=== PATIENT | male | born 1950 | race Caucasian/White ===

== ENCOUNTER → 2017-07-13 11:11 | Outpatient (CLI) | payer MEDICARE, OTHER, SELFPAY ==
[2017-07-13 12:37] LABS: Amphetamine Urine VISTA NEGATIVE (<1000 ng/mL); Barbiturate Urine VISTA NEGATIVE (< 200 ng/mL); Benzodiazepine Urine VISTA NEGATIVE (< 200 ng/mL); Cocaine Urine VISTA NEGATIVE (< 300 ng/mL); Ecstacy Urine VISTA NEGATIVE (< 500 ng/mL); Methadone Urine VISTA NEGATIVE (< 300 ng/mL); PCP Urine VISTA NEGATIVE (< 25 ng/mL); THC Urine VISTA NEGATIVE (< 50 ng/mL); Vista UDS pH Range 5
== END ==
PROVIDERS: Family Provider Family Medicine; PCP Family Medicine; Visit Provider Anesthesiology Pain Medicine
DX: F11.20 Opioid dependence, uncomplicated (principal)
CPT/HCPCS: 80307

== ENCOUNTER → 2017-10-27 09:52 | Outpatient (CLI) | payer MEDICARE, OTHER, SELFPAY ==
[2017-10-28 14:26] LABS: PSA, Free 0.61 ng/mL; PSA, Free % 11.1 % (.); PSA, Total Ultrasensitive 5.5 ng/mL (0.0-4.0)
== END ==
PROVIDERS: Family Provider Family Medicine; PCP Family Medicine; Visit Provider Nurse Practitioner Adult Health
DX: R97.20 Elevated prostate specific antigen [PSA] (principal); E29.1 Testicular hypofunction
CPT/HCPCS: 36415; 84153; 84154; 84403

== ENCOUNTER → 2017-11-09 09:35 | Outpatient (CLI) | payer MEDICARE, OTHER, SELFPAY ==
[2017-11-09 10:50] LABS: Anion Gap 6 (5-15); BUN 31 mg/dL (7-18); BUN/Creat Ratio 17.8 RATIO (10-20); Calcium,Total 9.1 mg/dL (8.5-10.1); Chloride 108 mmol/L (98-107); Creatinine, Serum 1.74 mg/dL (0.70-1.30); EST Glomerular Filtration Rate 42 mL/min (>60); Est Glom Filt Rate - Afr Amer 51 mL/min (>60); Glucose 110 mg/dL (74-106); Potassium 4.3 mmol/L (3.5-5.1); Sodium Level 144 mmol/L (136-145)
== END ==
PROVIDERS: Visit Provider Urology
DX: C61 Malignant neoplasm of prostate (principal)
CPT/HCPCS: 36415; 80048

== ENCOUNTER → 2017-12-15 18:14 | Outpatient (CLI) | payer MEDICARE, OTHER, SELFPAY ==
--- NOTE | 2017-12-15 | IMM_PTH ---
PATIENT: CHAS BERGERON LOC: [facility] U#:[id number] AGE/SX: 75/M ROOM: RE12/15/[address]: Dr. Gera Dee MD : 1950 BED: DIS: SPEC #: [id number] RECD: 12/20/17 11:14 STATUS: VLAD REGopi #: [id number] TONYA: 12/15/17 00:[address]: Gera Dee DEPT: IMMUNOHISTOCHEMISTRY RECD BY: Xuan Barbosa ENTERED: 12/20/17 11:16 SP TYPE: IMMUNO OTHR DR: No Primary Care Phys Tissues: D - PROSTATE LEFT Procedures: P40 (add) 34BE12 (initial) PHYSICIAN & INSTITUTION [place] [id number] SPECIMEN INFORMATION: Tissue Source: D - Left prostate, apex, core biopsy Clinical Info: Elevated PSA Specimen Number: [id number] CPT code: 48744, 44500 METHODOLOGY: Deparaffinized sections of prefer/formalin-fixed tissue or PAP/DQ stained slides are incubated with monoclonal/polyclonal antibodies/oligonucleotide probes. Localization is made via biotin free immunoperoxidase method. Appropriate controls are performed and reacted as expected. Results on target cell population are indicated in the following table: RESULTS: ANTIBODY / CLONE RESULT Block D P40 (BC28) negative 34BE12 (34BE12) negative These tests were developed and their performance characteristics determined by [facility]. They may not have been cleared or approved by the U.S. Food and Drug Administration. The FDA has determined that such clearance or approval is not necessary. INTERPRETATION: D. Left prostate, apex, core biopsy: Adenocarcinoma. SJ:kevin 12/20/17
--- NOTE | 2017-12-15 | PROSBIL_PTH ---
PATIENT: CHAS BERGERON LOC: [facility] U#:[id number] AGE/SX: 75/M ROOM: RE12/15/[address]: Dr. Gera Dee MD : 1950 BED: DIS: SPEC #: [id number] RECD: 12/16/17 08:34 STATUS: VLAD DARCI #: [id number] TONYA: 12/15/17 00:[address]: Gera Dee DEPT: SURGICAL PATHOLOGY RECD BY: Huseyin Edmonds ENTERED: 12/16/17 08:34 SP TYPE: PROST BX JACKI DR: No Primary Care Phys Tissues: A - PROSTATE RIGHT B - PROSTATE RIGHT C - PROSTATE RIGHT D - PROSTATE LEFT E - PROSTATE LEFT F - PROSTATE LEFT Procedures: PROSTATE BX HEADER OPERATION: Prostate biopsy PRE-OP DIAGNOSIS: Elevated PSA TISSUE SUBMITTED: A - Right apex, B - Right mid, C - Right base, D - Left apex, E - Left mid, F - Left base MICROSCOPIC DIAGNOSIS A. Right prostate, apex, core biopsy: Prostatic adenocarcinoma: [place] grade: 3+4=7 Number of cores involved: 2 out of 3 Proportion of tissue involved: ~30% Perineural invasion: Not identified. Greatest tumor length: 0.5 cm B. Right prostate, mid, core biopsy: Prostatic tissue, negative for malignancy. C. Right prostate, base, core biopsy: Prostatic tissue, negative for malignancy. D. Left prostate, apex, core biopsy: Prostatic adenocarcinoma: [place] grade: 3+4=7 Number of cores involved: 1 out of 2 Proportion of tissue involved: <5% Perineural invasion: Not identified. Greatest tumor length: 0.1 cm See comment. E. Left prostate, mid, core biopsy: Focal high-grade prostatic intraepithelial neoplasia (HGPIN). F. Left prostate, base, core biopsy: Tissue lost during processing. SJ:kevin 12/20/17 COMMENT D. Immunohistochemistry ([id number]) supports the above diagnosis. Please make reference to previous specimen ([id number]), right prostate, apex, mid and base and left prostate, apex, mid and base core biopsies with diagnosis of prostate tissue, negative for malignancy. Slides are reviewed again. Case has been reviewed in consultation with Dr. Nolasco who concurs with the above diagnosis. IDC:AM MICROSCOPIC DESCRIPTION Slides are reviewed. GROSS DESCRIPTION A - Received is one container designated prostate, right apex. The specimen consists of three elongated fragments of light wellington-white soft tissue each measuring 1 cm in length and 0.1 cm in diameter. The specimen is totally submitted in one cassette. B - Received is one container designated prostate, right mid. The specimen consists of one elongated fragment of light [place]-white soft tissue measuring 2 cm in length and 0.1 cm in diameter. The specimen is totally submitted in one cassette. C - Received is one container designated prostate, right base. The specimen consists of one elongated fragment of light wellington-white soft tissue measuring 1 cm in length and 0.1 cm in diameter. The specimen is totally submitted in one cassette. D - Received is one container designated prostate, left apex. The specimen consists of two elongated fragments of light wellington-white soft tissue each measuring 0.8 cm in length and 0.1 cm in diameter. The specimen is totally submitted in one cassette. E - Received is one container designated prostate, left mid. The specimen consists of one elongated fragment of light wellington-white soft tissue measuring 1 cm in length and 0.1 cm in diameter. The specimen is totally submitted in one cassette. F - Received is one container designated prostate, left base. The specimen consists of one elongated fragment of light wellington-white soft tissue each measuring 1 cm in length and 0.1 cm in diameter. The specimen is totally submitted in one cassette. / AM:kevin 12/16/17 TC:0 [facility]: [id number]
== END ==
PROVIDERS: Visit Provider Urology
DX: R97.20 Elevated prostate specific antigen [PSA] (principal)
CPT/HCPCS: 88305; 88341; 88342; G0416

== ENCOUNTER → 2017-12-22 08:59 | Outpatient (CLI) | payer MEDICARE, OTHER, SELFPAY | PROVIDERS: Visit Provider Urology | DX: C61 Malignant neoplasm of prostate (principal) | CPT/HCPCS: 78306 ==

== ENCOUNTER 2021-01-23 11:37 | Emergency (ER) | payer MEDICARE, OTHER, SELFPAY ==
[2021-01-23 11:38] VITALS: BP 162/97; PULSE 86; RESP 18; TEMP 36.2; O2SAT 96; BMI 32.1
--- NOTE | 2021-01-23 12:09 | EKG12_ITS ---
Test Reason : COUGH Blood Pressure : / mmHG Vent. Rate : 061 BPM Atrial Rate : 061 BPM P-R Int : 234 ms QRS Dur : 098 ms QT Int : 452 ms P-R-T Axes : 005 -33 -17 degrees QTc Int : 455 ms Sinus rhythm with 1st degree A-V block Left axis deviation Voltage criteria for left ventricular hypertrophy Abnormal ECG Confirmed by CHUY CHAKRABORTY, JEFFRY ([id number]), editor sound NIRALI ORTEGA ([id number]) on 01/26/2021 12:41:37 PM Referred By: BENTLEY Confirmed By:LUIS VERA MD
--- NOTE | 2021-01-23 12:14 | EX.ED.DYSGE1 ---
HPI History of Present Illness Chief Complaint: Cough Informant: patient Narrative Narrative: Patient is a 70-year-old male with remote history of prostate cancer status post prostatectomy, stroke and hole in his heart on chronic Xarelto therapy presenting with cough and hemoptysis. Patient states he has had a productive cough for the past 4 to 5 weeks. He notes the sputum has been light green but over the last 2 days he became dark blood. He has had some associated shortness of breath with this for the past month. He notes he gets a burning sensation in his upper lungs as if he was running. He denies any chest pain or fever. He has had some associated sinus drainage. He denies any swelling of his legs. He denies any new medications and states he has been compliant with Xarelto and not missed any doses. Notes that he does have a known pulmonary nodule in his right lung. [facility] Medical History CVA (cerebral vascular accident) GERD (gastroesophageal reflux disease) Heart defect High cholesterol HTN (hypertension) Prostate CA Home Medications hydrocodone-acetaminophen 1 ea PO TID 07/18/16 [History Last Taken 12/11/16] aspirin 81 mg PO DAILY 12/11/16 [History Last Taken 12/11/16] atorvastatin 80 mg PO DAILY 12/11/16 [History Last Taken 12/11/16] lisinopril [Zestril] 10 mg PO DAILY 12/11/16 [History Last Taken 12/11/16] metoprolol succinate 50 mg PO DAILY 12/11/16 [History Last Taken 12/11/16] omeprazole 40 mg PO DAILY 01/23/21 [History Last Taken Unknown] rivaroxaban [Xarelto] 20 mg PO DAILY 01/23/21 [History Last Taken Unknown] Allergy/AdvReac Type Severity Reaction Status Date / Time morphine AdvReac Other Verified 01/23/21 11:41 Surgical History H/O laminectomy Social History Smoking Status: Former smoker ROS ROS ED Constitutional Constitutional ED: Denies chills or fever(s) Eyes Eyes: Denies change in vision ENT ENT ED: Reports other Details: Sinus drainage ; Denies ear pain Cardiovascular Cardiovascular: Denies chest pain Respiratory/Chest Respiratory/Chest: Reports cough, dyspnea, sputum and other Details: Hemoptysis Gastrointestinal Gastrointestinal: Denies abdominal pain, nausea or vomiting Musculoskeletal Musculoskeletal: Denies arthralgias or myalgias Neurologic Neurologic: Denies headache(s) or weakness EXAM Physical Exam Const Vital Signs: 01/23/21 11:38 01/23/21 11:49 01/23/21 13:38 Temperature 97.1 F L Temperature Source Temporal Pulse Rate 86 69 Respiratory Rate 18 15 Respiratory Effort Normal Non-Labored Respiratory Depth Normal Respiratory Pattern Normal Blood Pressure 162/97 H 136/79 H Blood Pressure Mean 118 98 Pulse Ox 96 95 Oxygen Delivery Method Room Air Room Air 01/23/21 14:08 Temperature Temperature Source Pulse Rate 69 Respiratory Rate 14 Respiratory Effort Respiratory Depth Respiratory Pattern Blood Pressure 134/76 H Blood Pressure Mean Pulse Ox 95 Oxygen Delivery Method Positive well nourished and well developed General Appearance ED: well developed HEENT Reports TM's clear and moist mucous membranes Negative for tenderness Tympanic Membrane ED: Yes TM's clear Eyes PERRL and EOMs intact bilaterally Neck no lymphadenopathy, supple and no JVD Chest Wall inspection of chest normal Resp normal respiratory effort and clear to auscultation bilaterally Cardio regular rate, regular rhythm and no murmurs GI normal to inspection, nondistended, normoactive bowel sounds and non-tender Extremity normal to inspection General Extremety ED: Negative for edema General Extremity: Negative for edema Neuro oriented x3 and CN's II-XII intact bilaterally Sensorium / Orientation: alert Motor Exam: Negative for general weakness Psych mental status grossly normal Skin no rashes or lesions noted MDM MDM MDM Narrative Medical decision making narrative: Patient is evaluated for hemoptysis. He appears nontoxic in no acute distress. He had a cough in the past month. He is already had a negative Covid test. Work-up largely unremarkable. He is hemodynamically stable. He does not have any hemoptysis in the emergency room. CT of the chest obtained. Patient declined IV contrast stating that his kidney and heart doctor both told him that he should not have IV contrast. The risk and benefits are discussed and patient is counseled that we could be missing more subtle because of his hemoptysis without IV contrast. He verbalized acknowledgment and understanding of this. CT does not show any acute process to explain his presentation. His white blood cell count is normal. I do not suspect a secondary pneumonia. It is possible that he has postnasal drip as he has been having sinus drainage and acne triggers cough. He likely has some irritation/bronchitis causing his hemoptysis. He will follow-up with his primary care doctor. At this time I do not think he needs to hold his Xarelto. He is on lisinopril which also could be causing his cough. He is encouraged to take Zyrtec and Flonase to see if it helps with his symptoms. Patient is counseled on signs and symptoms requiring return to the emergency room. Patient verbalizes agreement and understand this plan. Patient discharged home in stable and improved condition. Lab Data Labs: Laboratory Results - last 24 hr 01/23/21 01/23/21 01/23/21 12:20 12:20 12:20 WBC 5.2 RBC 4.32 L Hgb 12.4 L Hct 38.3 L MCV 88.7 MCH 28.7 MCHC 32.4 RDW Std Deviation 45.1 H RDW Coeff of Barrett 13.9 Plt Count 145 L MPV 11.3 Immature Gran % (Auto) 0.600 Neut % (Auto) 66.6 Lymph % (Auto) 20.2 [place] % (Auto) 11.0 H Eos % (Auto) 1.2 Baso % (Auto) 0.4 Absolute Neuts (auto) 3.5 Absolute Lymphs (auto) 1.05 Nucleated RBC % 0 PT 14.1 INR 1.2 Sodium Cancelled Potassium Cancelled Chloride Cancelled Carbon Dioxide Cancelled Anion Gap Cancelled BUN Cancelled Creatinine Cancelled Estim Creat Clear Calc Cancelled Est GFR (MDRD) Af Amer Cancelled Est GFR (MDRD) Non-Af Cancelled BUN/Creatinine Ratio Cancelled Glucose Cancelled Calcium Cancelled 01/23/21 12:35 WBC RBC Hgb Hct MCV MCH MCHC RDW Std Deviation RDW Coeff of Barrett Plt Count MPV Immature Gran % (Auto) Neut % (Auto) Lymph % (Auto) [place] % (Auto) Eos % (Auto) Baso % (Auto) Absolute Neuts (auto) Absolute Lymphs (auto) Nucleated RBC % PT INR Sodium 137 Potassium 4.2 Chloride 105 Carbon Dioxide 27.0 Anion Gap 5 BUN 28 H Creatinine 1.68 H Estim Creat Clear Calc 48.25 Est GFR (MDRD) Af Amer 52 L Est GFR (MDRD) Non-Af 43 L BUN/Creatinine Ratio 16.7 Glucose 130 H Calcium 9.0 Radiography Diagnostic Testing: Clinical Impression(s) from Imaging Studies Chest CT 01/23/21 12:28 IMPRESSION: 1. Unremarkable noncontrast chest. Electronically Signed: Ad Hill MD at 13:31 EDT Tel , Service support , Discharge Plan Triage Chief Complaint: Cough ED Provider: Guadalupe Mack Dx/Rx/DC Orders Clinical Impression: Cough with hemoptysis Instructions: ED Hemoptysis Prescriptions: No Action hydrocodone-acetaminophen 1 EACH tablet 1 ea PO TID RF: 0 aspirin 81 MG tablet,chewable 81 mg PO DAILY RF: 0 atorvastatin 80 MG tablet 80 mg PO DAILY RF: 0 lisinopril [Zestril] 5 MG tablet 10 mg PO DAILY RF: 0 metoprolol succinate 25 MG tablet extended release 24 hr 50 mg PO DAILY RF: 0 omeprazole 40 mg capsule,delayed release(DR/EC) 40 mg PO DAILY RF: 0 Xarelto 20 mg Tablet 20 mg PO DAILY RF: 0 Primary Care Provider: Sintia Mayorga Referrals: Sintia Mayorga DO [Primary Care Provider] - Activity Restrictions/Additional Instructions: Your work-up is largely normal today. Please follow-up with your primary care doctor. If the cough with blood continues you might need to be referred to a lung specialist. Try taking ecou-ixt-agylyne Zyrtec and Flonase to see if it helps with your symptoms. Please discuss your medication lisinopril as this can cause a cough with your primary care doctor. Disposition Disposition: Home, Self Care Discharge Date/Time: 01/23/21 14:14
[2021-01-23 12:26] LABS: Absolute Lymphocyte Count 1.05 X10^3/uL (0.83-4.51); Absolute Neutrophil Count 3.5 X10^3/uL (2.0-7.7); Basophil# 0.02 X10^3/uL; Basophil% 0.4 % (0-1); Eosinophil# 0.06 X10^3/uL; Eosinophils% 1.2 % (0-5); Hematocrit 38.3 % (40-54); Hemoglobin 12.4 g/dL (13.0-16.5); Lymphocyte # 1.05 X10^3/ul (0.83-4.51); Lymphocyte % 20.2 % (19-41); Mean Corp Hgb Conc 32.4 g/dL (32-36); Mean Corpuscular Hgb 28.7 pg (27.0-32.0); Mean Corpuscular Volume 88.7 fL (80-94); Mean Platelet Vol. 11.3 fl (6.2-12.0); Monocyte# 0.57 X10^3/uL; NRBC Flagged by Analyzer 0 % (0-5); Neutrophil # 3.47 X10^3/uL (2.7-7.7); Neutrophil % 66.6 % (47-70); Platelet Count 145 K/mm3 (150-450); RBC Distribution Width CV 13.9 % (11.6-14.6); RBC Distribution Width SD 45.1 fl (35.1-43.9); Red Blood Count 4.32 M/mm3 (4.6-6.2); White Blood Count 5.2 K/mm3 (4.4-11.0)
--- NOTE | 2021-01-23 12:28 | CT_ITS ---
STUDY: CT CHEST WITHOUT CONTRAST REASON FOR EXAM: Male, 70 years old. Cough for one month, blood since yesterday shortness of breath RADIATION DOSAGE (If Supplied By Facility): CTDIvol = ( 17.10 ) mGy, DLP = ( 666.53 ) mGycm TECHNIQUE: Transaxial imaging was performed without the administration of intravenous contrast material. Individualized dose optimization techniques were used for this CT. COMPARISON: None. FINDINGS: Examination is technically limited due to lack of IV contrast. Lungs are clear with minimal scattered benign granulomata. These do not require further follow-up imaging. Central airways are patent. Pleural surfaces are intact. There are benign calcified dystrophic mediastinal lymph nodes. Otherwise mediastinal contents are normal. Coronary arteries are moderately diseased. Cardiac chambers are normal. Aorta and pulmonary artery are normal size. The rest Limited upper abdominal images are unremarkable. Osseous structures are intact. CT/Chest without Contrast IMPRESSION: 1. Unremarkable noncontrast chest. Electronically Signed: Ad Hill MD at 13:31 EDT Tel , Service support ,
[2021-01-23 12:39] LABS: International Normalized Ratio 1.2; Prothrombin Time (Protime)PT. 14.1 SECONDS (11.7-14.9)
[2021-01-23 12:54] LABS: Anion Gap 5 (5-15); BUN 28 mg/dL (7-18); BUN/Creat Ratio 16.7 RATIO (10-20); Chloride 105 mmol/L (98-107); Creatinine, Serum 1.68 mg/dL (0.70-1.30); EST Glomerular Filtration Rate 43 mL/min (>60); Est Glom Filt Rate - Afr Amer 52 mL/min (>60); Estimated Creatinine Clearance 48.25 ml/min; Glucose 130 mg/dL (74-106); Potassium 4.2 mmol/L (3.5-5.1); Sodium Level 137 mmol/L (136-145)
[2021-01-23 13:38] VITALS: BP 136/79; PULSE 69; RESP 15; O2SAT 95
[2021-01-23 14:08] VITALS: BP 134/76; PULSE 69; RESP 14; O2SAT 95
== END 2021-01-23 14:14 | disposition home or self-care (01) ==
PROVIDERS: Emergency Provider Emergency Medicine; PCP Family Medicine
DX: R04.2 Hemoptysis (principal); R91.1 Solitary pulmonary nodule; I10 Essential (primary) hypertension; E78.00 Pure hypercholesterolemia, unspecified; K21.9 Gastro-esophageal reflux disease without esophagitis; Z79.01 Long term (current) use of anticoagulants; Z79.82 Long term (current) use of aspirin; Z79.899 Other long term (current) drug therapy; Z87.891 Personal history of nicotine dependence; Z86.73 Personal history of transient ischemic attack (TIA), and cerebral infarction without residual deficits; Z85.46 Personal history of malignant neoplasm of prostate; Z90.79 Acquired absence of other genital organ(s)
CPT/HCPCS: 71250; 80048; 85025; 85610; 93005; 99284; A4216

== ENCOUNTER 2021-10-31 15:46 | Emergency (ER) | payer MEDICARE, OTHER, SELFPAY ==
[2021-10-31 15:47] VITALS: BP 137/83; PULSE 86; RESP 16; TEMP 37.4; O2SAT 95; BMI 32.1
--- NOTE | 2021-10-31 16:09 | EDS_ITS ---
HPI <DOLORES Irizarry - Last Filed: 10/31/21 17:25> History of Present Illness Chief Complaint: General Illness Narrative Narrative: 71-year-old male with past medical history of HTN, HLD, CVA, PFO not requiring surgical repair, takes Xarelto presents with a positive COVID test. He states on 10/21 he was in [place] and ate bad food and had extreme vomiting and diarrhea and renal failure. He was hospitalized for 5 days in [place]. They discharged him on cefuroxime and Flagyl which he is still taking. His vomiting and diarrhea have resolved in the last day or 2 but he has had significantly decreased p.o. intake. Today he felt fatigued with sore throat runny nose, cough and mildly short of breath so took a home COVID test that was positive. He is vaccinated plus booster. [facility] <DOLORES Irizarry - Last Filed: 10/31/21 17:25> [facility] Medical History CVA (cerebral vascular accident) GERD (gastroesophageal reflux disease) Heart defect High cholesterol HTN (hypertension) Prostate CA Home Medications hydrocodone 10 mg-acetaminophen 325 mg tablet 1 ea PO TID 07/18/16 [History Last Taken 12/11/16] aspirin 81 mg chewable tablet 81 mg PO DAILY 12/11/16 [History Last Taken 12/11/16] atorvastatin 80 mg tablet 80 mg PO DAILY 12/11/16 [History Last Taken 12/11/16] lisinopril 5 mg tablet (Zestril) 10 mg PO DAILY 12/11/16 [History Last Taken 12/11/16] metoprolol succinate 25 mg tablet,extended release 24 hr 50 mg PO DAILY 12/11/16 [History Last Taken 12/11/16] aspirin 81 mg tablet,delayed release (Adult Low Dose Aspirin) 81 mg PO DAILY 02/16/18 [History Last Taken Unknown] lisinopril 10 mg tablet 10 mg PO DAILY 02/16/18 [History Last Taken Unknown] meloxicam 15 mg tablet (Mobic) 15 mg PO DAILY 02/16/18 [History Last Taken Unknown] metoprolol succinate 25 mg tablet,extended release 24 hr 25 mg PO DAILY 02/16/18 [History Last Taken Unknown] pantoprazole 40 mg tablet,delayed release 40 mg PO DAILY PRN GERD #90 tabs 02/16/18 [Rx Last Taken Unknown] polymyxin B sulfate 10,000 unit-trimethoprim 1 mg/mL eye drops (Polytrim) 2 drp ophthalmic (eye) .q4 hr #10 mL 02/16/18 [Rx Last Taken Unknown] omeprazole 40 mg capsule,delayed release 40 mg PO DAILY 01/23/21 [History Last Taken Unknown] rivaroxaban 20 mg tablet (Xarelto) 20 mg PO DAILY 01/23/21 [History Last Taken Unknown] Allergy/AdvReac Type Severity Reaction Status Date / Time ciprofloxacin [From Cipro] AdvReac Intermediate became sick Verified 10/31/21 15:54 morphine AdvReac Other Verified 10/31/21 15:54 Surgical History H/O laminectomy Social History (System 02/06/21 @ 14:41 by Bam Valle) Smoking Status: Former smoker ROS <DOLORES Irizarry - Last Filed: 10/31/21 17:25> ROS ED ROS Narrative Constitutional: Positive for malaise. Negative for fever or chills. Eyes: Negative for visual change. ENT: Positive for sore throat, rhinorrhea. CVS: Negative for palpitations, chest pain, syncope. Respiratory: Negative for shortness of breath, cough, orthopnea. GI: Positive for nausea. Recent vomiting, diarrhea. Negative for abdominal pain, constipation, melena, hematochezia. : Negative for dysuria, hematuria or frequency. Neuro: Negative for headache, motor/sensory dysfunction. Skin: Negative for rash, abscess, or wound. Musc: Negative for joint pain, swelling, trauma. Heme: Negative for easy bruising, bleeding, lymphadenopathy. EXAM <DOLORES Irizarry - Last Filed: 10/31/21 17:25> Physical Exam Narrative Exam Narrative: CONST: Patient sitting in no acute distress. EYES: Normal inspection. ENT: Normal inspection, moist mucous membranes. NECK: Normal inspection. RESP: No respiratory distress, CTAB. CVS: Regular rate and rhythm, no murmur, no gallop. ABD: Soft and nontender, no guarding or rebound, nondistended. SKIN: Color normal, no rash, warm, dry, intact. EXTREMITIES: Normal appearance, no pedal edema. NEURO: Oriented x4. PSYCH: Normal affect. Const Vital Signs: 10/31/21 15:47 10/31/21 16:30 Temperature 99.4 F H 99.4 F H Temperature Source Temporal Oral Pulse Rate 86 86 Respiratory Rate 16 16 Blood Pressure 137/83 H 137/83 H Blood Pressure Mean 101 101 Pulse Ox 95 95 Oxygen Delivery Method Room Air Room Air <Dr. Dax Schmitz MD - Last Filed: 10/31/21 16:30> Physical Exam Const Vital Signs: 10/31/21 15:47 10/31/21 16:30 Temperature 99.4 F H 99.4 F H Temperature Source Temporal Oral Pulse Rate 86 86 Respiratory Rate 16 16 Blood Pressure 137/83 H 137/83 H Blood Pressure Mean 101 101 Pulse Ox 95 95 Oxygen Delivery Method Room Air Room Air MDM <DOLORES Irizarry - Last Filed: 10/31/21 17:25> [facility] MDM Narrative Medical decision making narrative: Patient tested positive for COVID today but the time of symptom onset isn't clear. He appears well and nontoxic. Afebrile and vital signs within normal limits. His medical exam is benign. CBC shows normal white count, hemoglobin of 11.8. He has normal electrolytes, BUN/creatinine of 15/1.93. He states when he was just hospitalized last month in [place] for renal failure his creatinine h ad been as high as 8 so it is trending down. CXR is negative. He was treated symptomatically here with IV fluids, Zofran, Tylenol. Pulse ox is 95% at rest, with ambulation was around 90 to 92% but quickly recovered with sitting. At this time he does not meet admission criteria but was counseled on return precautions including shortness of breath and was discharged in stable condition. Diagnosis 1. COVID-19 I have personally performed a face to face assessment of the patient and have reviewed the RENETTA Note. I performed a substantive portion of the visit including all aspects of the following. 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 Patient was healthy until about a week ago last Tuesday he was vacation with his at a resort in [place]. Vomiting and diarrhea had to be hospitalized for acute kidney failure with a creatinine of around 8 when he was discharged it was just below 4. He was in the hospital around 4 days in [place]. He is come back here he said he still does not feel quite well. And then today took a home COVID test which was positive so they brought him into the hospital. He said his vomiting and diarrhea is resolved. He denies any fever. He says he feels generally weak.] Exam is [71-year-old male no acute distress vital signs stable afebrile. Pulse ox 95% on room air no signs hypoxia. They he does not look septic or toxic. H EENT exam moist mucous members. Neck nontender. Lungs are clear. Heart regular rhythm no murmur. Rate about 80. Abdomen soft nontender. Moving all 4 extremities. Calves nontender without edema or cords. Neurologically is awake alert.] Medical Decision Making [71-year-old male with COVID and recent hospitalization with an acute kidney injury and acute kidney failure that improved and he was discharged to home from a [facility] hospital. Due to his generalized weakness To do screening labs and give him IV fluids. Chest x-ray is negative. CBC shows a white count of 10. H&H 11.8 and 35. Chemistries are pending.] Other additions or changes: [None] Lab Data Labs: Laboratory Results - last 24 hr 10/31/21 10/31/21 16:15 16:15 WBC 10.2 RBC 4.11 L Hgb 11.8 L Hct 35.6 L MCV 86.6 MCH 28.7 MCHC 33.1 RDW Std Deviation 49.2 H RDW Coeff of Barrett 15.6 H Plt Count 197 MPV 10.3 Immature Gran % (Auto) 1.500 H Neut % (Auto) 76.7 H Lymph % (Auto) 11.0 L Montour % (Auto) 10.2 H Eos % (Auto) 0.3 Baso % (Auto) 0.3 Absolute Neuts (auto) 7.8 H Absolute Lymphs (auto) 1.12 Nucleated RBC % 0 Sodium 139 Potassium 3.6 Chloride 110 H Carbon Dioxide 22.0 Anion Gap 7 BUN 15 Creatinine 1.93 H Estim Creat Clear Calc 41.41 Est GFR (MDRD) Af Amer 44 L Est GFR (MDRD) Non-Af 37 L BUN/Creatinine Ratio 7.8 L Glucose 115 H Calcium 8.8 Radiography Diagnostic Testing: Clinical Impression(s) from Imaging Studies Chest X-Ray 10/31/21 16:14 IMPRESSION: No acute cardiopulmonary process. Electronically Signed: Irena Pruitt MD at 17:10 EDT , <Dr. Dax Schmitz MD - Last Filed: 10/31/21 16:30> [facility] MDM Narrative Medical decision making narrative: I have personally performed a face to face assessment of the patient and have reviewed the RENETTA Note. I performed a substantive portion of the visit including all aspects of the following. 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 Patient was healthy until about a week ago last Tuesday he was vacation with his at a resort in [place]. Vomiting and diarrhea had to be hospitalized for acute kidney failure with a creatinine of around 8 when he was discharged it was just below 4. He was in the hospital around 4 days in [place]. He is come back here he said he still does not feel quite well. And then today took a home COVID test which was positive so they brought him into the hospital. He said his vomiting and diarrhea is resolved. He denies any fever. He says he feels generally weak.] Exam is [71-year-old male no acute distress vital signs stable afebrile. Pulse ox 95% on room air no signs hypoxia. They he does not look septic or toxic. H EENT exam moist mucous members. Neck nontender. Lungs are clear. Heart regular rhythm no murmur. Rate about 80. Abdomen soft nontender. Moving all 4 extremities. Calves nontender without edema or cords. Neurologically is awake alert.] Medical Decision Making [71-year-old male with COVID and recent hospitalization with an acute kidney injury and acute kidney failure that improved and he was discharged to home from a [facility] hospital. Due to his generalized weakness To do screening labs and give him IV fluids. Chest x-ray is negative. CBC shows a white count of 10. H&H 11.8 and 35. Chemistries are pending.] Other additions or changes: [None] Lab Data Attestation: I reviewed the patient's lab results. Labs: Laboratory Results - last 24 hr 10/31/21 10/31/21 16:15 16:15 WBC 10.2 RBC 4.11 L Hgb 11.8 L Hct 35.6 L MCV 86.6 MCH 28.7 MCHC 33.1 RDW Std Deviation 49.2 H RDW Coeff of Barrett 15.6 H Plt Count 197 MPV 10.3 Immature Gran % (Auto) 1.500 H Neut % (Auto) 76.7 H Lymph % (Auto) 11.0 L Montour % (Auto) 10.2 H Eos % (Auto) 0.3 Baso % (Auto) 0.3 Absolute Neuts (auto) 7.8 H Absolute Lymphs (auto) 1.12 Nucleated RBC % 0 Sodium 139 Potassium 3.6 Chloride 110 H Carbon Dioxide 22.0 Anion Gap 7 BUN 15 Creatinine 1.93 H Estim Creat Clear Calc 41.41 Est GFR (MDRD) Af Amer 44 L Est GFR (MDRD) Non-Af 37 L BUN/Creatinine Ratio 7.8 L Glucose 115 H Calcium 8.8 Radiography Chest X-Ray - ED: 1 View, Read by ED Physician, Heart, Lungs, Mediastinum, Bony Structures, No Acute Disease and Chronic Changes Diagnostic Testing: Clinical Impression(s) from Imaging Studies Chest X-Ray 10/31/21 16:14 IMPRESSION: No acute cardiopulmonary process. Electronically Signed: Irena Pruitt MD at 17:10 EDT Reading Location ID and State: [facility] / [place] Tel , Service support , Chest x-ray, portable interpreted by myself shows no acute abnormality. Normal cardiac silhouette. No infiltrate. Discharge Plan Triage Chief Complaint: General Illness ED Midlevel Provider: Shamika Beverly ED Provider: Dax Schmitz Dx/Rx/DC Orders Clinical Impression: COVID-19 Instructions: Coronavirus Disease 2019 (COVID-19): Caring for Yourself or Others Prescriptions: No Action meloxicam [Mobic] 15 mg tablet 15 mg PO DAILY lisinopril 10 mg tablet 10 mg PO DAILY aspirin [Adult Low Dose Aspirin] 81 mg tablet,delayed release (DR/EC) 81 mg PO DAILY metoprolol succinate 25 mg tablet extended release 24 hr 25 mg PO DAILY polymyxin B sulf-trimethoprim [Polytrim] 10,000 unit- 1 mg/mL drops 2 drp OPHTHALMIC .q4 hr Qty: 10 0RF Rx Instructions: while awake; do not exceed 6 doses in 24 hours may use for 3-5 days pantoprazole 40 mg tablet,delayed release (DR/EC) 40 mg PO DAILY PRN (Reason: GERD) Qty: 90 3RF hydrocodone-acetaminophen 1 EACH tablet 1 ea PO TID aspirin 81 MG tablet,chewable 81 mg PO DAILY atorvastatin 80 MG tablet 80 mg PO DAILY lisinopril [Zestril] 5 MG tablet 10 mg PO DAILY metoprolol succinate 25 MG tablet extended release 24 hr 50 mg PO DAILY omeprazole 40 mg capsule,delayed release(DR/EC) 40 mg PO DAILY Label Comments: TAKE ONE CAPSULE BY MOUTH EVERY DAY Xarelto 20 mg Tablet 20 mg PO DAILY Primary Care Provider: Sintia Mayorga Referrals: Sintia Mayorga DO [Primary Care Provider] - Activity Restrictions/Additional Instructions: Take Tylenol 1000 mg every 6 hours as needed for fever or pain. Drink plenty of fluids. If any symptoms worsen or you have difficulty breathing come back to the ER. Disposition Disposition: Home, Self Care
--- NOTE | 2021-10-31 16:14 | RAD_ITS ---
STUDY: X-RAY CHEST REASON FOR EXAM: Male, 71 years old. Cough TECHNIQUE: Single frontal view of the chest. COMPARISON: CT dated 01/23/2021 FINDINGS: There is no new focal consolidation. Normal size heart. Normal mediastinum and janny. Normal visualized pulmonary arteries. There is atherosclerotic calcification of the aortic arch with tortuosity. Normal visualized thoracic spine. Normal visualized ribs, clavicles, and shoulders. There is no demonstrated abnormality of the visualized soft tissue structures of the upper abdomen. RAD/Chest 1 View (Portable) IMPRESSION: No acute cardiopulmonary process. Electronically Signed: Irena Pruitt MD at 17:10 EDT ,
[2021-10-31 16:24] LABS: Absolute Lymphocyte Count 1.12 X10^3/uL (0.83-4.51); Absolute Neutrophil Count 7.8 X10^3/uL (2.0-7.7); Basophil# 0.03 X10^3/uL; Basophil% 0.3 % (0-1); Eosinophil# 0.03 X10^3/uL; Eosinophils% 0.3 % (0-5); Hematocrit 35.6 % (40-54); Hemoglobin 11.8 g/dL (13.0-16.5); Lymphocyte # 1.12 X10^3/ul (0.83-4.51); Mean Corp Hgb Conc 33.1 g/dL (32-36); Mean Corpuscular Hgb 28.7 pg (27.0-32.0); Mean Corpuscular Volume 86.6 fL (80-94); Mean Platelet Vol. 10.3 fl (6.2-12.0); Monocyte# 1.04 X10^3/uL; Monocyte% 10.2 % (0-10); NRBC Flagged by Analyzer 0 % (0-5); Neutrophil # 7.81 X10^3/uL (2.7-7.7); Neutrophil % 76.7 % (47-70); Platelet Count 197 K/mm3 (150-450); RBC Distribution Width CV 15.6 % (11.6-14.6); RBC Distribution Width SD 49.2 fl (35.1-43.9); Red Blood Count 4.11 M/mm3 (4.6-6.2); White Blood Count 10.2 K/mm3 (4.4-11.0)
[2021-10-31] MEDS: Ondansetron 4 MG/2 ML Vial IV (16:26)
[2021-10-31] MEDS: Acetaminophen 500 MG Tablet 1000 MG PO (16:26)
[2021-10-31] MEDS: 0.9% Normal Saline 1,000 ML 999 ML IV (16:27)
[2021-10-31 16:30] VITALS: BP 137/83; PULSE 86; RESP 16; TEMP 37.4; O2SAT 95
[2021-10-31 16:47] LABS: Anion Gap 7 (5-15); BUN 15 mg/dL (7-18); BUN/Creat Ratio 7.8 RATIO (10-20); Calcium,Total 8.8 mg/dL (8.5-10.1); Chloride 110 mmol/L (98-107); Creatinine, Serum 1.93 mg/dL (0.70-1.30); EST Glomerular Filtration Rate 37 mL/min (>60); Est Glom Filt Rate - Afr Amer 44 mL/min (>60); Estimated Creatinine Clearance 41.41 ml/min; Glucose 115 mg/dL (74-106); Potassium 3.6 mmol/L (3.5-5.1); Sodium Level 139 mmol/L (136-145)
[2021-10-31 17:18] VITALS: O2SAT 95
== END 2021-10-31 17:39 | disposition home or self-care (01) ==
PROVIDERS: Physician Assistant; Emergency Provider Emergency Medicine; PCP Family Medicine; Visit Provider Emergency Medicine
DX: U07.1 COVID-19 (principal); E78.00 Pure hypercholesterolemia, unspecified; R53.1 Weakness; I10 Essential (primary) hypertension; K21.9 Gastro-esophageal reflux disease without esophagitis; Z79.01 Long term (current) use of anticoagulants; Z79.82 Long term (current) use of aspirin; Z79.1 Long term (current) use of non-steroidal anti-inflammatories (NSAID); Z79.899 Other long term (current) drug therapy; Z86.73 Personal history of transient ischemic attack (TIA), and cerebral infarction without residual deficits; Z85.46 Personal history of malignant neoplasm of prostate; Z87.891 Personal history of nicotine dependence
CPT/HCPCS: 71045; 80048; 85025; 96361; 96374; 99284; J7030; J2405

== ENCOUNTER 2023-04-22 17:04 | Emergency (ER) | payer MEDICARE, OTHER, SELFPAY ==
[2023-04-22 17:06] VITALS: BP 131/77; PULSE 65; RESP 14; TEMP 37.2; O2SAT 95; BMI 31.2
[2023-04-22 18:09] LABS: Bacteria 0 SEEN /hpf (None Seen); Mucous, Urine 0 SEEN /hpf (<or=2+); Squamous Epithelial Cells - UA 0 SEEN /hpf (0-5); White Blood Cells 0 SEEN /hpf (0-5)
[2023-04-22 18:20] LABS: Color, Urine Red (Yellow); Glucose, Dipstick Normal (Normal); Ketone-Dipstick Negative (Negative); Leukocyte Esterase-Dipstick 25 /ul (Negative); Nitrite-Dipstick Positive (Negative); Occult Blood-Urine 250 /ul (Negative); Protein-Dipstick 100 mg/dl (Negative); Urine Bilirubin Dipstick Negative (Negative); Urine Clarity Cloudy (Clear); Urine Urobilinogen Normal (Normal)
[2023-04-22 18:35] LABS: Red Blood Cells-Urine > 100 SEEN /hpf (0-5)
--- OUTSIDE RECORDS SUMMARY | 2023-04-22 19:17 | XMS RPT_ITS | CCD ---
Author Name Unknown Address [id number] [place] [address] Organization [facility] Care Team Providers Care Device Repair Technician Name Role Phone OCHOA RENO Unavailable Unavailable OCHOA RENO Unavailable Unavailable [facility], 837 Unavailable Unavail able SPENCER PAGAN Unavailable Unavailable SOREN REDDY Unavailable Unavailable ITRAT, AHMED Unavailable Unavailable UNKNOWN, PROVIDER Unavailable Unavailable ROSS ZHU Unavailable Unavailable ITRAT, AHMED Unavailable Unavailable RONIT BARNES Unavailable Unavailable Gus Patel Attending Unavailable UNKNOWN, PROVIDER Referring Unavailable Spencer Pagan Primary Care Unavailable Mark Dee Attending Unavailable UNKNOWN, PROVIDER Referring Unavailable Spencer Pagan Primary Care Unavailable Koko Anderson Attending Unavailable PROVIDER, UNKNOWN Referring Unavailable Sintia Mayorga Primary Care Unavailabl e MukeshShante bowersine Unavailable Unavailabl e Mukesh, Sintia C Unavailable Unavaila ble Unknown, Referring Provider Unavailable Unav ailable Sintia Mayorga Primary Care Provider [phone] MukeshGabrielle bowersherine C Unavailable Unavailable Unavailable [place] Sintia CANDELARIA Primary Care Provider U navailable Mukesh Sintia CANDELARIA Primary Care Provider Mukesh, Dr. Sintia Cobos Primary Care Unavailable Mukesh, Dr. Sintia Cobos Referring Unavailable [place], Dr. Sintia Cobos Attending Unavailable Mukesh, Dr. Sintia Cobos Primary Care Unavailable Mukesh, Dr. Sintia Cobos Primary Care Unavailable [place], Dr. Sintia Cobos Referring Unavailable [place], Dr. Sintia Cobos Attending Unavailable MUKESH, SINTIA Arriaga Attending Unavaila ble MUKESH, SINTIA C Primary Care Unavaila ble Mukesh DOSintia C Primary Care Provider Mukesh DOGabrielleSintia Primary Care Provider NASIR, RALEIGH Attending Unavailable MUKESH, SINTIA Primary Care Unavailabl e HUSEYIN DEE Attending Unavailable SAMAD, RALEIGH Referring Unavailable MUKESH, SINTIA Primary Care Unavailabl e SAMAD, RALEIGH Attending Unavailable MUKESH, SINTIA Primary Care Unavailabl e SAMAD, RALEIGH Attending Unavailable MUKESH, SINTIA Primary Care Unavailabl e SAMAD, RALEIGH Attending Unavailable MUKESH, SINTIA Primary Care Unavailabl e SAMAD, RALEIGH Referring Unavailable SAMAD, RALEIGH Attending Unavailable MUKESH, SINTIA Primary Care Unavailabl e KRAYNICK, EREN Referring Unavailable KRAYNICK, EREN Attending Unavailable KRAYNICK, EREN Referring Unavailable MUKESH, SINTIA Primary Care Unavailabl e SAMAD, RALEIGH Attending Unavailable SAMAD, RALEIGH Referring Unavailable MUKESH, SINTIA Primary Care Unavailabl e SAMAD, RALEIGH Attending Unavailable MUKESH, SINTIA Primary Care Unavailabl e MUKESH, SINTIA C Primary Care Unavaila ble MUKESH, SINTIA C Primary Care Unavaila ble Allergies Allergy Classification Reported Allergen(s) Allergy Type Date of Onset Reaction(s) Facility (12 sources) Morphine; Translations: [MORPHINE] Drug Allergy 7 Other (See Comments), Diarrhea, Other [facility] Repository (6 sources) Ciprofloxacin; Translations: [CIPROFLOXACIN] Drug Allergy 2 Other [facility] Medications Current Medications Medication Drug Class(es) Dates Sig (Normalized) Sig (Original) acetaminophen 325 mg oral tablet (1 source) Start: 05-25-2021 acetaminophen (TYLENOL) tablet 650 mg acetaminophen 325 mg / HYDROcodone bitartrate 10 mg oral tablet (20 sources) Opioid Agonist Start: 02-05-2022 take 1 tablet by mouth three times daily as needed HYDROcodone-acetami nophen ([place]) 10-325 MG tablet Take 1 tablet by mouth 3 times daily as needed. 0 02/05/2022 Active Completed/Discontinued Medications Medication Drug Class(es) Dates Sig (Normalized) Sig (Original) amLODIPine 5 mg oral tablet (8 sources) Dihydropyridine Calcium Channel Raymon Start: 04-01-2022 End: 04-01-2023 take 1 tablet by mouth once daily amLODIPine (NORVASC) 5 mg tablet Take 1 tablet by mouth once daily. 0 04/01/2022 Active Problems Active Problems Problem Classification Problem Date Documented Da te Episodic/Chronic Abdominal hernia (10 sources) Hiatal hernia; Translations: [Diaphragmatic hernia without mention of obstruction or gangrene] Episodic Acute cerebrovascular disease (20 sources) Ischemic stroke; Translations: [Cerebrovascular accident] Onset: 02-26-2018 Resolved: 05-30-2018 04-25-2018 Chronic Acute myocardial infarction (7 sources) Myocardial infarction; Translations: [Non-ST elevation (NSTEMI) myocardial infarction] Onset: 11-28-2016 11-28-2016 Chronic Aortic; peripheral; and visceral artery aneurysms (18 sources) Ascending aorta dilatation; Translations: [Aortic root dilatation] Onset: 12-13-2016 12-13-2016 Chronic Past or Other Problems Problem Classification Problem Date Documented Da te Episodic/Chronic Allergic reactions (2 sources) Allergy status to narcotic agent status; Translations: [Allergy status to narcotic agent status] Onset: 10-24-2017 Episodic Blindness and vision defects (6 sources) Disorder of refraction; Translations: [Unspecified disorder of refraction] Onset: 12-27-2016 07-15-2022 Episodic Cancer of prostate (12 sources) History of malignant neoplasm of prostate; Translations: [Personal history of malignant neoplasm of prostate] Resolved: 01-24-2019 Episodic Results Test Name Value Interpretation Reference Range Facil [facility] Vital Signs Date Time Vital Sign Value Performing Clinician Facility 04-02-2023 09:22-0500 Body temperature 102.79 [degF] Pooja De León APRN.CNP Work Phone: [facility] 04-02-2023 09:22-0500 Body weight 111.22 kg Pooja De León APRN.CNP Work Phone: [facility] 04-02-2023 09:22-0500 Diastolic blood pressure 73 mm[Hg] Pooja De León APRN.CNP Work Phone: [facility] 04-02-2023 09:22-0500 Heart rate 54 /min Poojacailin Sosaye PNEUMATIC TUBE OPERATOR.[employer] Work Phone: [facility] 04-02-2023 09:22-0500 SaO2% (BldA) [Mass fraction] 95 % Poojacailin Sosaye PNEUMATIC TUBE OPERATOR.[employer] Work Phone: [facility] 04-02-2023 09:22-0500 Systolic blood pressure 139 mm[Hg] Pooja oSsaye PNEUMATIC TUBE OPERATOR.[employer] Work Phone: [facility] 02-28-2023 10:59-0500 Body height 188 cm Raleigh Bo MD Work Phone: [facility] 02-28-2023 10:59-0500 Body mass index (BMI) [Ratio] 31.46 kg/m2 Raleigh Bo MD Work Phone: [facility] 02-28-2023 10:59-0500 Body weight 111.13 kg Raleigh Bo MD Work Phone: [facility] 02-28-2023 10:59-0500 Diastolic blood pressure 80 mm[Hg] Raleigh Bo MD Work Phone: [facility] 02-28-2023 10:59-0500 Heart rate 59 /min Raleigh Bo MD Work Phone: [facility] 02-28-2023 10:59-0500 SaO2% (BldA) [Mass fraction] 92 % Raleigh Bo MD Work Phone: [facility] 02-28-2023 10:59-0500 Systolic blood pressure 114 mm[Hg] Raleigh Bo MD Work Phone: [facility] 12-17-2022 11:46-0400 Body height 188 cm Kaitlyn Nair PNEUMATIC TUBE OPERATOR.[employer] Work Phone: [facility] 12-17-2022 11:46-0400 Body weight 109.32 kg Kaitlyn Nair PNEUMATIC TUBE OPERATOR.[employer] Work Phone: [facility] 09-01-2023 11:46-0400 Diastolic blood pressure 83 mm[Hg] Kaitlyn Nair PNEUMATIC TUBE OPERATOR.[employer] Work Phone: [facility] 12-17-2022 11:46-0400 Heart rate 55 /min Kaitlyn Nair PNEUMATIC TUBE OPERATOR.[employer] Work Phone: [facility] 12-17-2022 11:46-0400 Respiratory rate 16 /min Kaitlyn Nair PNEUMATIC TUBE OPERATOR.[employer] Work Phone: [facility] 12-17-2022 11:46-0400 SaO2% (BldA) [Mass fraction] 94 % Kaitlyn Nair PNEUMATIC TUBE OPERATOR.[employer] Work Phone: [facility] 12-17-2022 11:46-0400 Systolic blood pressure 147 mm[Hg] Kaitlyn Nair PNEUMATIC TUBE OPERATOR.[employer] Work Phone: [facility] 08-30-2022 11:39-0400 Body height 188 cm Raleigh Bo MD Work Phone: [facility] 08-30-2022 11:39-0400 Body mass index (BMI) [Ratio] 30.81 kg/m2 Raleigh Bo MD Work Phone: [facility] 08-30-2022 11:39-0400 Body weight 108.86 kg Raleigh Bo MD Work Phone: [facility] 08-30-2022 11:39-0400 Diastolic blood pressure 80 mm[Hg] Raleigh Bo MD Work Phone: [facility] 08-30-2022 11:39-0400 Heart rate 72 /min Raleigh Bo MD Work Phone: [facility] 08-30-2022 11:39-0400 Respiratory rate 15 /min Raleigh Bo MD Work Phone: [facility] 08-30-2022 11:39-0400 Systolic blood pressure 130 mm[Hg] Raleigh Bo MD Work Phone: [facility] 07-20-2022 11:03-0400 Body height 188 cm Huseyin Dee MD Work Phone: [facility] 07-20-2022 11:03-0400 Body mass index (BMI) [Ratio] 30.51 kg/m2 Huseyin Dee MD Work Phone: [facility] 07-20-2022 11:03-0400 Body weight 107.78 kg Huseyin Dee MD Work Phone: [facility] 07-20-2022 11:03-0400 Diastolic blood pressure 80 mm[Hg] Huseyin Dee MD Work Phone: [facility] 07-20-2022 11:03-0400 SaO2% (BldA) [Mass fraction] 91 % Huseyin Dee MD Work Phone: [facility] 07-20-2022 11:03-0400 Systolic blood pressure 158 mm[Hg] Huseyin Dee MD Work Phone: [facility] 03-31-2022 09:05-0500 Diastolic blood pressure 74 mm[Hg] Sintia Corina [place] Work Phone: [facility] Work Phone: 03-31-2022 09:05-0500 Systolic blood pressure 136 mm[Hg] Sintia C [place] Work Phone: [facility] Work Phone: 03-31-2022 09:04-0500 Body height 186.69 cm Sintia C [place] Work Phone: [facility] Work Phone: 03-31-2022 09:04-0500 Body mass index (BMI) [Ratio] 31.14 kg/m2 Sintia C Mukesh Work Phone: [facility] Work Phone: 03-31-2022 09:04-0500 Body surface area Derived from formula 2.33 m2 Sintia C Mukesh Work Phone: [facility] Work Phone: 03-31-2022 09:04-0500 Body temperature 97 [degF] Sintia Corina [place] Work Phone: [facility] Work Phone: 03-31-2022 09:04-0500 Body weight 108.52 kg Sintia C Mukesh Work Phone: [facility] Work Phone: 03-31-2022 09:04-0500 Diastolic blood pressure 70 mm[Hg] Sintia C [place] Work Phone: [facility] Work Phone: 03-31-2022 09:04-0500 Heart rate 65 /min Sintia C Mukesh Work Phone: [facility] Work Phone: 03-31-2022 09:04-0500 Respiratory rate 16 /min Sintia C Mukesh Work Phone: [facility] Work Phone: 03-31-2022 09:04-0500 SaO2% (BldA) [Mass fraction] 97 % Sintia C Mukesh Work Phone: [facility] Work Phone: 03-31-2022 09:04-0500 Systolic blood pressure 151 mm[Hg] Sintia C [place] Work Phone: [facility] Work Phone: 09-28-2021 09:16-0400 Body height 186.69 cm Sintia C Mukesh Work Phone: [facility] Work Phone: 09-28-2021 09:16-0400 Body mass index (BMI) [Ratio] 32.3 kg/m2 Sintia C Mukesh Work Phone: [facility] Work Phone: 09-28-2021 09:16-0400 Body surface area Derived from formula 2.37 m2 Sintia C Mukesh Work Phone: [facility] Work Phone: 09-28-2021 09:16-0400 Body temperature 97.2 [degF] Sintia C [place] Work Phone: [facility] Work Phone: 09-28-2021 09:16-0400 Body weight 112.58 kg Sintia C [place] Work Phone: [facility] Work Phone: 09-28-2021 09:16-0400 Diastolic blood pressure 73 mm[Hg] Sintia C [place] Work Phone: [facility] Work Phone: 09-28-2021 09:16-0400 Heart rate 56 /min Sintia C Mukesh Work Phone: [facility] Work Phone: 09-28-2021 09:16-0400 Respiratory rate 16 /min Sintia C [place] Work Phone: [facility] Work Phone: 09-28-2021 09:16-0400 SaO2% (BldA) [Mass fraction] 98 % Sintia C Mukesh Work Phone: [facility] Work Phone: 09-28-2021 09:16-0400 Systolic blood pressure 130 mm[Hg] Sintia C Mukesh Work Phone: [facility] Work Phone: 05-26-2021 18:56-0500 Diastolic blood pressure 69 mm[Hg] Archie Hurtado MD Work Phone: [facility] 05-26-2021 18:56-0500 Heart rate 65 /min Archie Hurtado MD Work Phone: [facility] 05-26-2021 18:56-0500 Respiratory rate 18 /min Archie Hurtado MD Work Phone: [facility] 05-26-2021 18:56-0500 SaO2% (BldA) [Mass fraction] 97 % Archie Hurtado MD Work Phone: [facility] 05-26-2021 18:56-0500 Systolic blood pressure 149 mm[Hg] Archie Hurtado MD Work Phone: [facility] 05-25-2021 12:04-0500 Body height 185.4 cm Archie Hurtado MD Work Phone: [facility] 05-25-2021 12:04-0500 Body mass index (BMI) [Ratio] 34.04 kg/m2 Archie Hurtado MD Work Phone: [facility] 05-25-2021 12:04-0500 Body temperature 98.1 [degF] Archie Hurtado MD Work Phone: [facility] 05-25-2021 12:04-0500 Body weight 117.03 kg Archie Hurtado MD Work Phone: [facility] 03-27-2021 08:58-0500 Body mass index (BMI) [Ratio] 26.6 kg/m2 Sintia Mayorga Work Phone: [facility] Work Phone: 03-27-2021 08:58-0500 Body surface area Derived from formula 2.18 m2 Sintia Calleshael Work Phone: [facility] Work Phone: 03-27-2021 08:58-0500 Body temperature 99.5 [degF] Sintia Corina Mukesh Work Phone: [facility] Work Phone: 03-27-2021 08:58-0500 Body weight 92.71 kg Sintia Marmichael Work Phone: [facility] Work Phone: 03-27-2021 08:58-0500 Diastolic blood pressure 79 mm[Hg] Sintia C [place] Work Phone: [facility] Work Phone: 03-27-2021 08:58-0500 Heart rate 64 /min Sintia C [place] Work Phone: [facility] Work Phone: 03-27-2021 08:58-0500 Respiratory rate 16 /min Sintia C Mukesh Work Phone: [facility] Work Phone: 03-27-2021 08:58-0500 SaO2% (BldA) [Mass fraction] 95 % Sintia C [place] Work Phone: [facility] Work Phone: 03-27-2021 08:58-0500 Systolic blood pressure 145 mm[Hg] Sintia C Mukesh Work Phone: [facility] Work Phone: 09-23-2020 08:44-0400 Body height 186.69 cm Sintia C [place] Work Phone: [facility] Work Phone: 09-23-2020 08:44-0400 Body mass index (BMI) [Ratio] 33.07 kg/m2 Sintia C [place] Work Phone: [facility] Work Phone: 09-23-2020 08:44-0400 Body surface area Derived from formula 2.39 m2 Sintia C Mukesh Work Phone: [facility] Work Phone: 09-23-2020 08:44-0400 Body temperature 95.3 [degF] Sintia C Mukesh Work Phone: [facility] Work Phone: 09-23-2020 08:44-0400 Body weight 115.24 kg Sintia C [place] Work Phone: [facility] Work Phone: 09-23-2020 08:44-0400 Diastolic blood pressure 69 mm[Hg] Sintia C [place] Work Phone: [facility] Work Phone: 09-23-2020 08:44-0400 Heart rate 63 /min Sintia C [place] Work Phone: [facility] Work Phone: 09-23-2020 08:44-0400 Respiratory rate 16 /min Sintia C Mukesh Work Phone: [facility] Work Phone: 09-23-2020 08:44-0400 SaO2% (BldA) [Mass fraction] 94 % Sintia C Mukesh Work Phone: [facility] Work Phone: 09-23-2020 08:44-0400 Systolic blood pressure 124 mm[Hg] Sintia C [place] Work Phone: [facility] Work Phone: 07-04-2020 10:55-0400 BMI (Body Mass Index) 32.1 kg/m2 Tyshawn LOPEZ Work Phone: 07-04-2020 10:55-0400 Body Temperature 97.81 [degF] Tyshawn LOPEZ Work Phone: 07-04-2020 10:55-0400 Body weight 113.4 kg Tyshawn LOPEZ Work Phone: 07-04-2020 10:55-0400 BP Diastolic 86 mm[Hg] Tyshawn LOPEZ Work Phone: 07-04-2020 10:55-0400 BP Systolic 157 mm[Hg] Tyshawn LOPEZ Work Phone: 07-04-2020 10:55-0400 Height 188 cm Tyshawn LOPEZ Work Phone: 07-04-2020 10:55-0400 Pulse (Heart Rate) 60 /min Tyshawn LOPEZ Work Phone: 07-04-2020 10:55-0400 Pulse Oximetry 99 % Tyshawn LOPEZ Work Phone: 07-04-2020 10:55-0400 Respiratory Rate 16 /min Tyshawn LOPEZ Work Phone: Encounters Encounter Date Encounter Type Care Provider Facility Start: 04-02-2023 End: 04-02-2023 ambulatory SINTIA MAYORGA Facility:[facility] Start: 04-02-2023 End: 04-02-2023 Patient encounter procedure Pooja De León APRN.[employer] Work Phone: [facility] Procedures Date Procedure Procedure Detail Performing Clinician Start: 08-23-2022 Lipid 1995 panel - S claudia or Plasma Raleigh Bo MD Work Phone: Start: 06-09-2022 Lipid 1996 panel - S claudia or Plasma Raleigh Bo MD Work Phone: Start: 05-26-2021 Assay of troponin quantitative Emerald Maximodebran PA-C Work Phone: Start: 05-26-2021 ECHOCARDIOGRAM PHARMACOLOGICAL STRESS TEST Emerald Ghimbasan PA-C Work Phone: Start: 05-26-2021 Assay of troponin quantitative Emerald Ghlonasan PA-C Work Phone: Start: 05-26-2021 Ecg routine ecg w/le ast 12 lds w/i&r Carey Enriquez PNEUMATIC TUBE OPERATOR - [employer] Work Phone: Start: 05-26-2021 Assay of troponin quantitative Emerald Ghimbasan PA-C Work Phone: Start: 05-26-2021 BASIC METABOLIC PANE L W/ REFLEX TO MG FOR LOW K Emerald Marshasan PA-C Work Phone: Start: 05-25-2021 Ecg routine ecg w/le ast 12 lds w/i&r Emerald Maximoasan PA-C Work Phone: Start: 05-25-2021 Assay of troponin quantitative Emerald Maximoasan PA-C Work Phone: Start: 05-25-2021 Ecg routine ecg w/le ast 12 lds w/i&r Emerald Maximoasan PA-C Work Phone: Start: 05-25-2021 Assay of troponin quantitative Leonila Diaz DO Work Phone: Start: 05-25-2021 Radiologic exam ches t single view Leonila Malonemar DO Work Phone: Start: 05-25-2021 Basic metabolic pane l calcium total Leonila Diaz DO Work Phone: Start: 05-25-2021 Ecg routine ecg w/le ast 12 lds w/i&r Leonila Diaz DO Work Phone: Start: 12-15-2015 Colonoscopy Raleigh judd MD Work Phone: Start: 04-06-2012 Colonoscopy Kaitlyn ross PNEUMATIC TUBE OPERATOR.[employer] Work Phone: Cardiac catheterization Beena Mayorga Colonoscopy Sintia guevara Plan of Treatment Date Care Activity Detail Author Start: 06-09-2027 Lipid panel Lipid Screening [facility] Start: 12-14-2025 Screening for malignant neoplasm of colon [facility] Start: 07-15-2025 Diabetes Screening Diabetes Screening [facility] Start: 08-24-2023 Creatinine measurement Creatinine Level [facility] Start: 08-24-2023 Lipid panel Lipid Panel [facility] Start: 08-24-2023 Potassium measurement Potassium Level [facility] Start: 07-16-2023 Creatinine measurement Serum Creatinine [facility] Start: 07-12-2023 End: 02-28-2025 US Heart Transthoracic Transthoracic echocardiogram (TTE) complete with contrast, bubble, strain, and 3D PRN CV Echocardiography Routine Aneurysm of ascending aorta without rupture Expected: 07/12/2023 (Approximate), Expires: 02/28/2025 [facility] Work Phone: Immunizations Immunization Date Immunization Notes Care Provider Daniel robbins 03-02-2022 influenza virus vaccine, unspecified formulation Raleigh Bo MD Work Phone: [facility] 03-26-2021 Moderna COVID-19 Vaccine 100 MCG/0.5ML Intramuscular Suspension Sintia Mayorga Work Phone: [facility] Work Phone: 09-23-2020 pneumococcal conjuga te vaccine, 13 valent; Translations: [Prevnar 13 Intramuscular Suspension] Sintia Mayorga Work Phone: [facility] Work Phone: Payers Date Payer Category Payer Unknown 2015 Unknown [id number] 2009 Medicare [id number] 2008 Medicare 2008 Private Health Insurance 1950 Unknown [id number] [id number] 1950 Unknown [id number] [id number] [id number] 1950 Unknown [id number] 2.16.8 [id number] 1950 Unknown [id number] 2.16.8 [id number] 1950 Unknown [id number] 2.16.8 [id number] 1950 Unknown [id number] 2.16.8 [id number] 1950 Unknown [id number] [id number] 1950 Unknown [id number] [id number] 1950 Unknown [id number] [id number] Medicare [id number] Social History Date Type Detail Facility Start: 10-09-2019 End: 04-02-2023 Tobacco smoking status [facility] Former smoker [employer] End: 10-31-1974 History of tobacco use Current smoker [employer] Work Phone: Start: 10-09-2019 End: 04-02-2023 Tobacco use and exposure Never used [facility] Work Phone: Start: 10-09-2019 End: 02-28-2023 Alcohol intake Current non-drinker of alcohol (finding) [facility] Work Phone: Start: 1950 Sex Assigned At Not on file [facility] Work Phone: Start: 06-26-2022 End: 08-30-2022 Exposure to SARS-CoV-2 (event) Not sure [facility] Work Phone: Start: 03-23-2020 End: 08-30-2022 Occasional alcohol use Occasional alcohol use [facility] Functional Status Date Assessment Result Facility NEGATED: Highlighted row Functional performance Functional status health issues are not documented Disease [facility] Work Phone: Mental Status Date Assessment Result Facility NEGATED: Highlighted row Cognitive function [Interpretation] Cognitive status health issues are not documented Disease [facility] Work Phone: Clinical Notes 02-25-2018 to 04-02-2023 Patient InstructionsPooja De León APRN.[employer] - 04/02/2023 9:19 AM Ariel Bo MD - 02/28/2023 11:00 AM ESTPatient Kaitlyn Snowden APRN.[employer] - 12/17/2022 11:56 AM EDTInstructions Note Date & Type Note Facility 04-02-2023 Note HNO ID: [id number] Author: Pooja De León APRN.[employer] Service: ? Author Type: Nurse Practitioner Type: Progress Notes Filed: 04/02/2023 9:47 AM Note Text: This note was created using Zopimter. Subjective Justo Clark is a 73 year old male. HPI by patient: Justo clark is a 73 year old presenting to the office with the complaint of viral symptoms. Started approximately since December . Associated symptoms include ear pain and itchy eyes. Seen in the this office and given antibiotics, no better. Congestion in the morning. Denies fever, cough, eye drainage and pain. Covid Immunization Dates Overdue - Covid-19 Vaccine ( season) Overdue since 12/17/2022 03/26/2021 Imm Admin: COVID-19 original vaccine, full dose, monovalent (MODERNA) 06/08/2020 Outside Immunization: COVID-19 (PFIZER), MRNA, LNP-S, PF, 30 MCG/0.3 ML DOSE 05/21/2020 Outside Immunization: COVID-19 (PFIZER), MRNA, LNP-S, PF, 30 MCG/0.3 ML DOSE Sick contacts: none. Smoking history/second hand smoke: none. OTC not used. No antibiotic use in the last 60 days. ALLERGIES Morphine Diarrhea Comment:Upset stomach Family History Reviewed Including Cardiac Diseases, Psychiatric Diseases, AND Substance Abuse Problem: Cancer Relation: Father Age of Onset: (Not Specified) Problem: Kidney Disease Relation: Father Age of Onset: (Not Specified) Problem: Amblyopia Relation: Mother Age of Onset: (Not Specified) Problem: Heart Relation: Mother Age of Onset: (Not Specified) Problem: Cataract Relation: Sister Age of Onset: (Not Specified) Problem: Heart Relation: Sister Age of Onset: (Not Specified) Problem: Kidney Disease Relation: Sister Age of Onset: (Not Specified) Problem: Cataract Relation: Brother Age of Onset: (Not Specified) Problem: Heart Relation: Brother Age of Onset: (Not Specified) Problem: Cancer Relation: Paternal Grandfather Age of Onset: (Not Specified) Problem: Heart Relation: Brother Age of Onset: (Not Specified) Problem: other (leukemia) Relation: Sister Age of Onset: (Not Specified) Social History Tobacco Use Smoking status: Former Types: Cigarettes Quit date: 1974 Years since quittin.9 Smokeless tobacco: Never Alcohol use: Yes Comment: occasional Drug use: No Active Ambulatory Problems Hypogonadism male Date Noted: 05/19/2011 PCO (posterior capsular opacification), right Date Noted: 12/27/2016 Refractive error Date Noted: 12/27/2016 Prostate cancer (HCC) Date Noted: 02/25/2018 Chronic systolic congestive heart failure (HCC) Date Noted: 02/25/2018 CKD (chronic kidney disease) Date Noted: 02/25/2018 Essential hypertension Date Noted: 02/25/2018 HLD (hyperlipidemia) Date Noted: 02/25/2018 Acute ischemic left MCA stroke (HCC) Date Noted: 02/26/2018 Resolved Ambulatory Problems Aphagia Date Noted: 02/25/2018 Past Medical History: No date: Aortic regurgitation No date: Arthritis No date: Cataracts, bilateral No date: Enlarged prostate No date: Erectile dysfunction No date: Esophageal spasm No date: GERD (gastroesophageal reflux disease) No date: Heart attack (HCC) No date: High blood pressure No date: MARSHALL (hard of hearing) No date: Numbness and tingling of both feet No date: Systolic congestive heart failure (HCC) Review of Systems Constitutional: Negative. HENT: Positive for ear pain. Eyes: Positive for itching. Negative for pain and redness. Respiratory: Negative. Cardiovascular: Negative. Gastrointestinal: Negative. Endocrine: Negative. Genitourinary: Negative. Musculoskeletal: Negative. Skin: Negative. Neurological: Negative. Objective BP 139/73 Pulse (!) 54 Temp (!) 39.3 ?C (102.8 ?F) Wt 111.2 kg (245 lb 3.2 oz) SpO2 95% BMI 31.48 kg/m? Physical Exam Vitals reviewed. Constitutional: General: He is awake. He is not in acute distress. Appearance: He is not ill-appearing, toxic-appearing or diaphoretic. HENT: Right Ear: Tympanic membrane, ear canal and external ear normal. Left Ear: Tympanic membrane, ear canal and external ear normal. Eyes: Extraocular Movements: Extraocular movements intact. Conjunctiva/sclera: Conjunctivae normal. Cardiovascular: Rate and Rhythm: Normal rate and regular rhythm. Pulmonary: Effort: Pulmonary effort is normal. Breath sounds: Normal breath sounds. Lymphadenopathy: Head: Right side of head: No submandibular or tonsillar adenopathy. Left side of head: No submandibular or tonsillar adenopathy. Cervical: No cervical adenopathy. Neurological: Mental Status: He is alert. Psychiatric: Behavior: Behavior is cooperative. Assessment and Plan (H92.03) Acute otalgia, bilateral (primary encounter diagnosis) Plan: methylPREDNISolone (MEDROL DOSE-PACK) 4 mg Dose-Pack (R29.898) TMJ click Plan: methylPREDNISolone (MEDROL DOSE-PACK) 4 mg Dose-Pack (H57.9) Itchy eyes Plan: Olopatadine (PATADAY (more content not included)... [facility] 04-02-2023 Instructions Pooja De León APRN.SERGE - 04/02/2023 9:43 AM EST (H92.03) Acute otalgia, bilateral (primary encounter diagnosis) Plan: methylPREDNISolone (MEDROL DOSE-PACK) 4 mg Dose-Pack (R29.898) TMJ click Plan: methylPREDNISolone (MEDROL DOSE-PACK) 4 mg Dose-Pack (H57.9) Itchy eyes Plan: Olopatadine (PATADAY ONCE DAILY RELIEF) 0.2 % drop Bilateral TMs are healthy. Will treat tmj dysfunction with steroids, take with food. Pataday drops for itchy eyes. -OTC tylenol as directed on the bottle. -Call Tuesday for a follow up with primary care, likely needs more of a workup than what is offered in [facility] if no improvement. Consider ENT. -Signs that warrant an ER evaluation: Sudden change/worsening in condition, lethargy, signs of dehydration, fever greater than 102 F that is not responding to Tylenol or ibuprofen (Motrin, Advil), drooling, difficulty swallowing, difficulty breathing, shortness of breath, chest pain, evidence of airway compromise (tripod position, neck extension, retractions), seizures, changes in mental status, or other concerns. documented in this encounter [facility] 04-02-2023 History of Present illness Narrative This note was created using [employer]. Subjective Justo Clark is a 73 year old male. HPI by patient: Justo clark is a 73 year old presenting to the office with the complaint of viral symptoms. Started approximately since December . Associated symptoms include ear pain and itchy eyes. Seen in the this office and given antibiotics, no better. Congestion in the morning. Denies fever, cough, eye drainage and pain. Covid Immunization Dates Overdue - Covid-19 Vaccine ( season) Overdue since 12/17/2022 03/26/2021 Imm Admin: COVID-19 original vaccine, full dose, monovalent (MODERNA) 06/08/2020 Outside Immunization: COVID-19 (PFIZER), MRNA, LNP-S, PF, 30 MCG/0.3 ML DOSE 05/21/2020 Outside Immunization: COVID-19 (PFIZER), MRNA, LNP-S, PF, 30 MCG/0.3 ML DOSE Sick contacts: none. Smoking history/second hand smoke: none. OTC not used. No antibiotic use in the last 60 days. ALLERGIES Morphine Diarrhea Comment:Upset stomach Family History Reviewed Including Cardiac Diseases, Psychiatric Diseases, & Substance Abuse Problem: Cancer Relation: Father Age of Onset: (Not Specified) Problem: Kidney Disease Relation: Father Age of Onset: (Not Specified) Problem: Amblyopia Relation: Mother Age of Onset: (Not Specified) Problem: Heart Relation: Mother Age of Onset: (Not Specified) Problem: Cataract Relation: Sister Age of Onset: (Not Specified) Problem: Heart Relation: Sister Age of Onset: (Not Specified) Problem: Kidney Disease Relation: Sister Age of Onset: (Not Specified) Problem: Cataract Relation: Brother Age of Onset: (Not Specified) Problem: Heart Relation: Brother Age of Onset: (Not Specified) Problem: Cancer Relation: Paternal Grandfather Age of Onset: (Not Specified) Problem: Heart Relation: Brother Age of Onset: (Not Specified) Problem: other (leukemia) Relation: Sister Age of Onset: (Not Specified) Social History Tobacco Use Smoking status: Former Types: Cigarettes Quit date: 1975 Years since quittin.9 Smokeless tobacco: Never Alcohol use: Yes Comment: occasional Drug use: No Active Ambulatory Problems Hypogonadism male Date Noted: 05/19/2011 PCO (posterior capsular opacification), right Date Noted: 12/27/2016 Refractive error Date Noted: 12/27/2016 Prostate cancer (HCC) Date Noted: 02/25/2018 Chronic systolic congestive heart failure (HCC) Date Noted: 02/25/2018 CKD (chronic kidney disease) Date Noted: 02/25/2018 Essential hypertension Date Noted: 02/25/2018 HLD (hyperlipidemia) Date Noted: 02/25/2018 Acute ischemic left MCA stroke (HCC) Date Noted: 02/26/2018 Resolved Ambulatory Problems Aphagia Date Noted: 02/25/2018 Past Medical History: No date: Aortic regurgitation No date: Arthritis No date: Cataracts, bilateral No date: Enlarged prostate No date: Erectile dysfunction No date: Esophageal spasm No date: GERD (gastroesophageal reflux disease) No date: Heart attack (HCC) No date: High blood pressure No date: MARSHALL (hard of hearing) No date: Numbness and tingling of both feet No date: Systolic congestive heart failure (HCC) Review of Systems Constitutional: Negative. HENT: Positive for ear pain. Eyes: Positive for itching. Negative for pain and redness. Respiratory: Negative. Cardiovascular: Negative. Gastrointestinal: Negative. Endocrine: Negative. Genitourinary: Negative. Musculoskeletal: Negative. Skin: Negative. Neurological: Negative. Objective BP 139/73 Pulse (!) 54 Temp (!) 39.3 C (102.8 F) Wt 111.2 kg (245 lb 3.2 oz) SpO2 95% BMI 31.48 kg/m Physical Exam Vitals reviewed. Constitutional: General: He is awake. He is not in acute distress. Appearance: He is not ill-appearing, toxic-appearing or diaphoretic. HENT: Right Ear: Tympanic membrane, ear canal and external ear normal. Left Ear: Tympanic membrane, ear canal and external ear normal. Eyes: Extraocular Movements: Extraocular movements intact. Conjunctiva/sclera: Conjunctivae normal. Cardiovascular: Rate and Rhythm: Normal rate and regular rhythm. Pulmonary: Effort: Pulmonary effort is normal. Breath sounds: Normal breath sounds. Lymphadenopathy: Head: Right side of head: No submandibular or tonsillar adenopathy. Left side of head: No submandibular or tonsillar adenopathy. Cervical: No cervical adenopathy. Neurological: Mental Status: He is alert. Psychiatric: Behavior: Behavior is cooperative. Assessment and Plan (H92.03) Acute otalgia, bilateral (primary encounter diagnosis) Plan: methylPREDNISolone (MEDROL DOSE-PACK) 4 mg Dose-Pack (R27.928) TMJ click Plan: methylPREDNISolone (MEDROL DOSE-PACK) 4 mg Dose-Pack (H57.9) Itchy eyes Plan: Olopatadine (PATADAY ONCE DAILY RELIEF) 0.2 % drop Bilateral TMs are healthy. Will treat tmj dysfunction with steroids, take with food. Pataday drops for itchy eyes. -OTC tylenol as directed on the bottle. -Call Tuesday for a follow up with primary care, likely needs more of a workup than what is offered in [facility] if no improvement. Consider ENT. -Signs that warrant an ER evaluation: Sudden change/worsening in condition, lethargy, signs of dehydration, fever greater than 102 F that is not responding to Tylenol or ibuprofen (Motrin, Advil), drooling, difficulty swallowing, difficulty breathing, shortness of breath, chest pain, evidence of airway compromise (tripod position, neck extension, retractions), seizures, changes in mental status, or other concerns. The patient will pursue further outpatient evaluation with the primary care physician or another Urgent Care/Express [facility] as outlined in the after visit summary. The patient is agreeable to this plan of care and follow-up instructions have been explained in detail. The patient has received these instructions in written format and have expressed an understanding of the after visit summary. Medical Decision Making: Level: 4 - Moderate I spent a total of 20 minutes on the date of the service which included preparing to see the patient, [id number] patient care, completing clinical documentation, obtaining and/or reviewing separately obtained history, performing a medically appropriate examination, counseling and educating the patient/family/caregiver, and ordering medications, tests, or procedures. documented in this encounter [facility] 02-28-2023 History of Present illness Narrative [facility] [address] [facility] [address] Dept: [phone] Dept Loc: [phone] Visit type: Established : 1950 Chief Complaint: No chief complaint on file. History of Present Illness: Justo Clark is a 73 y.o. male with history of hypertensive heart disease, LVEF 49% now normalized 58% , with previous history of normal coronary arteries and NSVT. In March/2022 he was having frequent palpitations, underwent an event monitor which was showing nonsustained VT episodes. He underwent an echo which showed a normalized LVEF, a nuclear stress test which was negative for ischemia. He also underwent a holter monitor in 06/10 which showed occasional atrial and ventricular ectopy. He also saw Dr Dee , with recommendation to continue betablocker therapy and no indication for antiarrythmic. He is doing well. He denies palpitations. He denies chest pain, no sob,orthopnea or pnd. No syncope or presyncope. Past Medical History: Past Medical History: Diagnosis Date Aortic regurgitation Aortic root dilatation (HCC) Arrhythmia 2018 Cancer (CMS/HCC) (HCC) prostate Cerebral artery occlusion with cerebral infarction (HCC) Chronic kidney disease Diabetes mellitus (HCC) Diverticulitis ED (erectile dysfunction) Esophageal reflux Esophageal spasm Heart failure with reduced ejection fraction ([facility]) ([facility]) History of colon polyps Hypercholesteremia Hypertension Lumbar disc disease Non-STEMI (non-ST elevated myocardial infarction) ([facility]) ([facility]) Nonischemic congestive cardiomyopathy ([facility]) ([facility]) 11/28/2016 hypertensive heart disease, EF 40% NSTEMI (non-ST elevated myocardial infarction) ([facility]) ([facility]) 11/28/2016 Unstable left ankle orthotic Dr. Chavarria Past Surgical History Past Surgical History: Procedure Laterality Date CARDIAC CATHETERIZATION 11/28/2016 CARDIAC PROCEDURE 11/28/2016 CHG US GUIDANCE NEEDLE PLACEMENT IMG S&I 2011 benign COLONOSCOPY 12/15/2015 COLONOSCOPY 09/2010 repeat 3-5yrs PROSTATE BIOPSY 07/2016 Benign PROSTATE BIOPSY 02/2017 SEPTOPLASTY 2004 SPINE SURGERY Lammy L4-5 HNP Family History Family History Problem Relation Name Age of Onset Other (08533) Mother 92yrs Old age Colon cancer Paternal Grandfather Drug abuse Sister Leah Cancer Sister Leah Arrhythmia Sister Leah Cancer Father 86yrs lung Cancer Sister Daksha leukemia Arrhythmia Sister Daksha Arrhythmia Brother Lamont Arrhythmia Brother Pablo Social History Social History Tobacco Use Smoking status: Former Packs/day: 1.00 Years: 10.00 Additional pack years: 0.00 Total pack years: 10.00 Types: Cigarettes Quit date: 10/31/1974 Years since quittin.3 Smokeless tobacco: Never Substance Use Topics Alcohol use: No Drug use: No Comment: Caffeine: tea once in awhile Allergies: Allergies Allergen Reactions Ciprofloxacin Other Other reaction(s): became sick Morphine Diarrhea GI issues, constipation Upset stomach Medications: Current Outpatient Medications: amLODIPine (Norvasc) 5 MG tablet, Take 1 tablet (5 mg) by mouth daily., Disp: 30 tablet, Rfl: 0 atorvastatin (Lipitor) 40 MG tablet, Take 1 tablet by mouth Nightly., Disp: , Rfl: cholecalciferol (Vitamin D-3) 50 MCG (2000 UT) capsule, Take 2,000 Units by mouth daily. Takes 3000 u, Disp: , Rfl: cyanocobalamin (Vitamin B-12) 1000 MCG tablet, Take 1,000 mcg by mouth in the morning., Disp: , Rfl: HYDROcodone-acetaminophen ([place]) 10-325 MG tablet, Take 1 tablet by mouth 3 times daily as needed., Disp: , Rfl: metoprolol succinate XL (Toprol-XL) 50 MG 24 hr tablet, Take 1 tablet by mouth in the morning., Disp: , Rfl: omeprazole (PriLOSEC) [address] capsule, Take 20 mg by mouth Daily as needed., Disp: , Rfl: rivaroxaban (Xarelto) 20 MG tablet, Take 20 mg by mouth daily., Disp: , Rfl: Review of Systems: Review of Systems Constitutional: Negative for activity change, chills, diaphoresis, fatigue and fever. HENT: Negative for nosebleeds and trouble swallowing. Ear pain: recent ear infection. Eyes: Negative for discharge and visual disturbance. Respiratory: Negative for apnea, cough, chest tightness, shortness of breath and wheezing. Cardiovascular: Negative for chest pain, palpitations and leg swelling. Gastrointestinal: Negative for abdominal distention, abdominal pain, blood in stool, diarrhea, nausea and vomiting. Endocrine: Negative for cold intolerance and heat intolerance. Genitourinary: Negative for hematuria. Musculoskeletal: Positive for back pain. Negative for gait problem (arthiritis/numbness in legs) and myalgias. Skin: Negative for color change and rash. Neurological: Negative for dizziness (Inner ear; Meniere's; occasionally), seizures, syncope, facial asymmetry, speech difficulty, weakness, light-headedness, numbness and headaches. Hematological: Does not bruise/bleed easily. Psychiatric/Behavioral: Positive for sleep disturbance (last few years). Negative for dysphoric mood. Physical Examination: Vitals: There were no vitals filed for this visit. There is no height or weight on file to calculate BMI. Physical Exam Constitutional: Appearance: Normal appearance. HENT: Head: Normocephalic. Mouth/Throat: Pharynx: No oropharyngeal exudate. Eyes: General: No scleral icterus. Right eye: No discharge. Left eye: No discharge. Cardiovascular: Rate and Rhythm: Normal rate and regular rhythm. Heart sounds: No murmur heard. No gallop. Pulmonary: Effort: No respiratory distress. Abdominal: General: There is no distension. Tenderness: There is no abdominal tenderness. Musculoskeletal: General: Normal range of motion. Cervical back: Normal range of motion. Right lower leg: No edema. Left lower leg: No edema. Skin: General: Skin is warm and dry. Neurological: Mental Status: He is alert and oriented to person, place, and time. Psychiatric: Mood and Affect: Mood normal. Behavior: Behavior normal. Laboratory Tests: Lab Results Component Value Date WBC 6.6 06/09/2022 HGB 12.7 (L) 06/09/2022 HCT 38.6 (L) 06/09/2022 MCV 89.1 06/09/2022 PLT 144 06/09/2022 Lab Results Component Value Date GLUCOSE 135 (H) 06/29/2022 CALCIUM 9.2 06/29/2022 NA 142 06/29/2022 K 5.8 (H) 06/29/2022 CO2 27 06/29/2022 CL 111 (H) 06/29/2022 BUN 34 (H) 06/29/2022 CREATININE 1.88 (H) 06/29/2022 @LASTCMP@ Lab Results Component Value Date CHOL 100 06/09/2022 Lab Results Component Value Date TRIG 164 (H) 06/09/2022 Lab Results Component Value Date HDL 30 (L) 06/09/2022 Lab Results Component Value Date LDLCALC 37 06/09/2022 NT PRO BNP Date Value Ref Range Status 05/25/2021 469 (H) 0 - 125 pg/mL Final 08/23/22 Labs at [facility]: Na+ 141 Potassium 4.5 Creatinine 1.9 Calcium 9.1 AST 20 ALT 21 HGB 12.7 Hematocrit 38.9 Chol 110 LDL 43.0 HDL 31 Triglyceride 208 Cardiac Tests: Last Echo stress test: 05/26/2021: SUMMARY: 1. Normal study after pharmacologic stress. 2. Stress echo: There is no evidence for stress-induced ischemia. 3. Stress ECG conclusions: There was no ischemic ST depression. 4. Left ventricle: Systolic function is by the biplane method of disks. The estimated ejection fraction is 48%. Last cardiac catheterization: 11/28/2016: SUMMARY: 1. LVEDP = 17 mmHg. 2. Left ventricle: The estimated ejection fraction is 40%. Moderate diffuse hypokinesis. 3. Right dominant coronary system Separate ostial of the LAD and the LCF from the left coronary sinus Normal coronary arteries. IMPRESSIONS: Findings consistent with hypertensive heart disease with moderate LV dysfunction. RECOMMENDATIONS: 1. Patient management should include aggressive risk factor modification. 2. Add optimal medical therapy of the patient's disease. 3. Emphasize BELLA inhibitors and appropriate beta blockers. Aorta Ultrasound at [facility] 05/20/22: IMPRESSION: No Aneurysm noted. Ectasia of the proximal segment of the aorta measuring 2.8 cm. Right iliac ectasia measuring 1.7 cm. Left iliac ectasia measuring 1.8 cm. RECOMMENDATIONS: Suggest follow-up study in one year. Last Event Monitor 04/07/2022: 1. The patient wore the recorder for 30 days and baseline recordings show sinus rhythm with PVCs and a 5-beat run of NSVT. 2. The patient called in 2 events for unknown symptoms. They showed sinus rhythm with PVCs. 3. There were 4 significant automatically triggered, asymptomatic events. They all showed sinus rhythm with frequent PVCs and 5-12 beat runs of NSVT of varying speed and morphology. 4. In conclusion, this event recorder shows that the patient may be symptomatic form frequent ventricular ectopy. Several asymptomatic episodes of NSVT are noted. Last Echo 07/06/2022: Left Ventricle: Left ventricle size is normal. Mildly increased wall thickness. Normal left ventricular systolic function. EF by 2D Simpsons Biplane is 56%. Global longitudinal strain is reduced. Normal wall motion. Normal diastolic function. Right Ventricle: Right ventricle is moderately dilated. Normal systolic function. TAPSE is normal. Aortic Valve: Trileaflet. Mildly thickened cusps. Cusp sclerosis. Mild (1+) regurgitation. Left Atrium: Left atrium size is normal (LA volume index 16-34 mL/m2). Interatrial Septum: No interatrial shunt visualized on color Doppler. Hypermobile interatrial septum. Patient states he has a known PFO. Right Atrium: Right atrium size is normal. Aorta: Normal sized ascending aorta. Mildly dilated sinuses of Valsalva. Sinuses of Valsalva diameter is 4.4 cm. Pericardium: No pericardial effusion. Last Stress Test 07/06/2022: No evidence of induced ischemia is identified on perfusion images following vasodilator stress. Left ventricular ejection fraction and wall motion appear normal on gated SPECT images. Stress ECG: No significant ST changes was noted. Conclusion: The stress test is non-diagnostic due to failure to achieve target heart rate. Last Holter Monitor 07/06/2022: The patient wore Holter monitor for 24 hours and the quality of recording was good. The rhythm was sinus averaging 60 bpm with a minimum of 47 and a maximum of 94. There were 72 ventricular ectopic beats. There were 107 supraventricular ectopic beats inclusive of a 4 beat run of nonsustained atrial tachycardia of 113 bpm. There were no symptoms noted. Summary: Holter monitor demonstrates sinus rhythm at normal rates with occasional atrial and ventricular ectopy. Assessment and Plan: 1. Hypertensive Heart Disease LVEF normalized 56%. Euvolemic on examination NYHA class I On Toprol XL and amlodipine with normal, well controlled BP 2. Nonsustained VT, PVCs () Asymptomatic now.C/w toprol XL Saw EP. No indication for antiarrythmic. 4. Aortic root aneurysm Aortic root measuring 4.4cm, normal sized ascending aorta. (06/2022) Repeat echo for ordered. Continue good BP control. RTC in 6 months or earlier if symptoms documented in this encounter [facility] 12-17-2022 Note HNO ID: [id number] Author: Kaitlyn Nair APRN.SERGE Service: ? Author Type: Nurse Practitioner Type: Progress Notes Filed: 12/17/2022 2:43 PM Note Text: This note was created using [employer]. Subjective Justo Clark is a 72 year old male. Patient presents with left ear discharge and pain since yesterday. Has history of bloody discharge from left ear 6 months ago Eyes for last week have been burning and watery Review of Systems Constitutional: Negative for chills and fever. HENT: Positive for ear discharge, ear pain and rhinorrhea. Negative for congestion and sore throat. Respiratory: Negative for cough, shortness of breath and wheezing. PAST MEDICAL HISTORY Diagnosis Date Aortic regurgitation Arthritis left knee and right knee and back Cataracts, bilateral Enlarged prostate Erectile dysfunction Esophageal spasm GERD (gastroesophageal reflux disease) Heart attack (HCC) NSTEMI High blood pressure MARSHALL (hard of hearing) Numbness and tingling of both feet Systolic congestive heart failure (HCC) Current Outpatient Medications on File Prior to Visit Medication Sig amLODIPine (NORVASC) 5 mg tablet Take 1 tablet by mouth once daily. Cholecalciferol, Vitamin D3, 50 mcg (2,000 unit) cap Take 2,000 Units by mouth. cyanocobalamin (VITAMIN B-12) 1,000 mcg tab Take by mouth every 24 hours. rivaroxaban (XARELTO) 15 mg tablet Take 15 mg by mouth. atorvastatin (LIPITOR) 40 mg tablet Take 1 tablet by mouth daily at bedtime. metoprolol succinate ER (TOPROL XL) 25 mg 24 hr tablet Take 50 mg by mouth once daily. hydrocodone-acetaminophen ES (VICODIN ES) 7.5-750 mg ORAL per tablet Take 1 tablet by mouth three times daily as needed. tobramycin (TOBREX) 0.3 % ophthalmic solution Use 1 Drop in the right eye every 4 hours. (Patient not taking: Reported on 04/03/2018) clopidogrel (PLAVIX) 75 mg tablet Take 1 tablet by mouth once daily. (Patient not taking: Reported on 12/17/2022) spironolactone (ALDACTONE) 12.5 mg tab Take 12.5 mg by mouth once daily. (Patient not taking: Reported on 12/17/2022) Docusate Sodium 100 mg tab Take 100 mg by mouth twice daily. (Patient not taking: Reported on 12/17/2022) sulfamethoxazole/trimethoprim (SMZ-TMP DS ORAL) Take 800 mg by mouth once daily. 800-160mg. For 14 days. (Patient not taking: Reported on 12/17/2022) lisinopril (ZESTRIL, PRINIVIL) 5 mg tablet Take 10 mg by mouth once daily. (Patient not taking: Reported on 12/17/2022) No current facility-administered medications on file prior to visit. Objective BP 147/83 Pulse (!) 55 Resp 16 Ht 188 cm (6' 2 ) Wt 109.3 kg (241 lb) SpO2 94% BMI 30.94 kg/m? Physical Exam Constitutional: General: He is not in acute distress. Appearance: Normal appearance. He is not toxic-appearing. HENT: Head: Normocephalic and atraumatic. Right Ear: Ear canal normal. A middle ear effusion is present. Left Ear: Drainage present. A middle ear effusion is present. Tympanic membrane is erythematous and bulging. Ears: Nose: Rhinorrhea present. No congestion. Mouth/Throat: Pharynx: No oropharyngeal exudate or posterior oropharyngeal erythema. Eyes: Conjunctiva/sclera: Conjunctivae normal. Cardiovascular: Rate and Rhythm: Normal rate and regular rhythm. Heart sounds: Normal heart sounds. Pulmonary: Effort: Pulmonary effort is normal. Breath sounds: Normal breath sounds. Lymphadenopathy: Cervical: No cervical adenopathy. Neurological: Mental Status: He is alert. Assessment and Plan ASSESSMENT/PLAN: 1. Acute otitis media, left - ICD9: 382.9, ICD10: H66.92 (primary diagnosis) - Will begin treatment with Amoxicillin for 7 days - Supportive care with plenty of fluids, rest, and analgesia prn. - Follow up in 3-5 days if symptoms persist or worsen. - AMOXICILLIN 875 MG TABLET 2. Seasonal allergic rhinitis, unspecified trigger - ICD9: 477.9, ICD10: J30.2 Advised antihistamine, nasal steroid and antihistamine eye drops Kaitlyn Nair APRN.CNP [facility] 12-17-2022 Instructions Kaitlyn Nair APRN.CNP - 12/17/2022 12:06 PM EDT OTITIS MEDIA GENERAL INFORMATION: Otitis media is an infection of the middle ear. The middle ear sits behind the eardrum. This infection may be caused by a virus or bacteria and often follows a cold. Children often have repeat ear infections. Otitis media is not contagious. INSTRUCTIONS: 1. An antibiotic has been prescribed. It should be taken exactly as prescribed. Do not stop the medicine even if the symptoms go away. 2. Fvqp-wbi-idrxfsw pain medication may be taken or other pain medication as prescribed by the doctor. 3. Nothing should be placed in the ear unless instructed by your doctor. 4. The patient may return to school/daycare or work when the temperature is normal (98.6 F or 37 C). 5. The patient should not swim while the ear is infected. CONTACT YOUR DOCTOR IF YOU OR YOUR CHILD: 1. Does not feel better within 36 hours. 2. Develops a temperature over 102E F (39E C). 3. Starts vomiting or has diarrhea. 4. Develops drainage from the affected ear. 5. Has any new problem that may be related to the medicine prescribed. RETURN TO THE ED IF: 1. You or your child has a severe headache or pain around the ear. 2. You or your child notice swelling around the ear. 3. You or your child has a seizure (convulsion), twitching of the facial muscles, or passes out. 4. You or your child is dizzy, has a stiff neck, or cannot walk or talk normally. 5. Your child becomes more irritable or listless (not interested in his or her surroundings, does not get soothed by you holding him or her). EXPRESS CARE PATIENT INFO ALLERGIC RHINITIS OVERVIEW Rhinitis refers to inflammation of the nasal passages. This inflammation can cause a variety of annoying symptoms, including sneezing, itching, nasal congestion, runny nose, and post-nasal drip (the sensation that mucus is draining from the sinuses down the back of the throat). Brief episodes of rhinitis are usually caused by respiratory tract infections with viruses (eg, the common cold). Chronic rhinitis is usually caused by allergies, but it can also occur from overuse of certain drugs, some medical conditions, and other unidentifiable factors. For many people, rhinitis is a lifelong condition that waxes and wanes over time. Fortunately, the symptoms of rhinitis can usually be controlled with a combination of environmental measures, medications, and immunotherapy (also called allergy shots). WHO GETS ALLERGIC RHINITIS? Allergic rhinitis, also known as hay fever, affects approximately 20 percent of people of all ages. The risk of developing allergic rhinitis is much higher in people with asthma or eczema and in people who have a family history of asthma or rhinitis. Allergic rhinitis can begin at any age, although most people first develop symptoms in childhood or young adulthood. The symptoms are often at their worst in children and in people in their 30s and 40s. However, the severity of symptoms tends to vary throughout life; many people experience periods when they have no symptoms at all. ALLERGIC RHINITIS CAUSES Allergic rhinitis is caused by a nasal reaction to small airborne particles called allergens (substances that provoke an allergic reaction). In some people, these particles also cause reactions in the lungs (asthma) and eyes (allergic conjunctivitis). The allergic reaction is characterized by activation of two types of inflammatory cells, called mast cells and basophils. These cells produce inflammatory substances, including histamine, that cause fluid to build up in the nasal tissues (congestion), itching, sneezing, and runny nose. Over several hours, these substances activate other inflammatory cells that can cause persistent symptoms. Seasonal versus perennial allergic rhinitis -- Allergic rhinitis can be seasonal (occurring during specific seasons) or perennial (occurring year round). The allergens that most commonly cause seasonal allergic rhinitis include pollens from trees, grasses, and weeds, as well as spores from fungi and molds. The allergens that most commonly cause perennial allergic rhinitis are dust mites, cockroaches, animal dander, and fungi or molds. Perennial allergic rhinitis tends to be more difficult to treat. ALLERGIC RHINITIS SYMPTOMS The symptoms of allergic rhinitis vary from person to person. Although the term rhinitis refers only to the nasal symptoms, many patients also experience problems with their eyes, throat, ears, and sleep, so it is helpful to consider the entire spectrum of symptoms. Nose: watery nasal discharge, blocked nasal passages, sneezing, nasal itching, post-nasal drip, loss of taste, facial pressure or pain Eyes: itchy, red eyes, feeling of grittiness in the eyes, swelling and blueness of the skin below the eyes (called allergic shiners) Throat and ears: sore throat, hoarse voice, congestion or popping of the ears, itching of the throat or ears Sleep: mouth breathing, frequent awakening, daytime fatigue, difficulty performing work When an allergen is present year round, the predominant symptoms include post-nasal drip, persistent nasal congestion, and poor-quality sleep. ALLERGIC RHINITIS DIAGNOSIS The diagnosis of allergic rhinitis is based upon a physical examination and the symptoms described above. Medical tests can confirm the diagnosis and identify the offending allergens. Identify allergens and other triggers -- It is often possible to identify the allergens and other triggers that provoke allergic rhinitis by: Recalling the factors that precede symptoms Noting the time at which symptoms begin Identifying potential allergens in a person's home, work, and school environments Skin tests may be useful for people whose symptoms are not well controlled with medications or in whom the offending allergen is not obvious. ALLERGIC RHINITIS TREATMENT The treatment of allergic rhinitis includes reducing exposure to allergens and other triggers, in combination with medication therapy. In most people, these measures effectively control the symptoms. Reduce exposure to triggers -- Some simple measures can reduce a person's exposure to allergens and triggers that provoke allergic rhinitis. Several different classes of drugs counter the inflammation that causes symptoms of allergic rhinitis. The severity of symptoms and personal preferences usually guide the selection of specific drugs. Nasal irrigation and saline sprays -- Rinsing the nose with a salt-water (saline) solution is called nasal irrigation or nasal lavage. Saline is also available in a standard nasal spray, although this is not as effective as using larger amounts of water in an irrigation. Nasal irrigation is particularly useful for treating drainage down the back of the throat, sneezing, nasal dryness, and congestion. The treatment helps by rinsing out allergens and irritants from the nose. Saline rinses also clean the nasal lining and can be used before applying sprays containing medications, to get a better effect from the medication. Nasal lavage with warmed saline can be performed as needed, once per day, or twice daily for increased symptoms. Nasal lavage carries few risks when performed correctly. Saline nasal sprays and irrigation kits can be purchased [id number]. Saline mixes can also be purchased or patients can make their own solution. A variety of devices, including bulb syringes, Neti pots, and bottle sprayers, may be used to perform nasal lavage; instructions for nasal lavage are provided in the table. At least 200 mL (about 3/4 cup) of fluid is recommended for each nostril. Nasal glucocorticoids -- Nasal glucocorticoids (steroids delivered by a nasal spray) are the first-line treatment for the symptoms of allergic rhinitis. These drugs have few side effects and dramatically relieve symptoms in most people. Studies have shown that nasal glucocorticoids are more effective than oral antihistamines for symptom relief. There are a number of nasal glucocorticoids available by prescription. Specific medications include fluticasone, mometasone, budesonide, flunisolide, triamcinolone, beclomethasone, fluticasone furoate, and ciclesonide. These drugs differ with regard to the frequency of doses, the spray device, and cost, but all are similarly effective for treating all the symptoms of allergic rhinitis. People with severe rhinitis may need to use a nasal decongestant for a few days before starting a nasal glucocorticoids to reduce nasal swelling, which will allow the nasal spray to reach more areas of the nasal passages. Some symptom relief may occur on the first day of therapy with nasal glucocorticoids, although their maximal effectiveness may not be noticeable for days to weeks. For this reason, nasal glucocorticoids are most effective when used regularly. Some people are able to use lower doses when symptoms are less severe. How to use a nasal spray -- Nasal sprays work best when they are used properly and the medication remains in the nose rather than draining down the back of the throat. If the nose is crusted or contains mucus, it should be cleaned with a saline nasal spray before a nasal spray that contains medication. The head should be positioned normally or with the chin slightly tucked. The spray should be directed away from the nasal septum (the cartilage that divides the two sides of the nose). The spray is dispensed and then sniffed in slightly to pull it into the higher parts of the nose. Sniffing too hard will result in the medicine draining down the throat, and should be avoided. Some people find that holding one nostril closed with a finger improves their ability to draw the spray into the upper nose. Medicine that drains into the throat may be spit out. Side effects -- The side effects of nasal steroids are mild and may include a mildly unpleasant smell or taste or drying of the nasal lining. In some people, nasal steroids cause irritation, crusting, and bleeding of the nasal septum, especially during the winter. These problems can be minimized by reducing the dose of the nasal steroid, applying a moisturizing nasal gel or spray to the septum before using the spray, or switching to a water-based (rather than an alcohol-based) spray. Studies suggest that nasal steroids are generally safe when used for many years. However, people who use these drugs for years should have periodic nasal examinations to check for rare side effects, such as nasal infection. Steroids taken as a pill or inhaled into the lungs can have side effects, especially when taken for long periods of time. However, the doses used in nasal steroids are low and are NOT associated with these side effects. However, clinicians usually recommend using the lowest effective dose. Antihistamines -- Antihistamines relieve the itching, sneezing, and runny nose of allergic rhinitis, but they do not relieve nasal congestion. Combined treatment with nasal steroids or decongestants may provide greater symptom relief than use of either alone. Oral medications -- Several antihistamines have been available for many years without a prescription, including brompheniramine (Dimetapp allergy , Nasahist B ), chlorpheniramine (Chlor-Trimeton ), diphenhydramine (Benadryl ), and clemastine (Tavist ). These drugs often cause sedation and should not be used before driving or operating machinery. Even if the person does not feel excessively drowsy, these drugs can have a sedating effect. Thus, patients should use caution. Less-sedating oral antihistamines include Loratadine (Claritin , Alavert ), desloratadine (Clarinex ), cetirizine (Zyrtec ), levocetirizine (Xyzal ), and fexofenadine (Paris ). Loratadine and cetirizine are available without a prescription. These drugs work as well as the sedating antihistamines for rhinitis, but they are less sedating and are available in long-acting formulas. However, they may be more expensive. Nasal sprays -- Azelastine (Astelin ) and olopatadine (Patanase ) are prescription nasal antihistamine sprays that can be used daily or when needed to relieve symptoms of post-nasal drip, congestion, and sneezing. These sprays start to work within minutes after use. The most common side effect with azelastine is a bad taste in the mouth immediately after use. This can be minimized by keeping the head tilted forward while spraying, to prevent the medicine from draining down the throat. Decongestants -- Decongestants (like pseudoephedrine or phenylephrine [Sudafed , Actifed , Drixoral ]) are often combined with antihistamines in oral, ilyt-ese-rwzgkrn allergy drugs. In the [place], pseudoephedrine has been used to make illegal drugs, which caused many companies to substitute phenylephrine for pseudoephedrine. However, phenylephrine is not effective for treating allergic rhinitis. Oral decongestants elevate blood pressure and are not appropriate for people with high blood pressure or certain cardiovascular conditions. Men with an enlarged prostate who have difficulty urinating may notice a worsening of this symptom when they take decongestants. Decongestants in the form of nasal sprays are also available, including oxymetazoline (Afrin ) and phenylephrine (Haroon-synephrine ). Nasal decongestant sprays should not be used for more than two to three days at a time because they may cause a type of rhinitis called rhinitis medicamentosa, which causes the nose to be congested constantly UNLESS the medication is used repeatedly. This condition can be difficult to treat. To avoid it, do not use decongestant sprays for more than 3 days. Cromolyn sodium -- Cromolyn sodium (Nasalcrom ) prevents the symptoms of allergic rhinitis by interfering with the ability of allergy cells to release natural chemicals that cause inflammation. This drug is available as an xbcg-dbm-lfwjeko nasal spray that must be used three to four times per day, preferably before symptoms have begun, to effectively prevent the symptoms of allergic rhinitis. Allergy shots -- Allergy shots, also known as allergen immunotherapy, are injections given to reduce a person's sensitivity to allergens. Allergy shots are only available for common allergens, such as pollens, cat and dog dander, dust mites, and molds. These shots contain solutions of the allergens to which a specific person is allergic, and are made up individually for each person. The process of immunotherapy changes the person's immune response to the allergens over time. As a result, being exposed to the allergen causes fewer or even no symptoms. Immunotherapy can help many people with allergic rhinitis. In children, immunotherapy can help prevent developing allergic asthma later in life. However, immunotherapy is relatively time-consuming and is often reserved for people who have a poor response to medication, or want to avoid taking medications long-term. Immunotherapy can be expensive, but many insurance plans cover the therapy because long-term use of allergy medications is also costly. Immunotherapy is usually started by an nursing director. Treatment begins with several months of weekly injections of gradually increasing doses, followed by monthly maintenance injections. The maintenance injections can be given by a primary care provider. Immunotherapy is usually a long-term therapy, and the benefits of this therapy may lessen when it is discontinued. However, one study in people with allergies to grass pollen found that the benefits of three to four years of immunotherapy persisted when the injections were stopped [2]. Immunotherapy injections carry a small risk of a severe allergic reaction. These reactions occur with a frequency of 6 of every 10,000 injections. The symptoms usually begin within 30 minutes of the injection. For this reason, patients are required to remain in the office after routine injections so that such a reaction could be quickly treated. Because drugs called beta-blockers may interfere with the ability to treat these reactions, people who take beta-blockers are often advised to avoid immunotherapy. Other treatments -- Other drugs may be recommended for some people with allergic rhinitis. Ipratropium -- Nasal atropine is effective for the treatment of severe runny nose. This drug, available as ipratropium bromide (Atrovent ), is not generally recommended for people with glaucoma or men with an enlarged prostate. Leukotriene modifiers -- Release of substances called leukotrienes may contribute to the symptoms of allergic rhinitis. Drugs that block the actions of leukotrienes, called leukotriene modifiers, can be very useful in patients with asthma and allergic rhinitis. However, nasal steroids are more effective than leukotriene modifiers for treating allergic rhinitis; thus, leukotriene modifiers are generally reserved for patients who cannot tolerate nasal sprays (due to nose bleeds) or azelastine. documented in this encounter [facility] 12-17-2022 History of Present illness Narrative Images from the original note were not included. This note was created using [employer]im[employer]. Subjective Justo Clark is a 72 year old male. Patient presents with left ear discharge and pain since yesterday. Has history of bloody discharge from left ear 6 months ago Eyes for last week have been burning and watery Review of Systems Constitutional: Negative for chills and fever. HENT: Positive for ear discharge, ear pain and rhinorrhea. Negative for congestion and sore throat. Respiratory: Negative for cough, shortness of breath and wheezing. PAST MEDICAL HISTORY Diagnosis Date Aortic regurgitation Arthritis left knee and right knee and back Cataracts, bilateral Enlarged prostate Erectile dysfunction Esophageal spasm GERD (gastroesophageal reflux disease) Heart attack (HCC) NSTEMI High blood pressure [place] (hard of hearing) Numbness and tingling of both feet Systolic congestive heart failure (HCC) Current Outpatient Medications on File Prior to Visit Medication Sig amLODIPine (NORVASC) 5 mg tablet Take 1 tablet by mouth once daily. Cholecalciferol, Vitamin D3, 50 mcg (2,000 unit) cap Take 2,000 Units by mouth. cyanocobalamin (VITAMIN B-12) 1,000 mcg tab Take by mouth every 24 hours. rivaroxaban (XARELTO) 15 mg tablet Take 15 mg by mouth. atorvastatin (LIPITOR) 40 mg tablet Take 1 tablet by mouth daily at bedtime. metoprolol succinate ER (TOPROL XL) 25 mg 24 hr tablet Take 50 mg by mouth once daily. hydrocodone-acetaminophen ES (VICODIN ES) 7.5-750 mg ORAL per tablet Take 1 tablet by mouth three times daily as needed. tobramycin (TOBREX) 0.3 % ophthalmic solution Use 1 Drop in the right eye every 4 hours. (Patient not taking: Reported on 04/03/2018) clopidogrel (PLAVIX) 75 mg tablet Take 1 tablet by mouth once daily. (Patient not taking: Reported on 12/17/2022) spironolactone (ALDACTONE) 12.5 mg tab Take 12.5 mg by mouth once daily. (Patient not taking: Reported on 12/17/2022) Docusate Sodium 100 mg tab Take 100 mg by mouth twice daily. (Patient not taking: Reported on 12/17/2022) sulfamethoxazole/trimethoprim (SMZ-TMP DS ORAL) Take 800 mg by mouth once daily. 800-160mg. For 14 days. (Patient not taking: Reported on 12/17/2022) lisinopril (ZESTRIL, PRINIVIL) 5 mg tablet Take 10 mg by mouth once daily. (Patient not taking: Reported on 12/17/2022) No current facility-administered medications on file prior to visit. Objective BP 147/83 Pulse (!) 55 Resp 16 Ht 188 cm (6' 2 ) Wt 109.3 kg (241 lb) SpO2 94% BMI 30.94 kg/m Physical Exam Constitutional: General: He is not in acute distress. Appearance: Normal appearance. He is not toxic-appearing. HENT: Head: Normocephalic and atraumatic. Right Ear: Ear canal normal. A middle ear effusion is present. Left Ear: Drainage present. A middle ear effusion is present. Tympanic membrane is erythematous and bulging. Ears: Nose: Rhinorrhea present. No congestion. Mouth/Throat: Pharynx: No oropharyngeal exudate or posterior oropharyngeal erythema. Eyes: Conjunctiva/sclera: Conjunctivae normal. Cardiovascular: Rate and Rhythm: Normal rate and regular rhythm. Heart sounds: Normal heart sounds. Pulmonary: Effort: Pulmonary effort is normal. Breath sounds: Normal breath sounds. Lymphadenopathy: Cervical: No cervical adenopathy. Neurological: Mental Status: He is alert. Assessment and Plan ASSESSMENT/PLAN: 1. Acute otitis media, left - ICD9: 382.9, ICD10: H66.92 (primary diagnosis) - Will begin treatment with Amoxicillin for 7 days - Supportive care with plenty of fluids, rest, and analgesia prn. - Follow up in 3-5 days if symptoms persist or worsen. - AMOXICILLIN 875 MG TABLET 2. Seasonal allergic rhinitis, unspecified trigger - ICD9: 477.9, ICD10: J30.2 Advised antihistamine, nasal steroid and antihistamine eye drops Kaitlyn Nair APRN.[employer] documented in this encounter [facility] 08-30-2022 History of Present illness Narrative [facility] [address] [facility] [address] Dept: [phone] Dept Loc: [phone] Visit type: Established : 1950 Chief Complaint: Chief Complaint Patient presents with 3 Month Follow Up History of Present Illness: Justo Clark is a 72 y.o. male with history of hypertensive heart disease, LVEF 49% now normalized 58% , with previous history of normal coronary arteries. In March he was having frequent palpitations, underwent an event monitor which was showing nonsustained VT episodes. He underwent an echo which showed a normalized LVEF, a nuclear stress test which was negative for ischemia. He also underwent a holter monitor in 06/10 which showed occasional atrial and ventricular ectopy. He also saw Dr Dee , with recommendation to continue betablocker therapy and no indication for antiarrythmic. He is doing well. Has very occasional palpitations now, non since last 3 weeks. He denies chest pain, no sob,orthopnea or pnd. No syncope or presyncope. Past Medical History: Past Medical History: Diagnosis Date Aortic regurgitation Aortic root dilatation ([facility]) Arrhythmia 2018 Cancer ([facility]) ([facility]) prostate Cerebral artery occlusion with cerebral infarction ([facility]) Chronic kidney disease Diabetes mellitus ([facility]) Diverticulitis ED (erectile dysfunction) Esophageal reflux Esophageal spasm Heart failure with reduced ejection fraction [facility] [facility] ([facility]) History of colon polyps Hypercholesteremia Hypertension Lumbar disc disease Non-STEMI (non-ST elevated myocardial infarction) ([facility]) ([facility]) Nonischemic congestive cardiomyopathy ([facility]) ([facility]) 11/28/2016 hypertensive heart disease, EF 40% NSTEMI (non-ST elevated myocardial infarction) ([facility]) ([facility]) 11/28/2016 Unstable left ankle orthotic Dr. Chavarria Past Surgical History Past Surgical History: Procedure Laterality Date CARDIAC CATHETERIZATION 11/28/2016 CARDIAC PROCEDURE 11/28/2016 CHG US GUIDANCE NEEDLE PLACEMENT IMG S&I 2011 benign COLONOSCOPY 12/15/2015 COLONOSCOPY 09/2010 repeat 3-5yrs PROSTATE BIOPSY 07/2016 Benign PROSTATE BIOPSY 02/2017 SEPTOPLASTY 2003 SPINE SURGERY Lammy L4-5 HNP Family History Family History Problem Relation Name Age of Onset Other (62230) Mother 92yrs Old age Colon cancer Paternal Grandfather Drug abuse Sister Leah Cancer Sister Leah Arrhythmia Sister Leah Cancer Father 86yrs lung Cancer Sister Daksha leukemia Arrhythmia Sister Daksha Arrhythmia Brother Lamont Arrhythmia Brother Pablo Social History Social History Tobacco Use Smoking status: Former Packs/day: 1.00 Years: 10.00 Pack years: 10.00 Types: Cigarettes Quit date: 10/31/1974 Years since quittin.8 Smokeless tobacco: Never Substance Use Topics Alcohol use: No Drug use: No Comment: Caffeine: tea once in awhile Allergies: Allergies Allergen Reactions Ciprofloxacin Other Other reaction(s): became sick Morphine Diarrhea GI issues, constipation Upset stomach Medications: Current Outpatient Medications: amLODIPine (Norvasc) 5 MG tablet, Take 1 tablet (5 mg) by mouth daily., Disp: 30 tablet, Rfl: 0 atorvastatin (Lipitor) 40 MG tablet, Take 1 tablet by mouth Nightly., Disp: , Rfl: cholecalciferol (Vitamin D-3) 50 MCG (2000 UT) capsule, Take 2,000 Units by mouth daily. Takes 3000 u, Disp: , Rfl: cyanocobalamin (Vitamin B-12) 1000 MCG tablet, Take 1,000 mcg by mouth in the morning., Disp: , Rfl: HYDROcodone-acetaminophen ([place]) 10-325 MG tablet, Take 1 tablet by mouth 3 times daily as needed., Disp: , Rfl: metoprolol succinate XL (Toprol-XL) 50 MG 24 hr tablet, Take 1 tablet by mouth in the morning., Disp: , Rfl: omeprazole (PriLOSEC) [address] capsule, Take 20 mg by mouth Daily as needed., Disp: , Rfl: rivaroxaban (Xarelto) 20 MG tablet, Take 20 mg by mouth daily., Disp: , Rfl: furosemide (Lasix) 40 MG tablet, Take 1 tablet (40 mg) by mouth Once for 1 dose., Disp: 5 tablet, Rfl: 0 Review of Systems: Review of Systems Constitutional: Negative for activity change, chills, diaphoresis, fatigue and fever. HENT: Negative for nosebleeds and trouble swallowing. Eyes: Negative for discharge and visual disturbance. Respiratory: Negative for apnea, cough, chest tightness, shortness of breath and wheezing. Cardiovascular: Negative for chest pain, palpitations (once in awhile ; been 3 weeks) and leg swelling. Gastrointestinal: Negative for abdominal distention, abdominal pain, blood in stool, diarrhea, nausea and vomiting. Endocrine: Negative for cold intolerance and heat intolerance. Genitourinary: Negative for hematuria. Musculoskeletal: Positive for back pain. Negative for gait problem (arthiritis/numbness in legs) and myalgias. Skin: Negative for color change and rash. Neurological: Negative for dizziness (Inner ear), seizures, syncope, facial asymmetry, speech difficulty, weakness, light-headedness, numbness and headaches. Hematological: Does not bruise/bleed easily. Psychiatric/Behavioral: Negative for dysphoric mood. Physical Examination: Vitals: Vitals: 08/30/22 1139 BP: 130/80 BP Location: Right arm Patient Position: Sitting BP Cuff Size: Adult Pulse: 72 Resp: 15 Weight: 240 lb (109 kg) Height: 6' 2 (1.88 m) Body mass index is 30.81 kg/m . Physical Exam Constitutional: Appearance: Normal appearance. HENT: Head: Normocephalic. Mouth/Throat: Pharynx: No oropharyngeal exudate. Eyes: General: No scleral icterus. Right eye: No discharge. Left eye: No discharge. Cardiovascular: Rate and Rhythm: Normal rate and regular rhythm. Heart sounds: No murmur heard. No gallop. Pulmonary: Effort: No respiratory distress. Abdominal: General: There is no distension. Tenderness: There is no abdominal tenderness. Musculoskeletal: General: Normal range of motion. Cervical back: Normal range of motion. Right lower leg: No edema. Left lower leg: No edema. Skin: General: Skin is warm and dry. Neurological: Mental Status: He is alert and oriented to person, place, and time. Psychiatric: Mood and Affect: Mood normal. Behavior: Behavior normal. Laboratory Tests: Lab Results Component Value Date WBC 6.6 06/09/2022 HGB 12.7 (L) 06/09/2022 HCT 38.6 (L) 06/09/2022 MCV 89.1 06/09/2022 PLT 144 06/09/2022 Lab Results Component Value Date GLUCOSE 135 (H) 06/29/2022 CALCIUM 9.2 06/29/2022 NA 142 06/29/2022 K 5.8 (H) 06/29/2022 CO2 27 06/29/2022 CL 111 (H) 06/29/2022 BUN 34 (H) 06/29/2022 CREATININE 1.88 (H) 06/29/2022 @LASTCMP@ Lab Results Component Value Date CHOL 100 06/09/2022 Lab Results Component Value Date TRIG 164 (H) 06/09/2022 Lab Results Component Value Date HDL 30 (L) 06/09/2022 Lab Results Component Value Date LDLCALC 37 06/09/2022 NT PRO BNP Date Value Ref Range Status 05/25/2021 469 (H) 0 - 125 pg/mL Final 08/23/22 Labs at [facility]: Na+ 141 Potassium 4.5 Creatinine 1.9 Calcium 9.1 AST 20 ALT 21 HGB 12.7 Hematocrit 38.9 Chol 110 LDL 43.0 HDL 31 Triglyceride 208 Cardiac Tests: Last Echo stress test: 05/26/2021: SUMMARY: 1. Normal study after pharmacologic stress. 2. Stress echo: There is no evidence for stress-induced ischemia. 3. Stress ECG conclusions: There was no ischemic ST depression. 4. Left ventricle: Systolic function is by the biplane method of disks. The estimated ejection fraction is 48%. Last cardiac catheterization: 11/28/2016: SUMMARY: 1. LVEDP = 17 mmHg. 2. Left ventricle: The estimated ejection fraction is 40%. Moderate diffuse hypokinesis. 3. Right dominant coronary system Separate ostial of the LAD and the LCF from the left coronary sinus Normal coronary arteries. IMPRESSIONS: Findings consistent with hypertensive heart disease with moderate LV dysfunction. RECOMMENDATIONS: 1. Patient management should include aggressive risk factor modification. 2. Add optimal medical therapy of the patient's disease. 3. Emphasize BELLA inhibitors and appropriate beta blockers. Aorta Ultrasound at [facility] 05/20/22: IMPRESSION: No Aneurysm noted. Ectasia of the proximal segment of the aorta measuring 2.8 cm. Right iliac ectasia measuring 1.7 cm. Left iliac ectasia measuring 1.8 cm. RECOMMENDATIONS: Suggest follow-up study in one year. Last Event Monitor 04/07/2022: 1. The patient wore the recorder for 30 days and baseline recordings show sinus rhythm with PVCs and a 5-beat run of NSVT. 2. The patient called in 2 events for unknown symptoms. They showed sinus rhythm with PVCs. 3. There were 4 significant automatically triggered, asymptomatic events. They all showed sinus rhythm with frequent PVCs and 5-12 beat runs of NSVT of varying speed and morphology. 4. In conclusion, this event recorder shows that the patient may be symptomatic form frequent ventricular ectopy. Several asymptomatic episodes of NSVT are noted. Last Echo 07/06/2022: Left Ventricle: Left ventricle size is normal. Mildly increased wall thickness. Normal left ventricular systolic function. EF by 2D Simpsons Biplane is 56%. Global longitudinal strain is reduced. Normal wall motion. Normal diastolic function. Right Ventricle: Right ventricle is moderately dilated. Normal systolic function. TAPSE is normal. Aortic Valve: Trileaflet. Mildly thickened cusps. Cusp sclerosis. Mild (1+) regurgitation. Left Atrium: Left atrium size is normal (LA volume index 16-34 mL/m2). Interatrial Septum: No interatrial shunt visualized on color Doppler. Hypermobile interatrial septum. Patient states he has a known PFO. Right Atrium: Right atrium size is normal. Aorta: Normal sized ascending aorta. Mildly dilated sinuses of Valsalva. Sinuses of Valsalva diameter is 4.4 cm. Pericardium: No pericardial effusion. Last Stress Test 07/06/2022: No evidence of induced ischemia is identified on perfusion images following vasodilator stress. Left ventricular ejection fraction and wall motion appear normal on gated SPECT images. Stress ECG: No significant ST changes was noted. Conclusion: The stress test is non-diagnostic due to failure to achieve target heart rate. Last Holter Monitor 07/06/2022: The patient wore Holter monitor for 24 hours and the quality of recording was good. The rhythm was sinus averaging 60 bpm with a minimum of 47 and a maximum of 94. There were 72 ventricular ectopic beats. There were 107 supraventricular ectopic beats inclusive of a 4 beat run of nonsustained atrial tachycardia of 113 bpm. There were no symptoms noted. Summary: Holter monitor demonstrates sinus rhythm at normal rates with occasional atrial and ventricular ectopy. Assessment and Plan: 1. Hypertensive Heart Disease LVEF normalized 56%. Euvolemic on examination NYHA class I On Toprol XL . His lisinopril was discontinue because of hyperkalemia. He is on amlodipine instead. 2. Nonsustained VT, PVCs Stress test negative for ischemia C/w toprol XL Saw Dr Dee for EP. No indication for antiarrythmic. Palpitations near resolved 4. Aortic root measuring 4.4cm, normal sized ascending aorta. Repeat echo in 1 year . (07/09) RTC in 6 months or earlier if symptoms documented in this encounter [facility] 07-20-2022 History of Present illness Narrative [facility] Cardiology Note Chief Complaint: Chief Complaint Patient presents with New Patient History of Present Illness: Justo Clark is a 72 y.o. male presenting for evaluation of ventricular ectopy. He is a very pleasant gentleman with history of prostate cancer and CVA who since 2018 has had a sense of intermittent not much palpitation but the need to take in a breath. There is no lightheadedness presyncope or syncope. The sensations are not present with activity or exercise and are worse at night or while he is at rest. Event monitor is reviewed demonstrating occasional episodes of nonsustained ventricular tachycardia 3-5 beats. Holter monitor was performed and 72 PVCs were seen. His symptoms are intermittent and but for the sensation of needing to take a breath do not bother him very much at all. Past Medical History: Past Medical History: Diagnosis Date Aortic regurgitation Aortic root dilatation ([facility]) ([facility]) Cerebral artery occlusion with cerebral infarction ([facility]) ([facility]) Chronic kidney disease Diverticulitis ED (erectile dysfunction) Esophageal reflux Esophageal spasm Heart failure with reduced ejection fraction ([facility]) ([facility]) History of colon polyps Hypercholesteremia Hypertension Lumbar disc disease Non-STEMI (non-ST elevated myocardial infarction) ([facility] ([facility] Nonischemic congestive cardiomyopathy ([facility]) ([facility]) 11/28/2016 hypertensive heart disease, EF 40% NSTEMI (non-ST elevated myocardial infarction) ([facility]) ([facility]) 11/28/2016 Unstable left ankle orthotic Dr. Chavarria Past Surgical History Past Surgical History: Procedure Laterality Date CARDIAC CATHETERIZATION 11/28/2016 CARDIAC PROCEDURE 11/28/2016 CHG US GUIDANCE NEEDLE PLACEMENT IMG S&I 2011 benign COLONOSCOPY 12/15/2015 COLONOSCOPY 09/2010 repeat 3-5yrs PROSTATE BIOPSY 07/2016 Benign PROSTATE BIOPSY 02/2017 SEPTOPLASTY 2004 SPINE SURGERY Lammy L4-5 HNP Family History Family History Problem Relation Name Age of Onset Other (76582) Mother 92yrs Old age Colon cancer Paternal Grandfather Drug abuse Sister Leah Cancer Sister Leah Cancer Father 86yrs lung Cancer Sister Daksha leukemia Social History Social History Tobacco Use Smoking status: Former Types: Cigarettes Quit date: 10/31/1974 Years since quittin.7 Smokeless tobacco: Never Substance Use Topics Alcohol use: No Drug use: No Comment: Caffeine: tea once in awhile Allergies: Allergies Allergen Reactions Ciprofloxacin Other Other reaction(s): became sick Morphine Diarrhea GI issues, constipation Upset stomach Medications: Current Outpatient Medications: amLODIPine (Norvasc) 5 MG tablet, Take 1 tablet (5 mg) by mouth daily., Disp: 30 tablet, Rfl: 0 atorvastatin (Lipitor) 40 MG tablet, Take 1 tablet by mouth Nightly., Disp: , Rfl: cholecalciferol (Vitamin D-3) 50 MCG (2000 UT) capsule, Take 2,000 Units by mouth daily. Takes 3000 u, Disp: , Rfl: cyanocobalamin (Vitamin B-12) 1000 MCG tablet, Take 1,000 mcg by mouth in the morning., Disp: , Rfl: HYDROcodone-acetaminophen ([place]) 10-325 MG tablet, Take 1 tablet by mouth 3 times daily as needed., Disp: , Rfl: metoprolol succinate XL (Toprol-XL) 50 MG 24 hr tablet, Take 1 tablet by mouth in the morning., Disp: , Rfl: omeprazole (PriLOSEC) [address] capsule, Take 20 mg by mouth Daily as needed., Disp: , Rfl: rivaroxaban (Xarelto) 15 MG tablet, Take 20 mg by mouth daily., Disp: , Rfl: furosemide (Lasix) 40 MG tablet, Take 1 tablet (40 mg) by mouth Once for 1 dose. (Patient not taking: Reported on 07/20/2022), Disp: 5 tablet, Rfl: 0 psyllium (Metamucil) 58.6 % powder, Take 3 g of fiber by mouth daily., Disp: , Rfl: Review of Systems: Review of Systems Constitutional: Negative. Negative for activity change, chills, diaphoresis, fatigue and fever. HENT: Negative. Negative for nosebleeds and trouble swallowing. Eyes: Negative. Negative for discharge and visual disturbance. Respiratory: Positive for shortness of breath. Negative for apnea, cough, chest tightness and wheezing. Cardiovascular: Positive for palpitations. Negative for chest pain and leg swelling. Gastrointestinal: Negative. Negative for abdominal distention, abdominal pain, blood in stool, diarrhea, nausea and vomiting. Endocrine: Negative. Negative for cold intolerance and heat intolerance. Genitourinary: Negative. Negative for hematuria. Musculoskeletal: Negative. Negative for gait problem and myalgias. Skin: Negative. Negative for color change and rash. Neurological: Positive for dizziness. Negative for seizures, syncope, facial asymmetry, speech difficulty, weakness, light-headedness, numbness and headaches. Hematological: Negative. Does not bruise/bleed easily. Psychiatric/Behavioral: Negative. Negative for dysphoric mood. Physical Examination: Vitals: Vitals: 07/20/22 1103 BP: (!) 158/80 BP Location: Left arm Patient Position: Sitting BP Cuff Size: Adult SpO2: 91% Weight: 237 lb 9.6 oz (108 kg) Height: 6' 2 (1.88 m) Body mass index is 30.51 kg/m . Physical Exam Vitals reviewed. Constitutional: Appearance: Normal appearance. HENT: Head: Normocephalic. Right Ear: External ear normal. Left Ear: External ear normal. Nose: Nose normal. Mouth/Throat: Mouth: Mucous membranes are moist. Eyes: Pupils: Pupils are equal, round, and reactive to light. Cardiovascular: Rate and Rhythm: Normal rate and regular rhythm. Heart sounds: No murmur heard. Pulmonary: Breath sounds: No wheezing or rales. Musculoskeletal: General: Normal range of motion. Right lower leg: No edema. Left lower leg: No edema. Skin: General: Skin is warm and dry. Coloration: Skin is not jaundiced. Neurological: General: No focal deficit present. Mental Status: He is alert. Motor: No weakness. Gait: Gait normal. Psychiatric: Mood and Affect: Mood normal. Behavior: Behavior normal. Thought Content: Thought content normal. Judgment: Judgment normal. Laboratory Tests: Lab Results Component Value Date WBC 6.6 06/09/2022 HGB 12.7 (L) 06/09/2022 HCT 38.6 (L) 06/09/2022 MCV 89.1 06/09/2022 PLT 144 06/09/2022 Lab Results Component Value Date GLUCOSE 135 (H) 06/29/2022 CALCIUM 9.2 06/29/2022 NA 142 06/29/2022 K 5.8 (H) 06/29/2022 CO2 27 06/29/2022 CL 111 (H) 06/29/2022 BUN 34 (H) 06/29/2022 CREATININE 1.88 (H) 06/29/2022 @LASTCMP@ Lab Results Component Value Date CHOL 100 06/09/2022 Lab Results Component Value Date TRIG 164 (H) 06/09/2022 Lab Results Component Value Date HDL 30 (L) 06/09/2022 Lab Results Component Value Date LDLCALC 37 06/09/2022 Assessment and Plan: Ventricular ectopy: PVCs and short runs of nonsustained ventricular tachycardia. In 5 minutes of palpation auscultation I did not detect any PVCs. His Holter monitor demonstrated only 72. His symptoms and the studies suggest at this point a low burden. His ejection fraction is normal and nuclear stress test unremarkable without ischemia and demonstrates a normal ejection fraction. At this point I would simply maintain the beta-blockade. We discussed antiarrhythmic drug. I would not recommend and he is not ready currently for this more aggressive approach. Given his low burden he is not an ablation candidate. I would see him on an as-needed basis. All questions were answered. documented in this encounter [facility] 07-14-2022 Telephone encounter Note Patient called and asked if order could be placed for BMP. He would like this order to be faxed to [facility] [place] [address] Road phone [phone] and fax [phone] [facility] 07-14-2022 Miscellaneous Notes Patient called and asked if order could be placed for BMP. He would like this order to be faxed to [facility] [place] [address] Road phone [phone] and fax [phone] documented in this encounter [facility] 07-06-2022 Note Spoke with patient r egarding pre procedure instructions for nuclear stress test on 07-06 at 11:45, including no caffeine for 12 hours prior to test and NPO 4 hours prior. He verbalized understanding. [facility] 05-26-2021 Note Clinical Decision Un it Discharge Note Time patient placed in observation status: 05/25/2021 1445 Reason patient placed into observation status: chest pain Hospital Course - workup/treatment rendered and outcome of workup/treatment: Justo presented to the emergency department with chief complaint of chest pain, patient has history of NSTEMI, heart failure and aortic regurgitation, echo 2 years ago showed EF of 60%. Patient is her hypertension on lisinopril and metoprolol, hyperlipidemia on Lipitor, chronic kidney disease and history of CVA in 2018 on daily Xarelto. At approximately 8 AM yesterday morning experienced severe midsternal pressure worse with taking a deep breath in, pressure was 3 out of 10 pain. Patient not think exertion made any difference. Did not take any medications to relieve his pain. In the emergency department, patient negative troponin, creatinine is 1.63, BUN 27, screening D-dimer was negative. No leukocytosis. Slight anemia with a hemoglobin of 12. Chest x-ray showed concern for some vascular congestion with a BNP of 469. Patient not on diuretic because of his kidney disease. Patient has been spironolactone but it was affecting his kidneys so he has not been on it since. Patient's chest pain has since resolved, patient was not experiencing chest pain today on 05/26/2021. Patient received his daily medications this morning, including his beta-raymon, which delayed his stress test. Patient did not receive a stress test until 3 PM, was not read until 4:30 PM. At that time, cardiology was unavailable for consultation, stress test showed no evidence of ischemic changes, but there is a slightly reduced ejection fraction from 60 to 48%. Spoke with Dr. Virgen, who said that Dr. Herman would see the patient in the morning unless emergent. Spoke with [facility] to discuss admitting the patient because it will be over 2 midnights for formal admission, admit with Dr. Salinas he states that given the reduced ejection fraction to 48%, that he is optimized on all of his medications at this time, states he already has a lump roller Dr. Anderson, and patient can follow-up outpatient, states that he feels comfortable discharging patient without a cardiology consult, does not see the need to transfer care at this time. Patient's troponins have been normal throughout his stay here in the emergency department, vital signs have been normal. I find this disposition reasonable, patient also wants to leave and does not want to stay. Patient was instructed that he needs to follow-up with his lump roller within the next week, patient expressed understanding, will be discharged at this time. The patient was informed that although the workup on this visit is negative, they still need close outpatient follow up with their Primary Care Physician and Cardiology for continued and further evaluation. The patient was also told that should new, worsening, or changing symptoms develop, they need to return to the ED for evaluation. The patient verbalizes understanding of our discussion and agrees with the discussed plan. Discharge Diagnosis: Focused Physical Exam: Nursing Notes Reviewed VITAL SIGNS: BP (!) 149/69 Pulse 65 Temp 98.1 ?F (36.7 ?C) Resp 18 Ht 6' 1 (1.854 m) Wt 258 lb (117 kg) SpO2 97% BMI 34.04 kg/m? GENERAL: The patient appears nourished and normally developed. Vital signs as documented. EYES: Head exam is unremarkable. No scleral icterus or orbital trauma noted. HEENT: Mucous membranes moist. Nares patent without copious rhinorrhea. No enlarged lymphadenopathy. LUNGS: Lungs are clear to auscultation, without any respiratory distress. CARDIAC: Rhythm is regular. No dysrythmias or murmurs. ABDOMEN: Nontender with no obvious masses, and no peritoneal signs. EXTREMITIES: Non edematous, with no obvious deformities. SKIN: Good color, with no significant rashes. No pallor. NEURO: No obvious neurological deficits, normal sensation and strength bilaterally. Labs: Results for orders placed or performed during the hospital encounter of 05/25/21 CBC Auto Differential Result Value Ref Range WBC 6.0 3.6 - 10.7 10*3/uL RBC 4.19 (L) 4.40 - 5.90 10*6/uL Hemoglobin 12.0 (L) 13.0 - 18.0 g/dL Hematocrit 37.0 (L) 40.0 - 52.0 % MCV 88.3 80.0 - 98.0 fL MCH 28.6 26.0 - 34.0 pg MCHC 32.4 32.0 - 36.0 % RDW 15.3 (H) 11.5 - 14.5 % Platelets 150 140 - 440 10*3/uL MPV 9.7 7.4 - 10.4 fL Granulocytes % 68.3 40.0 - 80.0 % Lymphocyte % 18.8 (L) 20.0 - 40.0 % Monocytes 11.1 (H) 2.0 - 10.0 % Eosinophils 1.2 1.0 - 6.0 % Basophils 0.6 0.0 - 2.0 % Absolute Neut # 4.1 1.8 - 7.0 10*3/uL Absolute Lymph # 1.1 1.0 - 4.3 10*3/uL Absolute [place] # 0.7 0.0 - 0.8 10*3/uL Absolute Eos # 0.1 0.0 - 0.5 10*3/uL Absolute Baso # 0.0 0.0 - 0.2 10*3/uL Basic Metabolic Panel Result Value Ref Range Sodium 139 135 - 145 mmol/L Potassium 5.3 (H) 3.5 - 5.1 mmol/L Chloride 109 (H) 98 - 107 (more content not included)... [facility] 05-26-2021 History of Present illness Narrative 1621: Results of stress test resulted. Normal study after pharmacological stress, there is no evidence of stress-induced ischemia, but systolic function is reduced at 48%. Patient had a previous stress test 2 years ago, which showed preserved ejection fraction at 60%. I perfect serve Dr. Virgen who is on-call with cardiology at 1711, he responded and states that Dr. Azar will see the patient in the morning and kill as there are acute issues. I updated the patient, states that patient will likely be discharged in the morning pending cardiology consultation.. Clinical Decision Unit Progress Note Subjective: chest pain Focused Physical Exam: General: Patient is resting comfortably no acute distress. Vitals stable as documented. EYES: Patient wearing glasses. PERRLA. EOMs intact with no nystagmus. HEENT: Full range of motion of neck with no imitations. Neck is supple. No cervical midline tenderness. No JVD. Cardiac: Regular rate and rhythm. No murmurs rubs or gallops. No evidence of A. fib. Lungs: No wheezing rales or rhonchi. Nonlabored breathing. No crackles. No hypoxia. Abdomen: Soft, nondistended, no surgical abdominal findings. No obvious masses palpated. MKS: No peripheral edema. All compartments soft. Distal pulses equal intact bilaterally. Full range of motion of all 4 extremities with no limitations. Skin: Warm and dry. No pallor. NEURO: Alert and oriented x3. No obvious neuro deficits. Sensation and motor strength equal in the upper and lower extremities bilaterally. Nursing Notes Reviewed VITAL SIGNS: BP (!) 155/81 Pulse 57 Temp 98.1 F (36.7 C) Resp 18 Ht 6' 1 (1.854 m) Wt 258 lb (117 kg) SpO2 98% BMI 34.04 kg/m Labs (Updated from initial H&P): Results for orders placed or performed during the hospital encounter of 05/25/21 CBC Auto Differential Result Value Ref Range WBC 6.0 3.6 - 10.7 10*3/uL RBC 4.19 (L) 4.40 - 5.90 10*6/uL Hemoglobin 12.0 (L) 13.0 - 18.0 g/dL Hematocrit 37.0 (L) 40.0 - 52.0 % MCV 88.3 80.0 - 98.0 fL MCH 28.6 26.0 - 34.0 pg MCHC 32.4 32.0 - 36.0 % RDW 15.3 (H) 11.5 - 14.5 % Platelets 150 140 - 440 10*3/uL MPV 9.7 7.4 - 10.4 fL Granulocytes % 68.3 40.0 - 80.0 % Lymphocyte % 18.8 (L) 20.0 - 40.0 % Monocytes 11.1 (H) 2.0 - 10.0 % Eosinophils 1.2 1.0 - 6.0 % Basophils 0.6 0.0 - 2.0 % Absolute Neut # 4.1 1.8 - 7.0 10*3/uL Absolute Lymph # 1.1 1.0 - 4.3 10*3/uL Absolute [place] # 0.7 0.0 - 0.8 10*3/uL Absolute Eos # 0.1 0.0 - 0.5 10*3/uL Absolute Baso # 0.0 0.0 - 0.2 10*3/uL Basic Metabolic Panel Result Value Ref Range Sodium 139 135 - 145 mmol/L Potassium 5.3 (H) 3.5 - 5.1 mmol/L Chloride 109 (H) 98 - 107 mmol/L CO2 23 22 - 30 mmol/L Anion Gap 7 3 - 13 mmol/L Glucose 139 (H) 70 - 100 mg/dL BUN 27 (H) 7 - 17 mg/dL CREATININE 1.63 (H) 0.52 - 1.25 mg/dL eGFR 48.6 (A) >60 mL/min EGFR IF NonAfrican Micronesian 42.0 (A) >60 mL/min Calcium 9.1 8.4 - 10.4 mg/dL Brain Natriuretic Peptide Result Value Ref Range NT Pro-BNP 469 (H) 0 - 125 pg/mL D-Dimer, Quantitative Result Value Ref Range D-Dimer, Quant 0.20 <0.19 - 0.50 mg/L Troponin Result Value Ref Range Troponin I <0.012 0.000 - 0.034 ng/mL Troponin Result Value Ref Range Troponin I <0.012 0.000 - 0.034 ng/mL Basic Metabolic Panel w/ Reflex to MG Result Value Ref Range Sodium 140 135 - 145 mmol/L Potassium 4.4 3.5 - 5.1 mmol/L Chloride 109 (H) 98 - 107 mmol/L CO2 23 22 - 30 mmol/L Anion Gap 7 3 - 13 mmol/L Glucose 141 (H) 70 - 100 mg/dL BUN 26 (H) 7 - 17 mg/dL CREATININE 1.59 (H) 0.52 - 1.25 mg/dL eGFR 50.1 (A) >60 mL/min EGFR IF NonAfrican Micronesian 43.2 (A) >60 mL/min Calcium 8.9 8.4 - 10.4 mg/dL CBC Auto Differential Result Value Ref Range WBC 6.1 3.6 - 10.7 10*3/uL RBC 4.01 (L) 4.40 - 5.90 10*6/uL Hemoglobin 11.6 (L) 13.0 - 18.0 g/dL Hematocrit 35.2 (L) 40.0 - 52.0 % MCV 87.6 80.0 - 98.0 fL MCH 29.0 26.0 - 34.0 pg MCHC 33.1 32.0 - 36.0 % RDW 15.2 (H) 11.5 - 14.5 % Platelets 138 (L) 140 - 440 10*3/uL MPV 9.2 7.4 - 10.4 fL Granulocytes % 64.7 40.0 - 80.0 % Lymphocyte % 20.1 20.0 - 40.0 % Monocytes 12.5 (H) 2.0 - 10.0 % Eosinophils 2.2 1.0 - 6.0 % Basophils 0.5 0.0 - 2.0 % Absolute Neut # 4.0 1.8 - 7.0 10*3/uL Absolute Lymph # 1.2 1.0 - 4.3 10*3/uL Absolute [place] # 0.8 0.0 - 0.8 10*3/uL Absolute Eos # 0.1 0.0 - 0.5 10*3/uL Absolute Baso # 0.0 0.0 - 0.2 10*3/uL TROPONIN Result Value Ref Range Troponin I <0.012 0.000 - 0.034 ng/mL TROPONIN Result Value Ref Range Troponin I <0.012 0.000 - 0.034 ng/mL Radiographs (Updated From initial H&P): Radiologist's Report Reviewed: XR CHEST PORTABLE Result Date: 05/25/2021 Patient Name: JUSTO CLARK Diagnostic Radiology ACCESSION EXAM DATE/TIME PROCEDURE ORDERING PROVIDER [id number] 05/25/2021 12:54 EST CR Chest Portable [id number] -LEONILA DIAZ CPT code 57184 Reason For Exam (CR Chest Portable) CHEST PAIN , hx chf Report EXAMINATION: XR chest AP. EXAM DATE & TIME: 05/25/2021 12:54 PM EST INDICATION: CHEST PAIN , hx chf ADDITIONAL INFORMATION: 71-year-old male with chest pain presents for evaluation COMPARISON: none TECHNIQUE: Frontal view of the chest was obtained. FINDINGS: Lines/support devices: None. Cardiomediastinal silhouette: Within normal limits. Lungs/pleura: There is pulmonary vascular congestion. No focal consolidation, pleural effusion or pneumothorax. Osseous structures: Degenerative changes of the spine and shoulders are seen. No acute osseous abnormality is demonstrated. Other findings: There is chronic elevation of the left hemidiaphragm. IMPRESSION: Pulmonary vascular congestion. No acute cardiopulmonary abnormality identified. Report Dictated on --- Final --- Dictating Physician: MD JEFFERS CHRISTOPHER Signed Date and Time: 05/25/2021 1:39 pm Signed by: MD JEFFERS CHRISTOPHER Transcribed Date and Time: 05/25/2021 1:40 Assessment/MDM: Patient has denied chest pain. He is remained NPO pending afternoon stress test and cardiac consultation with Dr. Bullard. Patient is comfortable at this time his vital signs are within normal limits. His hyperkalemia has resolved and renal function has slightly improved. Laboratory analysis this morning is benign including troponin levels with no EKG changes. Plan: Stress test, cardiology consult Comment: Please note this report has been produced using speech recognition software and may contain errors related to that system including errors in grammar, punctuation, and spelling, as well as words and phrases that may be inappropriate. If there is any questions or concerns please feel free to contact the dictating provider for clarification. documented in this encounter [facility] Work Phone: 05-26-2021 Hospital Discharge instructions Beata Barber PA - 05/26/2021 Continue taking all of your medications as prescribed, follow-up with your lump roller Dr. Anderson within the next 1 week. Call his office tomorrow. Return to the emergency department if you experience any new or worsening symptoms including worsening chest pain, shortness of breath, lightheadedness, dizziness, nausea or vomiting. documented in this encounter [facility] Work Phone: 03-26-2021 History of Present illness Narrative He is here for follow up.He had his moderna booster yesterdayHad Acumen for primary seriesPreDM- A1c 6.4 in - lisinopril, metoprolol -BP controlledRenal cysts, nodule- saw Dr. Reno last in 2017 - repeat U/S done in September 2018 - cysts stableHx Prostate cancer- s/p prostatectomyG[facility]1 [facility] 2020 ; reports was repeated several months ago and [facility] - has another one coming up soonHx of cryptogenic stroke following his prostatectomy- on statin; was on aspirin and plavix but then changed to xarelto - denies bleeding or bruising issuesEvent monitor- negEcho- small PFO with right to left shunt ; ascending aortic aneurysm 4.5 cmCardiology- Dr. Anderson - chronic systolic CHF - HTN heart disease - last seen in July- said everything is stable ; scheduled again in AprilAscending aorta dilation- CT done in October 2019 showed stableAAA screen negLung nodule- CT due Apr 2021 - he declines this today as had a CT scan done in ER in January that was not concerningHx chronic neck and back pain - has had epidural injections without relief. Told he needs fusion but has declined. Referred to comprehensive pain management- on norco twice daily as neededHe gets his meds through the [facility]Ax of colon[facility]: 2015 - due - will scheduleGERD- on omeprazole 20 mgEGD 04/2020 - HH, intestinal metaplasiaAnemia- most recent hb 13.1CKD stage 3- referred to nephro last visit- seeing Dr. Mcgrath now - labs done in Feb reviewedCr 1.8GFR 38 [facility] Work Phone: documented as of this encounter (statuses as of 12/17/2022) [facility]11-10-2018 History of Past illness Narrative* Problem Noted Date Diagnosed Date Resolved Date Aphagia 02/25/2018 02/28/2018 documented as of this encounter (statuses as of 04/02/2023) [facility] Diagnosis Chest pain, unspecified type- Primary Decreased cardiac ejection fraction Aortic regurgitation Aortic valve disorders documented in this encounter [facility] Work Phone: Evaluation note* Diagnosis Palpitations VT (ventricular tachycardia) Paroxysmal ventricular tachycardia documented in this encounter [facility]Evaluation note* Diagnosis PVC (premature ventricular contraction)- Primary Other premature beats documented in this encounter [facility]* Diagnosis Primary hypertension Unspecified essential hypertension Heart failure with reduced ejection fraction (CMS/HCC) (HCC) documented in this encounter [facility]* Diagnosis PVC's (premature ventricular contractions)- Primary Other premature beats documented in this encounter [facility]Evaluation note* Diagnosis Acute otitis media, left- Primary Unspecified otitis media Seasonal allergic rhinitis, unspecified trigger [facility] Diagnosis Aneurysm of ascending aorta without rupture (HCC)- Primary documented in this encounter [facility]Evaluation note* Diagnosis Acute otalgia, bilateral- Primary TMJ click Temporomandibular joint sounds on opening and/or closing the jaw Itchy eyes Other ill-defined disorder of eye [facility] Narrative* The patient is being seen for the subsequent annual wellness visit. * Past Medical, Surgical and Family History: reviewed and updated in chart. * Medications and Supplements: Review of all medications by a prescribing practitioner or clinical pharmacist (such as prescriptions, OTCs, herbal therapies and supplements) documented in the medical record. * No, the patient is not using opioids. * Patient Self Assessment of Health Status: good. * Tobacco use: Non-User * Alcohol use: User * Illicit drug use: Non-User * Current diet: Heart Healthy Diet, does consume adequate fluids and does not consume caffeine. * Exercise Frequency: infrequently. * Depression/Suicide Screening: . * During the past 2 weeks, the patient has not felt down, depressed or hopeless. * During the past 2 weeks, the patient has not felt little interest or pleasure in doing things. * Hearing Impairment: Patient has significant hearing impairment, He uses a hearing aid. * Cognitive Impairment: No cognitive impairment observed. * Bathing: performs independently. * Dressing: performs independently. * Walking: performs independently. * Managing Finances: performs independently. * Shopping: performs independently. * Managing Medications: performs independently. * Housework / Basic Home Maintenance: performs independently. * Falls Risk Screening:. JUSTO has not fallen in the last 6 months. * Home safety risk factors: none. * Advance directives:. Advanced Care Planning discussed and documented advance care plan or surrogatedecision maker documented in the medical record. Patient has living will. Patient has healthcare POA. (Linda - ). * He is here for follow up. 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 Reno last in 2017 - repeat U/S done in September 2018 - cysts stable * Hx Prostate cancer- s/p prostatectomy * [facility]- [facility] all have been fine * Hx of cryptogenic stroke following his prostatectomy- on statin; was on aspirin and plavix but thenchanged to xarelto - denies bleeding or bruising issues * Event monitor- neg * Echo- small PFO with right to left shunt ; ascending aortic aneurysm 4.5 cm * Cardiology- Dr. Anderson retired so will be seeing one of his partners- chronic systolic CHF - HTN heart disease - seen in May- note reviewed * AAA screen neg * Stress echo neg May 2021 * Hx chronic neck and back pain - has had epidural injections without relief. Told he needs fusion but has declined. Referred to comprehensive pain management- on norco twice daily as needed * [facility] * GERD- on omeprazole 20 mg * EGD 04/2020 - HH, intestinal metaplasia * Anemia- most recent hb 11.5 * CKD stage 3- referred to nephro last visit- seeing Dr. Mcgrath * He had labs done in August[facility] * Hb 11.5 * CMP- creatinine 1.7, GFR 43 * Chol 94, LDL 46, HDL 22, trig 156 * B12 normal * Ferritin 14 - just started iron supplementation ; had colonoscopy in July * Thyroid function normal * A1c 6.6 * Reports will be seeing [place] [facility]ology in 2 weeks for anemia * Left ear pain x 1 month - intermittent * Wears hearing aids * No BROWN or vision changes * Some sinus drainage -[facility] Work Phone: History of Present illness Narrative* He is here for follow up. 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 Reno last in 2017 - repeat U/S done in September 2018 - cysts stable * Hx Prostate cancer- s/p prostatectomy * [facility]- reports all have been fine * Hx of cryptogenic stroke following his prostatectomy- on statin; was on aspirin and plavix but thenchanged to xarelto - denies bleeding or bruising issues * Event monitor- neg * Echo- small PFO with right to left shunt ; ascending aortic aneurysm 4.5 cm , EF 48% * Cardiology- Dr. Anderson retired so now seeing Dr. Bo- chronic systolic CHF - HTN heart disease - seen in November- note reviewed * AAA screen neg * Stress echo neg May 2021 * Reports is getting a heart monitor placed tomorrow - for 1 month - for palpitations ; feeling it pound; hard to catch his breath at times * Hx chronic neck and back pain - has had epidural injections without relief. Told he needs fusion but has declined. Referred to comprehensive pain management- on norco twice daily as needed * [facility] * GERD- on omeprazole 20 mg * EGD 04/2020 - HH, intestinal metaplasia * Anemia- most recent Hb 12.3 * CKD stage 3- Dr. Mcgrath- scheduled in April for follow up * He had [facility] 02/15/22 [facility] * Hb 12.3 * CMP- creatinine 1.8, GFR 40 * ferritin 51 * Thyroid function normal * Reports saw [place] hematology for anemia - reports they ran tests, and I am fine [facility] Work Phone: Summary Purpose Family History No Family History Records Found Grandfather Name Dates Details Family history of colon canc er(V16.0, Z80.0) Status:Active Mother Name Dates Details Family history of (7 99.9, R99) Status:Active Family history of hypertensi on(V17.49, Z82.49) Status:Active Father Name Dates Details Family history of lung cance r(V16.1, Z80.1) Status:Active Family history of (7 99.9, R99) Status:Active Family history of renal cell carcinoma(V16.51, Z80.51) Status:Active Sister Name Dates Details Family history of leukemia(V 16.6, Z80.6) Status:Active Family history of renal cell carcinoma(V16.51, Z80.51) Status:Active Grandfather Name Dates Details Family history of colon canc er(V16.0, Z80.0) Status:Active Mother Name Dates Details Family history of (7 99.9, R99) Status:Active Family history of hypertensi on(V17.49, Z82.49) Status:Active Father Name Dates Details Family history of lung cance r(V16.1, Z80.1) Status:Active Family history of (7 99.9, R99) Status:Active Family history of renal cell carcinoma(V16.51, Z80.51) Status:Active Sister Name Dates Details Family history of leukemia(V 16.6, Z80.6) Status:Active Family history of renal cell carcinoma(V16.51, Z80.51) Status:Active Unknown Family Member Name Dates Details Family history of lung cance r: Father(V16.1, Z80.1) Status:Active : Father, Mother Status:Active Family history of hypertensi on: Mother(V17.49, Z82.49) Status:Active Family history of colon canc er: Paternal Grandfather(V16.0, Z80.0) Status:Active Family history of leukemia: Sister(V16.6, Z80.6) Status:Active Family history of renal cell carcinoma: Father, Sister(V16.51, Z80.51) Status:Active Unknown Family Member Name Dates Details Family history of lung cance r: Father(V16.1, Z80.1) Status:Active : Father, Mother Status:Active Family history of hypertensi on: Mother(V17.49, Z82.49) Status:Active Family history of colon canc er: Paternal Grandfather(V16.0, Z80.0) Status:Active Family history of leukemia: Sister(V16.6, Z80.6) Status:Active Family history of renal cell carcinoma: Father, Sister(V16.51, Z80.51) Status:Active Unknown Family Member Name Dates Details Family history of lung cance r: Father(V16.1, Z80.1) Status:Active : Father, Mother Status:Active Family history of hypertensi on: Mother(V17.49, Z82.49) Status:Active Family history of colon canc er: Paternal Grandfather(V16.0, Z80.0) Status:Active Family history of leukemia: Sister(V16.6, Z80.6) Status:Active Family history of renal cell carcinoma: Father, Sister(V16.51, Z80.51) Status:Active Unknown Family Member Name Dates Details Family history of lung cance r: Father(V16.1, Z80.1) Status:Active : Father, Mother Status:Active Family history of hypertensi on: Mother(V17.49, Z82.49) Status:Active Family history of colon canc er: Paternal Grandfather(V16.0, Z80.0) Status:Active Family history of leukemia: Sister(V16.6, Z80.6) Status:Active Family history of renal cell carcinoma: Father, Sister(V16.51, Z80.51) Status:Active Unknown Family Member Name Dates Details Family history of lung cance r: Father(V16.1, Z80.1) Status:Active : Father, Mother Status:Active Family history of hypertensi on: Mother(V17.49, Z82.49) Status:Active Family history of renal cell carcinoma: Father, Sister(V16.51, Z80.51) Status:Active Family history of leukemia: Sister(V16.6, Z80.6) Status:Active Family history of colon canc er: Paternal Grandfather(V16.0, Z80.0) Status:Active Unknown Family Member Name Dates Details Family history of lung cance r: Father(V16.1, Z80.1) Status:Active : Father, Mother Status:Active Family history of hypertensi on: Mother(V17.49, Z82.49) Status:Active Family history of colon canc er: Paternal Grandfather(V16.0, Z80.0) Status:Active Family history of leukemia: Sister(V16.6, Z80.6) Status:Active Family history of renal cell carcinoma: Father, Sister(V16.51, Z80.51) Status:Active Unknown Family Member Name Dates Details Family history of lung cance r: Father(V16.1, Z80.1) Status:Active : Father, Mother Status:Active Family history of hypertensi on: Mother(V17.49, Z82.49) Status:Active Family history of colon canc er: Paternal Grandfather(V16.0, Z80.0) Status:Active Family history of leukemia: Sister(V16.6, Z80.6) Status:Active Family history of renal cell carcinoma: Father, Sister(V16.51, Z80.51) Status:Active Unknown Family Member Name Dates Details Family history of lung cance r: Father(V16.1, Z80.1) Status:Active : Father, Mother Status:Active Family history of hypertensi on: Mother(V17.49, Z82.49) Status:Active Family history of colon canc er: Paternal Grandfather(V16.0, Z80.0) Status:Active Family history of leukemia: Sister(V16.6, Z80.6) Status:Active Family history of renal cell carcinoma: Father, Sister(V16.51, Z80.51) Status:Active Advance Directives No Advanced Directives Records FoundDocuments on File Type Date Recorded Patient College Sports Assistant Expl anation ACP-Advance Directive ACP-Power of Diesel Instructor Latest Code Status on File Code Status Date Activated Date Inactivated Comments Full Code 05/03/2018 8:57 AM 05/03/2018 4:06 PM Full Code 05/03/2018 7:35 AM 05/03/2018 8:57 AM Full Code 10/24/2017 4:19 AM 10/24/2017 3:47 PM Full Code 11/28/2016 4:04 PM 11/29/2016 11:54 PM Full Code 11/28/2016 10:01 AM 11/28/2016 4:04 PM Latest Code Status on File Code Status Date Activated Date Inactivated Comments Full Code 05/25/2021 2:55 PM Full Code 05/03/2018 8:57 AM 05/03/2018 4:06 PM Hospital Course Note Patient: JUSTO CLARK Age: 68 years Sex: Male : 1950 Associated Diagnoses: None Author: DALILA CHAKRABORTY, [place] Hospital Course 68 yo male with prostate cancer underwent a robot-assisted laparoscopic prostatectomy with bilateral pelvic lymph node dissection 02/24/18. He recovered appropriately in the hospital over the course of 1 day where he was ambulating, tolerating a regular diet, and demonstrated appropriate care of his maloney catheter which he will be discharged home with for 1 week. Physical Examination VS/Measurements Vital Signs 02/24/2018 7:24 EST Temperature Oral 36.6 degC NORMAL Peripheral Pulse Rate 58 bpm LOW Respiratory Rate 18 br/min NORMAL Systolic Blood Pressure 103 mmHg NORMAL Diastolic Blood Pressure 61 mmHg NORMAL Mean Arterial Pressure, Cuff 75 mmHg SpO2 94 % NORMAL Oxygen Therapy Room air General: Alert and oriented. Respiratory: Respirations are non-labored. Cardiovascular: Normal rate. Gastrointestinal: Soft, Non-tender, No (more content not included)... Discharge Instructions * Attachments The following attachments cannot be sent through Care Everywhere. * Foreign Body in the Ear ([place]) documented in this encounter Assessments Diagnosis Foreign body of left ear, initial encounter- Primary Ear canal abrasion, left, initial encounter Chief Complaint * PT is here for a 6 month f/u * PT declines the flu shot today medicare + follow upPT is here for a f/u on meds Reason for Referral Specialty Diagnoses / Procedures Referred By Contac t Referred To Contact Cardiology Diagnoses Palpitations VT (ventricular tachycardia) Procedures Cardiac holter monitor (24 hours) Raleigh Bo MD [address] [place] [address] Referral ID Status Reason Start Date Expiration Date Visits Re quested Visits Authorized [id number] Closed 06/02/2022 11/29/2022 1 1 Specialty Diagnoses / Procedures Referred By Millieac t Referred To Contact Cardiology Diagnoses Aneurysm of ascending aorta without rupture (HCC) Procedures Transthoracic echocardiogram (TTE) complete with contrast, bubble, strain, and 3D PRN MI ECHO TTHRC R-T 2D W/WOM-MODE COMPL SPEC&COLR D MI TTE W OR WO FOL WCON,DOPPLER Raleigh Bo MD [address] [place] [address] Referral ID Status Reason Start Date Expiration Date V isits Requested Visits Authorized [id number] Pending Review 02/28/2023 02/28/2024 1 1 Additional Source Comments (unrecognized sect ion and content) No Status Records FoundNo Status Records FoundNo Status Records FoundNo Status Records FoundNo Status Records FoundNo Status Records FoundNo Status Records FoundNo Status Records FoundNo Status Records FoundNo Status Records FoundNo Status Records FoundNo Status Records Found INFORMATION SOURCE (unrecogn ized section and content) DATE CREATED AUTHOR AUTHOR'S ORGANIZ ATION 04/04/2018 [facility]anca Powers [facility] DATE CREATED AUTHOR AUTHOR'S ORGANIZ ATION 05/11/2018 [facility] DATE CREATED AUTHOR AUTHOR'S ORGANIZ ATION 05/17/2018 [facility] DATE CREATED AUTHOR AUTHOR'S ORGANIZ ATION 10/15/2018 [facility] DATE CREATED AUTHOR AUTHOR'S ORGANIZ ATION 06/26/2020 [facility] DATE CREATED AUTHOR AUTHOR'S ORGANIZ ATION [facility]20[facility] DATE CREATED AUTHOR AUTHOR'S ORGANIZ ATION 04/07/2022 [facility] DATE CREATED AUTHOR AUTHOR'S ORGANIZ ATION 07/20/2022 [facility] DATE CREATED AUTHOR AUTHOR'S ORGANIZ ATION 09/25/2022 [facility] DATE CREATED AUTHOR AUTHOR'S ORGANIZ ATION 03/01/2023 [facility] tem [facility] DATE CREATED AUTHOR AUTHOR'S ORGANIZ ATION 04/04/2023 [facility] Reason for Visit (unrecogniz ed section and content) Reason Comments Chest Pain Specialty Diagnoses / Procedures Referred By Contac t Referred To Contact Diagnoses Palpitations Procedures MI ECHO TTHRC R-T 2D W/WOM-MODE COMPL SPEC&COLR D [facility] [address] [place] [address] Referral ID Status Reason Start Date Expiration Date Visits Re quested Visits Authorized [id number] 1 1 Reason Comments New Patient Reason Onset Date Comments Orders 07/14/2022 Reason Comments 3 Month Follow Up Reason Comments Ear Problem Ear is painful and i tchy, had water coming out. Eyes are bothering him Reason Comments 6 Month Follow-up Hypertension Reason Comments Ear Pain Left ear pain, also drainage, eyes are dry and has a lot of eye discharge, Conjunctivitis Ordered Prescriptions (unrec ognized section and content) Scheduled Active and Recently Administ ered Medications (unrecognized section and content) Continuous Medication Order 05/24/2021 05/25/2021 05/26/2021 DOBUTamine (DOBUTREX) 250 mg in dextrose 5 % 250 mL infusion 10 mcg/kg/min 117 kg (70.2 mL/hr), IntraVENous, CONTINUOUS, Starting on Tue05/25/21 at 1715, Only to be given during CARDIAC STRESS TEST ONLY. Start infusion at 10 mcg/kg/min and adjust infusion based on patient response and hospital protocol. If patient does not achieve target heart rate with titration of Dobutamine per the protocol then enter (Per Protocol) Atropine injection, 0.25 mg order with initial dose and subsequent dose per hospital protocol. 1520 (New Bag - Prov ider: Bess Alvares RN)1607 (Stopped - Provider: Bess Alvares RN) PRN Medication Order 05/24/2021 05/25/2021 05/26/2021 0.9 % sodium chloride infusion 25 mL, IntraVENous, at 100 mL/hr, PRN, If patient receiving piggyback infusions without ordered maintenance IV fluids or with frequent/long duration piggyback infusions, Starting on Tue05/25/21 at 1452, Administer at the same rate as the piggyback being infused. acetaminophen (TYLENOL) tablet 650 mg 650 mg, Oral, EVERY 6 HOURS PRN, Pain Mild (1-3), Starting on Tue05/25/21 at 1452, Maximum dose of acetaminophen is 4000 mg from all sources in 24 hours. HYDROcodone-acetaminophen (NORCO) 10-325 MG per tablet 1 tablet 1 tablet, Oral, EVERY 6 HOURS PRN, Pain Moderate (4-6), Starting on Tue05/25/21 at 1641, Maximum dose of acetaminophen is 4000 mg from all sources in 24 hours. 1641 (Held by provider - Provider: Vianca Parks RN - Reason: Other) HYDROcodone-acetaminophen (NORCO) 5-325 MG per tablet 1 tablet 1 tablet, Oral, EVERY 6 HOURS PRN, Pain Moderate (4-6), Starting on Tue05/25/21 at 1933, Maximum dose of acetaminophen is 4000 mg from all sources in 24 hours. 195 (Given - Provider: Tracy Villasenor RN) 1036 (Given - Provider: Artem Ely RN) ondansetron (ZOFRAN) injection 4 mg 4 mg, IntraVENous, EVERY 30 MIN PRN, Nausea, Starting on Tue05/25/21 at 1452, For 2 doses perflutren lipid microspheres (DEFINITY) injection 1.65 mg (COMPLETED) 1.65 mg (1.5 mL), IntraVENous, IMG ONCE PRN, Other, Inability to adequately visualize heart without contrast, Starting on Tue05/25/21 at 1712, For 1 dose, Only to be given in Echo Lab during CARDIAC STRESS TEST ONLY. Echocardiogram should first be performed without contrast and if exam is adequate then DO NOT administer the contrast. If unable to adequately visualize heart without contrast and the patient has no contraindications to echo contrast then administer the echo contrast. 160 (Given - Provider: Bess Alvares RN) sodium chloride flush 0.9 % injection 5-40 mL 5-40 mL, IntraVENous, PRN, Line Care, After every IV line use, Starting on Tue05/25/21 at 1452, For Line Patency: Peripheral IV = 5 mL; Midline or Central Line = 10 mL/lumen. If following IV push medication, administer flush at same rate as the IV push. Flush volume is determined by type of infusion therapy being given. For non-viscous solutions use: Peripheral IV = 5 mL Midline or Central Line = 10 mL/lumen For viscous solutions (i.e. blood components, parenteral nutrition, contrast media, or after obtaining blood sample) use: Peripheral IV = 10 mL Midline or Central Line = 20 mL/lumen Care Teams (unrecognized sec tion and content) Device Repair Technician Relationship Specialty Start Date End Date Sintia Mayorga DO [address] [place] [address] 1 [place] [id number] PCP - General 03/29/18 Device Repair Technician Relationship Specialty Start Date End Date Sintia Mayorga DO [address] [place] [address] 1 [place] [id number] PCP - General 03/29/18 Device Repair Technician Relationship Specialty Start Date End Date Sintia Mayorga DO [address] [place] [address] 1 [place] [address] PCP - General 03/29/18 Device Repair Technician Relationship Specialty Start Date End Date Sintia Mayorga DO [address] [place] [address] 1 [place] [address] PCP - General 03/29/18 Device Repair Technician Relationship Specialty Start Date End Date Sintia Mayorga DO [address] [place] [address] 1 [place] [address] PCP - General Family Medicine 06/24/20 Device Repair Technician Relationship Specialty Start Date End Date Sintia Mayorga DO [address] [place] [address] [place] [address] PCP - General 03/29/18 Device Repair Technician Relationship Specialty Start Date End Date Sintia Mayorga DO [address] [facility] [place] [address] [place] [address] PCP - General Family Medicine 06/24/20 Source Comments (unrecognize d section and content) In the event this informatio n is protected by the Federal Confidentiality of Alcohol and Drug Abuse Patient Records regulations: The Federal rules restrict any use of the information to criminally investigate or prosecute any alcohol or drug abuse patient.[facility] the event this information is protected by the Federal Confidentiality of Alcohol and Drug Abuse Patient Records regulations: The Federal rules restrict any use of the information to criminally investigate or prosecute any alcohol or drug abuse patient.[facility] FOR RECORDS PERTAINING TO PATIENTS WHO ARE OR HAVE BEEN ENROLLED IN A CHEMICAL DEPENDENCY/SUBSTANCEABUSE PROGRAM, SOME INFORMATION MAY BE OMITTED. This clinical summary was aggregated from multiple sources. Caution should be exercised in using it in the provision of clinical care. This summary normalizes information from multiple sources, and as a consequence, information in this document may materially change the coding, format and clinical context of patient data. In addition, data may be omitted in some cases. CLINICAL DECISIONS SHOULD BE BASED ON THE PRIMARY CLINICAL RECORDS. [facility] provides no warranty or guarantee of the accuracy or completeness of information in this document.
--- NOTE | 2023-04-22 19:26 | EDS_ITS ---
HPI History of Present Illness Chief Complaint: Complaint Informant: patient Narrative Narrative: Patient is a 73-year-old male with a history of prior prostate cancer status post prostatectomy and on chronic Xarelto therapy presenting for 1 day of mild dysuria as well as worsening hematuria. He notes when he woke up this morning at 6:30 in the morning he had some blood in his urine. His urine is progressively darkened throughout the day. He has a very mild itching/stinging sensation with urination. Spoke with his urologist, Dr. Mcgrath, mended he be evaluated for urinalysis and possible imaging. Patient is chronic back pain but states is no different than his normal back pain. Denies any nausea, vomiting, fever or chills. Denies any history of urinary tract infections. Denies any recent antibiotics but notes that a couple weeks ago he was on steroids for an ear problem. No other complaints or concerns at this time. Is not aware of any history of urinary retention [facility] Medical History CVA (cerebral vascular accident) GERD (gastroesophageal reflux disease) Heart defect High cholesterol HTN (hypertension) Prostate CA Home Medications hydrocodone 10 mg-acetaminophen 325 mg tablet 1 ea PO TID 07/18/16 [History Last Taken 12/11/16] aspirin 81 mg chewable tablet 81 mg PO DAILY 12/11/16 [History Last Taken 12/11/16] atorvastatin 80 mg tablet 80 mg PO DAILY 12/11/16 [History Last Taken 12/11/16] lisinopril 5 mg tablet (Zestril) 10 mg PO DAILY 12/11/16 [History Last Taken 12/11/16] metoprolol succinate 25 mg tablet,extended release 24 hr 50 mg PO DAILY 12/11/16 [History Last Taken 12/11/16] aspirin 81 mg tablet,delayed release (Adult Low Dose Aspirin) 81 mg PO DAILY 02/16/18 [History Last Taken Unknown] lisinopril 10 mg tablet 10 mg PO DAILY 02/16/18 [History Last Taken Unknown] meloxicam 15 mg tablet (Mobic) 15 mg PO DAILY 02/16/18 [History Last Taken Unknown] metoprolol succinate 25 mg tablet,extended release 24 hr 25 mg PO DAILY 02/16/18 [History Last Taken Unknown] pantoprazole 40 mg tablet,delayed release 40 mg PO DAILY PRN GERD #90 tabs 02/16/18 [Rx Last Taken Unknown] polymyxin B sulfate 10,000 unit-trimethoprim 1 mg/mL eye drops (Polytrim) 2 drp ophthalmic (eye) .q4 hr #10 mL 02/16/18 [Rx Last Taken Unknown] omeprazole 40 mg capsule,delayed release 40 mg PO DAILY 01/23/21 [History Last Taken Unknown] rivaroxaban 20 mg tablet (Xarelto) 20 mg PO DAILY 01/23/21 [History Last Taken Unknown] cephalexin 500 mg capsule 500 mg PO Q12 #10 CAPSULES 04/22/23 [Rx Last Taken Unknown] Allergy/AdvReac Type Severity Reaction Status Date / Time morphine AdvReac Other Verified 10/31/21 15:54 Surgical History H/O laminectomy Social History Smoking Status: Former smoker ROS ROS ED Constitutional Constitutional ED: Denies chills or fever(s) Respiratory/Chest Respiratory/Chest: Denies cough Gastrointestinal Gastrointestinal: Denies abdominal pain, nausea or vomiting Genitourinary Genitourinary ED: Reports dysuria and hematuria Musculoskeletal Musculoskeletal: Reports back pain and other Details: chronic back pain Integumentary Denies rash Neurologic Neurologic: Denies headache(s) Psychiatric Psychiatric: Denies anxiety or depression Hematologic/Lymphatic Hematologic/Lymphatic: Reports easy bleeding and easy bruising EXAM Physical Exam Const Vital Signs: 04/22/23 17:06 04/22/23 20:08 Temperature 99 F Temperature Source Temporal Pulse Rate 65 69 Respiratory Rate 14 18 Blood Pressure 131/77 H 136/74 H Blood Pressure Mean 95 94 Pulse Ox 95 94 Oxygen Delivery Method Room Air Positive well nourished and well developed General Appearance ED: well developed; Negative for pallor Eyes PERRL Neck supple Resp normal respiratory effort Cardio regular rate and regular rhythm GI non-tender, non-distended and no masses no CVA tenderness Back/Spine no CVA tenderness Thoracic Spine / Upper Back: Negative for thoracic spinal tenderness Lumbar Spine / Lower Back: Negative for lumbar spinal tenderness Extremity normal to inspection Neuro oriented x3 Sensorium / Orientation: alert Motor Exam: Negative for general weakness Psych mental status grossly normal Skin General Skin Exam: Negative for pallor MDM MDM MDM Narrative Medical decision making narrative: Evaluate for hematuria. He has some mild dysuria. He has chronic back pain but no significant change in this. Low suspicion for kidney stone based on his presentation. Urinalysis is concerning for UTI as he has positive nitrates with greater than 100 red blood cells. Given his lack of associated pain and associated dysuria I suspect this is a urinary tract infection. As he does not have systemic symptoms such as nausea, vomiting fever, chills I do not think he requires blood work. Will start on Keflex and send off for urine culture. Bladder scan shows 68 mL in the bladder so I do not think he has acute urinary retention requiring a Hurtado catheter. Patient agreeable plan of care. Given return precautions. Will follow-up outpatient with his urologist. Discharged home in stable condition. First dose of antibiotics given in the emergency room Lab Data Attestation: I reviewed the patient's lab results. Labs: Laboratory Results - last 24 hr 04/22/23 18:00 Urine Color Red Urine Clarity Cloudy Urine pH 5.0 Ur Specific [place] 1.020 Urine Protein 100 H Urine Glucose (UA) Normal Urine Ketones Negative Urine Occult Blood 250 H Urine Nitrite Positive H Urine Bilirubin Negative Urine Urobilinogen Normal Ur Leukocyte Esterase 25 H Urine RBC > 100 SEEN Urine WBC 0 SEEN Ur Squamous Epith Cells 0 SEEN Urine Bacteria 0 SEEN Urine Mucus 0 SEEN Discharge Plan Triage Chief Complaint: Complaint ED Provider: Guadalupe Mack Dx/Rx/DC Orders Clinical Impression: Hematuria, Acute UTI Instructions: ED Hematuria, ED Bladder Infection, Male (Adult) Prescriptions: New cephalexin 500 mg capsule 500 mg PO Q12 Qty: 10 0RF No Action meloxicam [Mobic] 15 mg tablet 15 mg PO DAILY lisinopril 10 mg tablet 10 mg PO DAILY aspirin [Adult Low Dose Aspirin] 81 mg tablet,delayed release (DR/EC) 81 mg PO DAILY metoprolol succinate 25 mg tablet extended release 24 hr 25 mg PO DAILY polymyxin B sulf-trimethoprim [Polytrim] 10,000 unit- 1 mg/mL drops 2 drp OPHTHALMIC .q4 hr Qty: 10 0RF Rx Instructions: while awake; do not exceed 6 doses in 24 hours may use for 3-5 days pantoprazole 40 mg tablet,delayed release (DR/EC) 40 mg PO DAILY PRN (Reason: GERD) Qty: 90 3RF hydrocodone-acetaminophen 1 EACH tablet 1 ea PO TID aspirin 81 MG tablet,chewable 81 mg PO DAILY atorvastatin 80 MG tablet 80 mg PO DAILY lisinopril [Zestril] 5 MG tablet 10 mg PO DAILY metoprolol succinate 25 MG tablet extended release 24 hr 50 mg PO DAILY omeprazole 40 mg capsule,delayed release(DR/EC) 40 mg PO DAILY Patient Comments: TAKE ONE CAPSULE BY MOUTH EVERY DAY Xarelto 20 mg Tablet 20 mg PO DAILY Primary Care Provider: Sitnia Mayorga Referrals: Sintia Mayorga DO [Primary Care Provider] - Activity Restrictions/Additional Instructions: Please follow-up with your urologist. Urine culture was sent and you will be contacted if you need change of antibiotics. If you have a hard time urinating or have a progression/worsening your symptoms please return to the emergency room. Disposition Disposition: Home, Self Care Discharge Date/Time: 04/22/23 20:09
[2023-04-22] MEDS: Cephalexin 250 MG Capsule 500 MG PO (19:35)
[2023-04-22 20:08] VITALS: BP 136/74; PULSE 69; RESP 18; O2SAT 94
== END 2023-04-22 20:09 | disposition home or self-care (01) ==
PROVIDERS: Emergency Provider Emergency Medicine; PCP Family Medicine; Visit Provider Emergency Medicine
DX: N39.0 Urinary tract infection, site not specified (principal); R31.9 Hematuria, unspecified; M54.9 Dorsalgia, unspecified; G89.29 Other chronic pain; I10 Essential (primary) hypertension; E78.00 Pure hypercholesterolemia, unspecified; Z90.79 Acquired absence of other genital organ(s); Z85.46 Personal history of malignant neoplasm of prostate; Z79.01 Long term (current) use of anticoagulants; Z79.82 Long term (current) use of aspirin; Z87.891 Personal history of nicotine dependence; Z86.73 Personal history of transient ischemic attack (TIA), and cerebral infarction without residual deficits
CPT/HCPCS: 81001; 87086; 99282

== ENCOUNTER 2023-04-23 08:29 | Emergency (ER) | payer MEDICARE, OTHER, SELFPAY ==
[2023-04-23 08:30] VITALS: BP 154/76; PULSE 104; RESP 16; TEMP 36.4; O2SAT 98; BMI 31.9
--- OUTSIDE RECORDS SUMMARY | 2023-04-23 09:22 | XMS RPT_ITS | CCD ---
Author Name Unknown Address [address] [place] [address] Organization [facility] Care Team Providers Care Founder And Chief Executive Officer Name Role Phone OCHOA RENO Unavailable Unavailable OCHOA RENO Unavailable Unavailable NO FAMILY PHYSICIAN, 837 Unavailable Unavail able SPENCER APGAN Unavailable Unavailable SOREN REDDY Unavailable Unavailable ITRAT, [...] ailable Sintia Mayorga Primary Care Provider [phone] MukeshGabrielle bowersherine C Unavailable [phone] Unavailable Unavailable Woodruff Sintia CANDELARIA Primary Care Provider U navailable Mukesh Sintia CANDELARIA Primary Care Provider Mukesh, Dr. Sintia Cobos Primary Care Unavailable Mukesh, Dr. Sintia Cobos Referring Unavailable Woodruff, Dr. Sintia Cobos Attending Unavailable Mukesh, Dr. Sintia Cobos Primary Care Unavailable Mukesh, Dr. Sintia Cobos Primary Care Unavailable Woodruff, Dr. Sintia Cobos Referring Unavailable Woodruff, Dr. Sintia Cobos Attending Unavailable MUKESH, SINTIA Arriaga Attending Unavaila ble MUKESH, SINTIA C Primary Care Unavaila ble Mukesh DOiSntia C Primary Care Provider Mukesh DOGabrielleSintia Primary [...] Allergy 7 Other (See Comments), Diarrhea, Other [facility] Repository (6 sources) Ciprofloxacin; Translations: [CIPROFLOXACIN] Drug Allergy 2 Other [facility] Medications Current Medications Medication Drug Class(es) Dates Sig (Normalized) Sig (Original) acetaminophen 325 mg oral tablet (1 source) Start: 05-25-2021 acetaminophen (TYLENOL) tablet 650 mg acetaminophen 325 mg / HYDROcodone bitartrate 10 mg oral tablet (20 sources) Opioid Agonist Start: 02-05-2022 take 1 tablet by mouth three times daily as needed HYDROcodone-acetami nophen (Russell) 10-325 MG tablet Take 1 tablet by [...] Test Name Value Interpretation Reference Range Facil [facility] Vital Signs Date Time Vital Sign Value Performing Clinician Facility 04-02-2023 09:22-0500 Body temperature 102.79 [degF] Pooja De León APRN.CNP Work Phone: [facility] 04-02-2023 09:22-0500 Body weight 111.22 kg Pooja De León APRN.CNP Work Phone: [facility] 04-02-2023 09:22-0500 Diastolic blood pressure 73 mm[Hg] Pooja De León APRN.CNP Work Phone: [facility] 04-02-2023 09:22-0500 Heart rate 54 /min Poojacailin Sosaye AMORTIZATION CLERK.BOTTOM CEMENTER Work Phone: [facility] 04-02-2023 09:22-0500 SaO2% (BldA) [Mass fraction] 95 % Poojacailin Sosaye AMORTIZATION CLERK.BOTTOM CEMENTER Work Phone: [facility] 04-02-2023 09:22-0500 Systolic blood pressure 139 mm[Hg] Pooja Sosaye AMORTIZATION CLERK.BOTTOM CEMENTER Work Phone: [facility] 02-28-2023 10:59-0500 Body height 188 cm Raleigh Bo MD Work Phone: [facility] 02-28-2023 10:59-0500 Body mass index (BMI) [Ratio] 31.46 kg/m2 Raleigh Bo MD Work Phone: [facility] 02-28-2023 10:59-0500 Body weight 111.13 kg Raleigh Bo MD Work Phone: [facility] 02-28-2023 10:59-0500 Diastolic blood pressure 80 mm[Hg] Raleigh Bo MD Work Phone: [facility] 02-28-2023 10:59-0500 Heart rate 59 /min Raleigh Bo MD Work Phone: [facility] 02-28-2023 10:59-0500 SaO2% (BldA) [Mass fraction] 92 % Raleigh Bo MD Work Phone: [facility] 02-28-2023 10:59-0500 Systolic blood pressure 114 mm[Hg] Raleigh Bo MD Work Phone: [facility] 12-17-2022 11:46-0400 Body height 188 cm Kaitlyn Nair AMORTIZATION CLERK.BOTTOM CEMENTER Work Phone: [facility] 12-17-2022 11:46-0400 Body weight 109.32 kg Kaitlyn Nair AMORTIZATION CLERK.BOTTOM CEMENTER Work Phone: [facility] 09-01-2023 11:46-0400 Diastolic blood pressure 83 mm[Hg] Kaitlyn Nair AMORTIZATION CLERK.BOTTOM CEMENTER Work Phone: [facility] 12-17-2022 11:46-0400 Heart rate 55 /min Kaitlyn Nair AMORTIZATION CLERK.BOTTOM CEMENTER Work Phone: [facility] 12-17-2022 11:46-0400 Respiratory rate 16 /min Kaitlyn Nair AMORTIZATION CLERK.BOTTOM CEMENTER Work Phone: [facility] 12-17-2022 11:46-0400 SaO2% (BldA) [Mass fraction] 94 % Kaitlyn Nair AMORTIZATION CLERK.BOTTOM CEMENTER Work Phone: [facility] 12-17-2022 11:46-0400 Systolic blood pressure 147 mm[Hg] Kaitlyn Nair AMORTIZATION CLERK.BOTTOM CEMENTER Work Phone: [facility] 08-30-2022 11:39-0400 Body height 188 cm Raleigh Bo MD Work Phone: [facility] 08-30-2022 11:39-0400 Body mass index (BMI) [Ratio] 30.81 kg/m2 Raleigh Bo MD Work Phone: [facility] 08-30-2022 11:39-0400 Body weight 108.86 kg Raleigh Bo MD Work Phone: [facility] 08-30-2022 11:39-0400 Diastolic blood pressure 80 mm[Hg] Raleigh Bo MD Work Phone: [facility] 08-30-2022 11:39-0400 Heart rate 72 /min Raleigh Bo MD Work Phone: [facility] 08-30-2022 11:39-0400 Respiratory rate 15 /min Raleigh Bo MD Work Phone: [facility] 08-30-2022 11:39-0400 Systolic blood pressure 130 mm[Hg] Raleigh Bo MD Work Phone: [facility] 07-20-2022 11:03-0400 Body height 188 cm Huseyin Dee MD Work Phone: [facility] 07-20-2022 11:03-0400 Body mass index (BMI) [Ratio] 30.51 kg/m2 Huseyin Dee MD Work Phone: [facility] 07-20-2022 11:03-0400 Body weight 107.78 kg Huseyin Dee MD Work Phone: [facility] 07-20-2022 11:03-0400 Diastolic blood pressure 80 mm[Hg] Huseyin Dee MD Work Phone: [facility] 07-20-2022 11:03-0400 SaO2% (BldA) [Mass fraction] 91 % Huseyin Dee MD Work Phone: [facility] 07-20-2022 11:03-0400 Systolic blood pressure 158 mm[Hg] Huseyin Dee MD Work Phone: [facility] 03-31-2022 09:05-0500 Diastolic blood pressure 74 mm[Hg] Sintia Corina Woodruff Work Phone: [facility] Work Phone: 03-31-2022 09:05-0500 Systolic blood pressure 136 mm[Hg] Sintia C Woodruff Work Phone: [facility] Work Phone: 03-31-2022 09:04-0500 Body height 186.69 cm Sintia C Woodruff Work Phone: [facility] Work Phone: 03-31-2022 09:04-0500 Body mass index (BMI) [Ratio] 31.14 kg/m2 Sintia C Mukesh Work Phone: [facility] Work Phone: 03-31-2022 09:04-0500 Body surface area Derived from formula 2.33 m2 Sintia C Mukesh Work Phone: [facility] Work Phone: 03-31-2022 09:04-0500 Body temperature 97 [degF] Sintia Corina Woodruff Work Phone: [facility] Work Phone: 03-31-2022 09:04-0500 Body weight 108.52 kg Sintia C Mukesh Work Phone: [facility] Work Phone: 03-31-2022 09:04-0500 Diastolic blood pressure 70 mm[Hg] Sintia C Woodruff Work Phone: [facility] Work Phone: 03-31-2022 09:04-0500 Heart rate 65 /min Sintia C Mukesh Work Phone: [facility] Work Phone: 03-31-2022 09:04-0500 Respiratory rate 16 /min Sintia C Mukesh Work Phone: [facility] Work Phone: 03-31-2022 09:04-0500 SaO2% (BldA) [Mass fraction] 97 % Sintia C Mukesh Work Phone: [facility] Work Phone: 03-31-2022 09:04-0500 Systolic blood pressure 151 mm[Hg] Sintia C Woodruff Work Phone: [facility] Work Phone: 09-28-2021 09:16-0400 Body height 186.69 cm Sintia C Mukesh Work Phone: [facility] Work Phone: 09-28-2021 09:16-0400 Body mass index (BMI) [Ratio] 32.3 kg/m2 Sintia C Mukesh Work Phone: [facility] Work Phone: 09-28-2021 09:16-0400 Body surface area Derived from formula 2.37 m2 Sintia C Mukesh Work Phone: [facility] Work Phone: 09-28-2021 09:16-0400 Body temperature 97.2 [degF] Sintia C Woodruff Work Phone: [facility] Work Phone: 09-28-2021 09:16-0400 Body weight 112.58 kg Sintia C Woodruff Work Phone: [facility] Work Phone: 09-28-2021 09:16-0400 Diastolic blood pressure 73 mm[Hg] Sintia C Woodruff Work Phone: [facility] Work Phone: 09-28-2021 09:16-0400 Heart rate 56 /min Sintia C Mukesh Work Phone: [facility] Work Phone: 09-28-2021 09:16-0400 Respiratory rate 16 /min Sintia C Woodruff Work Phone: [facility] Work Phone: 09-28-2021 09:16-0400 SaO2% (BldA) [Mass fraction] 98 % Sintia C Mukesh Work Phone: [facility] Work Phone: 09-28-2021 09:16-0400 Systolic blood pressure 130 mm[Hg] Sintia C Mukesh Work Phone: [facility] Work Phone: 05-26-2021 18:56-0500 Diastolic blood pressure 69 mm[Hg] Archie Hurtado MD Work Phone: [facility] 05-26-2021 18:56-0500 Heart rate 65 /min Archie Hurtado MD Work Phone: [facility] 05-26-2021 18:56-0500 Respiratory rate 18 /min Archie Hurtado MD Work Phone: [facility] 05-26-2021 18:56-0500 SaO2% (BldA) [Mass fraction] 97 % Archie Hurtado MD Work Phone: [facility] 05-26-2021 18:56-0500 Systolic blood pressure 149 mm[Hg] Archie Hurtado MD Work Phone: [facility] 05-25-2021 12:04-0500 Body height 185.4 cm Archie Hurtado MD Work Phone: [facility] 05-25-2021 12:04-0500 Body mass index (BMI) [Ratio] 34.04 kg/m2 Archie Hurtado MD Work Phone: [facility] 05-25-2021 12:04-0500 Body temperature 98.1 [degF] Archie Hurtado MD Work Phone: [facility] 05-25-2021 12:04-0500 Body weight 117.03 kg Archie Hurtado MD Work Phone: [facility] 03-27-2021 08:58-0500 Body mass index (BMI) [Ratio] 26.6 kg/m2 Sintia Mayorga Work Phone: [facility] Work Phone: 03-27-2021 08:58-0500 Body surface area Derived from formula 2.18 m2 Sintia Calleshael Work Phone: [facility] Work Phone: 03-27-2021 08:58-0500 Body temperature 99.5 [degF] Sintia Corina Mukesh Work Phone: [facility] Work Phone: 03-27-2021 08:58-0500 Body weight 92.71 kg Sintia Marmichael Work Phone: [facility] Work Phone: 03-27-2021 08:58-0500 Diastolic blood pressure 79 mm[Hg] Sintia C Woodruff Work Phone: [facility] Work Phone: 03-27-2021 08:58-0500 Heart rate 64 /min Sintia C Woodruff Work Phone: [facility] Work Phone: 03-27-2021 08:58-0500 Respiratory rate 16 /min Sintia C Mukesh Work Phone: [facility] Work Phone: 03-27-2021 08:58-0500 SaO2% (BldA) [Mass fraction] 95 % Sintia C Woodruff Work Phone: [facility] Work Phone: 03-27-2021 08:58-0500 Systolic blood pressure 145 mm[Hg] Sintia C Mukesh Work Phone: [facility] Work Phone: 09-23-2020 08:44-0400 Body height 186.69 cm Sintia C Woodruff Work Phone: [facility] Work Phone: 09-23-2020 08:44-0400 Body mass index (BMI) [Ratio] 33.07 kg/m2 Sintia C Woodruff Work Phone: [facility] Work Phone: 09-23-2020 08:44-0400 Body surface area Derived from formula 2.39 m2 Sintia C Mukesh Work Phone: [facility] Work Phone: 09-23-2020 08:44-0400 Body temperature 95.3 [degF] Sitnia C Mukesh Work Phone: [facility] Work Phone: 09-23-2020 08:44-0400 Body weight 115.24 kg Sintia C Woodruff Work Phone: [facility] Work Phone: 09-23-2020 08:44-0400 Diastolic blood pressure 69 mm[Hg] Sintia C Woodruff Work Phone: [facility] Work Phone: 09-23-2020 08:44-0400 Heart rate 63 /min Sintia C Woodruff Work Phone: [facility] Work Phone: 09-23-2020 08:44-0400 Respiratory rate 16 /min Sintia C Mukesh Work Phone: [facility] Work Phone: 09-23-2020 08:44-0400 SaO2% (BldA) [Mass fraction] 94 % Sintia C Mukesh Work Phone: [facility] Work Phone: 09-23-2020 08:44-0400 Systolic blood pressure 124 mm[Hg] Sintia C Woodruff Work Phone: [facility] Work Phone: 07-04-2020 10:55-0400 BMI [...] Start: 04-02-2023 End: 04-02-2023 ambulatory SINTIA MAYORGA Facility:[facility] Start: 04-02-2023 End: 04-02-2023 Patient encounter procedure Pooja De León APRN.BOTTOM CEMENTER Work Phone: [facility] Procedures Date Procedure Procedure [...] w/le ast 12 lds w/i&r Carey Enriquez AMORTIZATION CLERK - BOTTOM CEMENTER Work Phone: Start: 05-26-2021 Assay of troponin [...] Work Phone: Start: 04-06-2012 Colonoscopy Kaitlyn ross AMORTIZATION CLERK.BOTTOM CEMENTER Work Phone: Cardiac catheterization Beena Mayorga Colonoscopy Sintia guevara Plan of Treatment Date Care Activity Detail Author Start: 06-09-2027 Lipid panel Lipid Screening [facility] Start: 12-14-2025 Screening for malignant neoplasm of colon [facility] Start: 07-15-2025 Diabetes Screening Diabetes Screening [facility] Start: 08-24-2023 Creatinine measurement Creatinine Level [facility] Start: 08-24-2023 Lipid panel Lipid Panel [facility] Start: 08-24-2023 Potassium measurement Potassium Level [facility] Start: 07-16-2023 Creatinine measurement Serum Creatinine [facility] Start: 07-12-2023 End: 02-28-2025 US Heart Transthoracic Transthoracic echocardiogram (TTE) complete with contrast, bubble, strain, and 3D PRN CV Echocardiography Routine Aneurysm of ascending aorta without rupture Expected: 07/12/2023 (Approximate), Expires: 02/28/2025 [facility] Work Phone: Immunizations Immunization Date Immunization Notes Care Provider Daniel robbins 03-02-2022 influenza virus vaccine, unspecified formulation Raleigh Bo MD Work Phone: [facility] 03-26-2021 Moderna COVID-19 Vaccine 100 MCG/0.5ML Intramuscular Suspension Sintia Mayorga Work Phone: [facility] Work Phone: 09-23-2020 pneumococcal conjuga te vaccine, 13 valent; Translations: [Prevnar 13 Intramuscular Suspension] Sintia Mayorga Work Phone: [facility] Work Phone: Payers Date Payer Category Payer Unknown 2015 Unknown [id number] 2009 Medicare [id number] 2008 Medicare 2008 Private Health Insurance 1950 Unknown [id number] 2.16.8 [id number] 1950 Unknown [id number] 2.16.8 [id number] 1950 Unknown [id number] 2.16.8 [id number] 1950 Unknown [id number] 2.16.8 [id number] 1950 Unknown [id number] 2.16.8 [id number] 1950 Unknown [id number] 2.16.8 [id number] 1950 Unknown [id number] 2.16. [id number] 1950 Unknown [id number] 2.16. [id number] 1950 Unknown [id number] [id number] Medicare [id number] Social History Date Type Detail Facility Start: 10-09-2019 End: 04-02-2023 Tobacco smoking status TNIS Former smoker [facility] End: 10-31-1974 History of tobacco use Current smoker [facility] Work Phone: Start: 10-09-2019 End: 04-02-2023 Tobacco use and exposure Never used [employer] Work Phone: Start: 10-09-2019 End: 02-28-2023 Alcohol intake Current non-drinker of alcohol (finding) [employer] Work Phone: Start: 1950 Sex Assigned At Not on file [facility] Work Phone: Start: 06-26-2022 End: 08-30-2022 Exposure to SARS-CoV-2 (event) Not sure [employer] Work Phone: Start: 03-23-2020 End: 08-30-2022 Occasional alcohol use Occasional alcohol use [facility] Functional Status Date Assessment Result Facility NEGATED: Highlighted row Functional performance Functional status health issues are not documented Disease [facility] Work Phone: Mental Status Date Assessment Result Facility NEGATED: Highlighted row Cognitive function [Interpretation] Cognitive status health issues are not documented Disease [facility] Work Phone: Clinical Notes 02-25-2018 to 04-02-2023 Patient InstructionsPooja De León APRN.BOTTOM CEMENTER - 04/02/2023 9:19 AM Ariel Bo MD - 02/28/2023 11:00 AM ESTPatient Kaitlyn Snowden APRN.BOTTOM CEMENTER - 12/17/2022 11:56 AM EDTInstructions Note Date & Type Note Facility 04-02-2023 Note HNO ID: [id number] Author: Pooja De León APRN.BOTTOM CEMENTER Service: ? Author Type: Nurse Practitioner Type: Progress Notes Filed: 04/02/2023 9:47 AM Note Text: This note was created using Asthmatrackerter. Subjective Justo Clark is a 73 year [...] No date: High blood pressure No date: [place] (hard of hearing) No date: Numbness and [...] Plan: Olopatadine (PATADAY (more content not included)... [facility] 04-02-2023 Instructions Pooja De León [...] a workup than what is offered in [facility] if no improvement. Consider ENT. -Signs [...] or other concerns. documented in this encounter [facility] 04-02-2023 History of Present illness Narrative This note was created using College Snack Attackriter. Subjective Justo Clark is a 73 year [...] No date: High blood pressure No date: [place] (hard of hearing) No date: Numbness and [...] Plan: methylPREDNISolone (MEDROL DOSE-PACK) 4 mg Dose-Pack (R24.698) TMJ click Plan: methylPREDNISolone (MEDROL DOSE-PACK) 4 [...] which included preparing to see the patient, ofls-jf-wagv patient care, completing clinical documentation, obtaining and/or reviewing separately obtained history, performing a medically appropriate examination, counseling and educating the patient/family/caregiver, and ordering medications, tests, or procedures. documented in this encounter [facility] 02-28-2023 History of Present illness Narrative [facility] [address] [facility] [address] Dept: [phone] Dept Loc: [phone] Visit type: Established : 1950 Chief Complaint: [...] spasm Heart failure with reduced ejection fraction ([facility]) ([facility]) History of colon polyps Hypercholesteremia Hypertension Lumbar disc disease Non-STEMI (non-ST elevated myocardial infarction) ([facility]) ([facility]) Nonischemic congestive cardiomyopathy ([facility]) ([facility]) 11/28/2016 hypertensive heart disease, EF 40% NSTEMI (non-ST elevated myocardial infarction) ([facility]) ([facility]) 11/28/2016 Unstable left ankle orthotic Dr. Chavarria Past Surgical History Past Surgical History: Procedure Laterality Date CARDIAC CATHETERIZATION 11/28/2016 CARDIAC PROCEDURE 11/28/2016 CHG US GUIDANCE NEEDLE PLACEMENT IMG S&I 2011 benign COLONOSCOPY 12/15/2015 COLONOSCOPY 09/2010 repeat 3-5yrs PROSTATE BIOPSY 07/2016 Benign PROSTATE BIOPSY 02/2017 SEPTOPLASTY 2004 SPINE SURGERY Lammy L4-5 HNP Family History Family History Problem Relation Name Age of Onset Other (30142) Mother 92yrs Old age Colon cancer Paternal [...] in the morning., Disp: , Rfl: HYDROcodone-acetaminophen (Russell) 10-325 MG tablet, Take 1 tablet by [...] - 125 pg/mL Final 08/23/22 Labs at [place]: Na+ 141 Potassium 4.5 Creatinine 1.9 Calcium [...] and appropriate beta blockers. Aorta Ultrasound at [place] 05/20/22: IMPRESSION: No Aneurysm noted. Ectasia of [...] earlier if symptoms documented in this encounter [facility] 12-17-2022 Note HNO ID: [id number] Author: Kaitlyn Nair APRN.SERGE Service: ? Author Type: Nurse Practitioner Type: Progress Notes Filed: 12/17/2022 2:43 PM Note Text: This note was created using College Snack Attackriter. Subjective Justo Clark is a 72 year [...] Heart attack (HCC) NSTEMI High blood pressure [place] (hard of hearing) Numbness and tingling of [...] and antihistamine eye drops Kaitlyn Nair APRN.CNP [facility] 12-17-2022 Instructions Kaitlyn Nair APRN.CNP [...] even if the symptoms go away. 2. Ltpa-exz-adccubb pain medication may be taken or other [...] sprays and irrigation kits can be purchased yhhy-bii-cceubsn. Saline mixes can also be purchased or [...] are often combined with antihistamines in oral, qzex-zdf-oyldius allergy drugs. In the [place], pseudoephedrine [...] inflammation. This drug is available as an vrmq-vfn-mykifmg nasal spray that must be used three [...] costly. Immunotherapy is usually started by an manager reading. Treatment begins with several months of weekly [...] bleeds) or azelastine. documented in this encounter [facility] 12-17-2022 History of Present illness Narrative Images from the original note were not included. This note was created using Asthmatrackerter. Subjective Justo Clark is a 72 year [...] Heart attack (HCC) NSTEMI High blood pressure [place] (hard of hearing) Numbness and tingling of [...] steroid and antihistamine eye drops Kaitlyn Nair APRN.BOTTOM CEMENTER documented in this encounter [facility] 08-30-2022 History of Present illness Narrative [facility] [address] [facility] [address] Dept: [phone] Dept Loc: [phone] Visit type: Established : 1950 Chief Complaint: [...] Diagnosis Date Aortic regurgitation Aortic root dilatation ([facility]) Arrhythmia 2018 Cancer ([facility]) ([facility]) prostate Cerebral artery occlusion with cerebral infarction ([facility]) Chronic kidney disease Diabetes mellitus ([facility]) Diverticulitis ED (erectile dysfunction) Esophageal reflux Esophageal spasm Heart failure with reduced ejection fraction ([facility]) ([facility]) History of colon polyps Hypercholesteremia Hypertension Lumbar disc disease Non-STEMI (non-ST elevated myocardial infarction) ([facility]) ([facility]) Nonischemic congestive cardiomyopathy ([facility]) ([facility]) 11/28/2016 hypertensive heart disease, EF 40% NSTEMI (non-ST elevated myocardial infarction) ([facility]) ([facility]) 11/28/2016 Unstable left ankle orthotic Dr. Chavarria Past Surgical History Past Surgical History: Procedure Laterality Date CARDIAC CATHETERIZATION 11/28/2016 CARDIAC PROCEDURE 11/28/2016 CHG US GUIDANCE NEEDLE PLACEMENT IMG S&I 2011 benign COLONOSCOPY 12/15/2015 COLONOSCOPY 09/2010 repeat 3-5yrs PROSTATE BIOPSY 07/2016 Benign PROSTATE BIOPSY 02/2017 SEPTOPLASTY 2003 SPINE SURGERY Lammy L4-5 HNP Family History Family History Problem Relation Name Age of Onset Other (78816) Mother 92yrs Old age Colon cancer Paternal [...] in the morning., Disp: , Rfl: HYDROcodone-acetaminophen (Russell) 10-325 MG tablet, Take 1 tablet by [...] - 125 pg/mL Final 08/23/22 Labs at [place]: Na+ 141 Potassium 4.5 Creatinine 1.9 Calcium [...] and appropriate beta blockers. Aorta Ultrasound at [place] 05/20/22: IMPRESSION: No Aneurysm noted. Ectasia of [...] earlier if symptoms documented in this encounter [facility] 07-20-2022 History of Present illness Narrative [facility] Cardiology Note Chief Complaint: Chief Complaint Patient presents with New Patient History of Present Illness: Jusot Clark is a 72 y.o. male presenting [...] Diagnosis Date Aortic regurgitation Aortic root dilatation ([facility]) ([facility]) Cerebral artery occlusion with cerebral infarction ([facility]) ([facility]) Chronic kidney disease Diverticulitis ED (erectile dysfunction) Esophageal reflux Esophageal spasm Heart failure with reduced ejection fraction ([facility]) ([facility]) History of colon polyps Hypercholesteremia Hypertension Lumbar disc disease Non-STEMI (non-ST elevated myocardial infarction) ([facility]) ([facility]) Nonischemic congestive cardiomyopathy ([facility]) ([facility]) 11/28/2016 hypertensive heart disease, EF 40% NSTEMI (non-ST elevated myocardial infarction) ([facility]) ([facility]) 11/28/2016 Unstable left ankle orthotic Dr. Chavarria Past Surgical History Past Surgical History: Procedure Laterality Date CARDIAC CATHETERIZATION 11/28/2016 CARDIAC PROCEDURE 11/28/2016 CHG US GUIDANCE NEEDLE PLACEMENT IMG S&I 2011 benign COLONOSCOPY 12/15/2015 COLONOSCOPY 09/2010 repeat 3-5yrs PROSTATE BIOPSY 07/2016 Benign PROSTATE BIOPSY 02/2017 SEPTOPLASTY 2004 SPINE SURGERY Lammy L4-5 HNP Family History Family History Problem Relation Name Age of Onset Other (84926) Mother 92yrs Old age Colon cancer Paternal [...] in the morning., Disp: , Rfl: HYDROcodone-acetaminophen (Russell) 10-325 MG tablet, Take 1 tablet by [...] questions were answered. documented in this encounter [facility] 07-14-2022 Telephone encounter Note Patient called and asked if order could be placed for BMP. He would like this order to be faxed to [facility] [place] [address] Road phone [phone] and fax [phone] [facility] 07-14-2022 Miscellaneous Notes Patient called and asked if order could be placed for BMP. He would like this order to be faxed to [facility]-[address] [place] [address] Road phone [phone] and fax [phone] documented in this encounter [facility] 07-06-2022 Note Spoke with patient r egarding pre procedure instructions for nuclear stress test on 07-06 at 11:45, including no caffeine for 12 hours prior to test and NPO 4 hours prior. He verbalized understanding. [facility] 05-26-2021 Note Clinical Decision Un it [...] in the morning unless emergent. Spoke with [facility] to discuss admitting the patient because it will be over 2 midnights for formal admission, admit with Dr. Salinas he states that given the reduced ejection fraction to 48%, that he is optimized on all of his medications at this time, states he already has a auto hiker Dr. Anderson, and patient can follow-up outpatient, [...] that he needs to follow-up with his auto hiker within the next week, patient expressed understanding, [...] # 1.1 1.0 - 4.3 10*3/uL Absolute Fallon # 0.7 0.0 - 0.8 10*3/uL Absolute Eos # 0.1 0.0 - 0.5 10*3/uL Absolute Baso # 0.0 0.0 - 0.2 10*3/uL Basic Metabolic Panel Result Value Ref Range Sodium 139 135 - 145 mmol/L Potassium 5.3 (H) 3.5 - 5.1 mmol/L Chloride 109 (H) 98 - 107 (more content not included)... [facility] 05-26-2021 History of Present illness Narrative [...] # 1.1 1.0 - 4.3 10*3/uL Absolute Fallon # 0.7 0.0 - 0.8 10*3/uL Absolute [...] 48.6 (A) >60 mL/min EGFR IF NonAfrican Northern Irish 42.0 (A) >60 mL/min Calcium 9.1 8.4 [...] 50.1 (A) >60 mL/min EGFR IF NonAfrican Northern Irish 43.2 (A) >60 mL/min Calcium 8.9 8.4 [...] # 1.2 1.0 - 4.3 10*3/uL Absolute Fallon # 0.8 0.0 - 0.8 10*3/uL Absolute [...] Radiology ACCESSION EXAM DATE/TIME PROCEDURE ORDERING PROVIDER [id number] 05/25/2021 12:54 EST CR Chest Portable [id number] -LEONILA DIAZ CPT code 65411 Reason For Exam (CR Chest Portable) CHEST [...] your medications as prescribed, follow-up with your auto hiker Dr. Anderson within the next 1 week. Call his office tomorrow. Return to the emergency department if you experience any new or worsening symptoms including worsening chest pain, shortness of breath, lightheadedness, dizziness, nausea or vomiting. documented in this encounter [facility] Work Phone: 03-26-2021 History of Present illness Narrative He is here for follow up.He had his moderna booster yesterdayHad [employer] for primary seriesPreDM- A1c 6.4 in - [...] labs done in Feb reviewedCr 1.8GFR 38 [facility] Work Phone: documented as of this encounter (statuses as of 12/17/2022) [facility]11-10[facility]2018 History of Past illness Narrative* Problem Noted Date Diagnosed Date Resolved Date Aphagia 02/25/2018 02/28/2018 documented as of this encounter (statuses as of 04/02/2023) [facility] Diagnosis Chest pain, unspecified type- Primary Decreased cardiac ejection fraction Aortic regurgitation Aortic valve disorders documented in this encounter [facility] Work Phone: Evaluation note* Diagnosis Palpitations VT (ventricular tachycardia) Paroxysmal ventricular tachycardia documented in this encounter [facility]* Diagnosis PVC (premature ventricular contraction)- Primary Other premature beats documented in this encounter [facility]* Diagnosis Primary hypertension Unspecified essential hypertension Heart failure with reduced ejection fraction (CMS/HCC) (HCC) documented in this encounter [facility]* Diagnosis PVC's (premature ventricular contractions)- Primary Other premature beats documented in this encounter [facility]* Diagnosis Acute otitis media, left- Primary Unspecified otitis media Seasonal allergic rhinitis, unspecified trigger [facility] Diagnosis Aneurysm of ascending aorta without rupture (HCC)- Primary documented in this encounter [facility]* Diagnosis Acute otalgia, bilateral- Primary TMJ click Temporomandibular joint sounds on opening and/or closing the jaw Itchy eyes Other ill-defined disorder of eye [facility]* The patient [...] A1c 6.6 * Reports will be seeing [place] hematology in 2 weeks for anemia * Left ear pain x 1 month - intermittent * Wears hearing aids * No BROWN or vision changes * Some sinus drainage -[facility] Work Phone: History of Present [...] * Has eye doctor - goes to [place] - denies retinopathy * Has neuropathy in [...] * Thyroid function normal * Reports saw [place] hematology for anemia - reports they ran tests, and I am fine [facility] Work Phone: Summary Purpose Family [...] FoundDocuments on File Type Date Recorded Patient Communication Manager Expl anation ACP-Advance Directive ACP-Power of Mechanical Design Engineer Products Latest Code Status on File Code Status [...] 1950 Associated Diagnoses: None Author: DALILA CHAKRABORTY, DOWNEY Hospital Course 68 yo male with prostate [...] Everywhere. * Foreign Body in the Ear (Citizen Of [place]) documented in this encounter Assessments Diagnosis Foreign [...] monitor (24 hours) Raleigh Bo MD [address] [place] [address] Referral ID Status Reason Start Date Expiration Date Visits Re quested Visits Authorized [id number] Closed 06/02/2022 11/29/2022 1 1 Specialty Diagnoses / Procedures Referred By Millieac t Referred To Contact Cardiology Diagnoses Aneurysm of ascending aorta without rupture (HCC) Procedures Transthoracic echocardiogram (TTE) complete with contrast, bubble, strain, and 3D PRN [place] ECHO TTHRC R-T 2D W/WOM-MODE COMPL SPEC&COLR D [place] TTE W OR WO FOL WCON,DOPPLER Raleigh Bo MD [address] [place] [address] Referral ID Status Reason Start Date Expiration Date V isits Requested Visits Authorized [id number] Pending Review 02/28/2023 02/28/2024 1 1 Additional [...] AUTHOR AUTHOR'S ORGANIZ ATION 04/04/2018 Blanca Powers [facility] DATE CREATED AUTHOR AUTHOR'S ORGANIZ ATION 05/11/2018 [facility] DATE CREATED AUTHOR AUTHOR'S ORGANIZ ATION 05/17/2018 [facility] DATE CREATED AUTHOR AUTHOR'S ORGANIZ ATION 10/15/2018 [facility] DATE CREATED AUTHOR AUTHOR'S ORGANIZ ATION 06/26/2020 [facility] DATE CREATED AUTHOR AUTHOR'S ORGANIZ ATION 08/16/2021 [facility] DATE CREATED AUTHOR AUTHOR'S ORGANIZ ATION 04/07/2022 [facility] DATE CREATED AUTHOR AUTHOR'S ORGANIZ ATION 07/20/[address] [facility] DATE CREATED AUTHOR AUTHOR'S ORGANIZ ATION 09/25/2022 [facility] DATE CREATED AUTHOR AUTHOR'S ORGANIZ ATION 03/01/2023 [facility] DATE CREATED AUTHOR AUTHOR'S ORGANIZ ATION 04/04/2023 [facility] Reason for Visit (unrecogniz ed section and content) Reason Comments Chest Pain Specialty Diagnoses / Procedures Referred By Contac t Referred To Contact Diagnoses Palpitations Procedures [place] ECHO TTHRC R-T 2D W/WOM-MODE COMPL SPEC&COLR D [facility]In[facility]iology [address] [place] [address] Referral ID Status Reason Start Date Expiration Date Visits Re quested Visits Authorized [id number] 1 1 Reason Comments New Patient Reason [...] Care Teams (unrecognized sec tion and content) Founder And Chief Executive Officer Relationship Specialty Start Date End Date Sintia Mayorga DO [address] [place] [address] [address] [place] [id number] PCP - General 03/29/18 Founder And Chief Executive Officer Relationship Specialty Start Date End Date Sintia Mayorga DO [address] [place] [address] [address] [place] [phone] PCP - General 03/29/18 Founder And Chief Executive Officer Relationship Specialty Start Date End Date Sintia Mayorga DO [address] [place] [address] [address] [place] [address] PCP - General 03/29/18 Founder And Chief Executive Officer Relationship Specialty Start Date End Date Sintia Mayorga DO [address] [place] [address] [address] [place] [address] PCP - General 03/29/18 Founder And Chief Executive Officer Relationship Specialty Start Date End Date Sintia Mayorga DO [address] [place] [address] [address] [place] [address] PCP - General Family Medicine 06/24/20 Founder And Chief Executive Officer Relationship Specialty Start Date End Date Sintia Mayorga DO [address] [place] [address] PCP - General 03/29/18 Founder And Chief Executive Officer Relationship Specialty Start Date End Date Sintia Mayorga DO [address] [address] [place] [address] PCP - General Family Medicine 06/24/20 Source Comments (unrecognize d section and content) In the event this informatio n is protected by the Federal Confidentiality of Alcohol and Drug Abuse Patient Records regulations: The Federal rules restrict any use of the information to criminally investigate or prosecute any alcohol or drug abuse patient.[facility] the event this information is protected by the Federal Confidentiality of Alcohol and Drug Abuse Patient Records regulations: The Federal rules restrict any use of the information to criminally investigate or prosecute any alcohol or drug abuse patient.[facility] FOR RECORDS PERTAINING TO PATIENTS WHO [...] BE BASED ON THE PRIMARY CLINICAL RECORDS. [facility] [facility]. provides no warranty or guarantee of the accuracy or completeness of information in this document.
[2023-04-23 09:51] LABS: Absolute Lymphocyte Count 1.93 X10^3/uL (0.83-4.51); Absolute Neutrophil Count 3.6 X10^3/uL (2.0-7.7); Basophil# 0.04 X10^3/uL; Basophil% 0.6 % (0-1); Eosinophil# 0.13 X10^3/uL; Hematocrit 39.1 % (40-54); Hemoglobin 12.7 g/dL (13.0-16.5); Lymphocyte # 1.93 X10^3/ul (0.83-4.51); Lymphocyte % 29.9 % (19-41); Mean Corp Hgb Conc 32.5 g/dL (32-36); Mean Corpuscular Hgb 28.5 pg (27.0-32.0); Mean Corpuscular Volume 87.7 fL (80-94); Mean Platelet Vol. 10.9 fl (6.2-12.0); Monocyte# 0.75 X10^3/uL; Monocyte% 11.6 % (0-10); NRBC Flagged by Analyzer 0 % (0-5); Neutrophil # 3.57 X10^3/uL (2.7-7.7); Neutrophil % 55.4 % (47-70); Platelet Count 169 K/mm3 (150-450); RBC Distribution Width CV 13.8 % (11.6-14.6); RBC Distribution Width SD 44.4 fl (35.1-43.9); Red Blood Count 4.46 M/mm3 (4.6-6.2); White Blood Count 6.5 K/mm3 (4.4-11.0)
--- NOTE | 2023-04-23 09:54 | CT_ITS ---
INDICATION: right flank pain EXAMINATION: CT ABDOMEN AND PELVIS WITHOUT CONTRAST - CT Abdomen And Pelvis W/O Contrast Injection TECHNIQUE: Helically acquired images were obtained of the abdomen and pelvis without oral or IV contrast. A radiation dose optimization technique was used for this scan. IV Contrast dosage and agent: None. Oral contrast: None. RADIATION DOSAGE (If Supplied By Facility): CTDIvol = ( 18.50 ) mGy, DLP = ( 1012.03 ) mGycm COMPARISON: Prior study dated: 12/06/2016. FINDINGS: LOWER CHEST: Lung bases are clear. No cardiomegaly or pericardial effusion. LIVER: Homogeneous. No focal mass. GALLBLADDER AND BILIARY TREE: No calcified gallstones. No gallbladder distension or wall edema. No intra- or extrahepatic biliary ductal dilation. PANCREAS: No focal cystic or solid mass. SPLEEN: Normal size without focal cystic or solid mass. ADRENAL GLANDS: No nodules. KIDNEYS AND URETERS: Persistent moderate left hydronephrosis. Mild right hydronephrosis new since previous exam without evidence of ureteral stone. 1.5 cm cyst in the right kidney appears to be simple and no further follow-up exam is needed although is larger than the previous exam. PERITONEUM: No ascites or free air. No other fluid collection. BOWEL: Small hiatal hernia. Normal in caliber small bowel loops. Diverticulosis of the sigmoid colon and scattered diverticula without evidence of acute diverticulitis. No evidence of acute appendicitis. LYMPH NODES: No enlarged mesenteric or retroperitoneal lymph nodes. VESSELS: Aorta is non-dilated. URINARY BLADDER: Bladder is not well distended. REPRODUCTIVE ORGANS: No pelvic masses. ABDOMINAL WALL: Small bilateral inguinal hernias containing fat larger on the left side. BONES: No lytic or blastic abnormality. CT/Abdomen/Pelvis without Cont IMPRESSION: 1. Mild bilateral hydronephrosis new on the right side without evidence of ureteral stones. 2. Small hiatal hernia. 3. No focal acute inflammatory process. 4. Small bilateral inguinal hernias containing fat. Electronically Signed: Eros Mckinney MD at 11:03 EST ,
--- NOTE | 2023-04-23 09:55 | EDS_ITS ---
HPI History of Present Illness Chief Complaint: Flank Pain Narrative Narrative: 73-year-old male presenting with nausea, vomiting, right flank pain. He was seen yesterday for dysuria. It was not believed that he had a kidney stone because he did not have any flank pain. Today he started having flank pain this morning on the right and started having nausea and vomiting. He states he takes [place] on a regular basis but did not try any of this at home because he was nauseous. No fevers or chills. He does have hematuria and dysuria. Patient states he has a distant history of kidney stone x 1. [facility] Medical History CVA (cerebral vascular accident) GERD (gastroesophageal reflux disease) Heart defect High cholesterol HTN (hypertension) Prostate CA Home Medications hydrocodone 10 mg-acetaminophen 325 mg tablet 1 ea PO TID 07/18/16 [History Last Taken 12/11/16] aspirin 81 mg chewable tablet 81 mg PO DAILY 12/11/16 [History Last Taken 12/11/16] atorvastatin 80 mg tablet 80 mg PO DAILY 12/11/16 [History Last Taken 12/11/16] lisinopril 5 mg tablet (Zestril) 10 mg PO DAILY 12/11/16 [History Last Taken 12/11/16] metoprolol succinate 25 mg tablet,extended release 24 hr 50 mg PO DAILY 12/11/16 [History Last Taken 12/11/16] aspirin 81 mg tablet,delayed release (Adult Low Dose Aspirin) 81 mg PO DAILY 02/16/18 [History Last Taken Unknown] lisinopril 10 mg tablet 10 mg PO DAILY 02/16/18 [History Last Taken Unknown] meloxicam 15 mg tablet (Mobic) 15 mg PO DAILY 02/16/18 [History Last Taken Unknown] metoprolol succinate 25 mg tablet,extended release 24 hr 25 mg PO DAILY 02/16/18 [History Last Taken Unknown] pantoprazole 40 mg tablet,delayed release 40 mg PO DAILY PRN GERD #90 tabs 02/16 [Rx Last Taken Unknown] polymyxin B sulfate 10,000 unit-trimethoprim 1 mg/mL eye drops (Polytrim) 2 drp ophthalmic (eye) .q4 hr #10 mL 02/16/18 [Rx Last Taken Unknown] omeprazole 40 mg capsule,delayed release 40 mg PO DAILY 01/23/21 [History Last Taken Unknown] rivaroxaban 20 mg tablet (Xarelto) 20 mg PO DAILY 01/23/21 [History Last Taken Unknown] cephalexin 500 mg capsule 500 mg PO Q12 #10 CAPSULES 04/22/23 [Rx Last Taken Unknown] Allergy/AdvReac Type Severity Reaction Status Date / Time morphine AdvReac Other Verified 04/23/23 08:30 Surgical History H/O laminectomy Social History Smoking Status: Former smoker ROS ROS ED Constitutional Constitutional ED: Denies chills, fever(s) or sweats Eyes Eyes: Denies blurry vision or change in vision ENT ENT ED: Denies ear pain or sore throat Cardiovascular Cardiovascular: Denies chest pain, palpitations or racing heartbeat Respiratory/Chest Respiratory/Chest: Denies cough, dyspnea or sputum Gastrointestinal Gastrointestinal: Reports abdominal pain, nausea and vomiting; Denies constipation or diarrhea Genitourinary Genitourinary ED: Denies dysuria, hematuria or urinary frequency Musculoskeletal Musculoskeletal: Reports back pain; Denies arthralgias, myalgias or neck pain Integumentary Denies abscess, Abrasions or rash Neurologic Neurologic: Denies headache(s), paresthesias or weakness Psychiatric Psychiatric: Denies anxiety, depression, suicidal ideation or suicidal thoughts Endocrine Endocrinology: Denies polydipsia or polyuria EXAM Physical Exam Const Vital Signs: 04/23/23 08:30 04/23/23 11:00 04/23/23 12:00 Temperature 97.6 F L Temperature Source Temporal Pulse Rate 104 H 59 L 65 Respiratory Rate 16 16 16 Blood Pressure 154/76 H 144/73 H 143/103 H Blood Pressure Mean 102 96 116 Pulse Ox 98 95 95 Oxygen Delivery Method Room Air Room Air Room Air Positive well nourished General Appearance ED: NAD; Negative for pallor HEENT Reports moist mucous membranes normocephalic and atraumatic Eyes PERRL and EOMs intact bilaterally Resp normal respiratory effort Cardio regular rate Rate: tachycardic GI Palpation: tender RLQ Bladder / Kidney Exam: CVA tenderness right Extremity normal to inspection Neuro oriented x3 and CN's II-XII intact bilaterally Sensorium / Orientation: alert Psych mental status grossly normal Skin General Skin Exam: Negative for jaundice or pallor MDM MDM MDM Narrative Medical decision making narrative: 73-year-old male presenting with right flank pain. He had dysuria and hematuria yesterday. This is progressed to flank pain. Patient has CVA tenderness on examination. Differential clues UTI, pyelonephritis, kidney stone, ureteral calculi, dehydration, anemia, electro abnormalities. CBC was obtained to assess white blood cell count, hemoglobin, platelets. BMP to assess renal function, electrolytes, glucose. Urinalysis to assess for UTI and occult blood. Patient medicated with Dilaudid 0.5 mg, Zofran, IV fluids. Given that he has increased pain and history of kidney stone I will obtain a CT abdomen pelvis without contrast. CBC and BMP unremarkable. Urinalysis again shows occult blood but no evidence of infection. Patient given several doses of Dilaudid here in the ER in case pain is not controlled. He is actively having hematuria. CT of the abdomen pelvis shows mild bilateral hydronephrosis with new hydronephrosis on the right side there is no evidence of ureteral stones. Given the patient's continued pain and urologic need we will have the patient transferred since we do not have urology on-call. I spoke with Dr. Mendoza at [facility] this is the patient's first choice to go to and she stated that they were not sure if they had urology on-call and recommended that I speak with urology. I spoke with Dr. Castro who is on-call for urology and recommended that the patient be transferred ER to ER for evaluation. After discussion we determined we would not place a Hurtado catheter as the patient's bladder is not distended. He will have the resident see him and determine whether he needs a procedure or not. Patient was amenable to this. Appropriate transfer paperwork is filled out. Impression: 1. Right flank pain 2. Bilateral hydronephrosis 3. Hematuria Lab Data Attestation: I reviewed the patient's lab results. Labs: Laboratory Results - last 24 hr 04/23/23 04/23/23 08:40 10:13 WBC 6.5 RBC 4.46 L Hgb 12.7 L Hct 39.1 L MCV 87.7 MCH 28.5 MCHC 32.5 RDW Std Deviation 44.4 H RDW Coeff of Barrett 13.8 Plt Count 169 MPV 10.9 Immature Gran % (Auto) 0.500 Neut % (Auto) 55.4 Lymph % (Auto) 29.9 Dolores % (Auto) 11.6 H Eos % (Auto) 2.0 Baso % (Auto) 0.6 Absolute Neuts (auto) 3.6 Absolute Lymphs (auto) 1.93 Nucleated RBC % 0 Sodium 140 Potassium 4.2 Chloride 110 H Carbon Dioxide 23.0 Anion Gap 7 BUN 32 H Creatinine 2.05 H Estim Creat Clear Calc 37.87 Est GFR (MDRD) Af Amer 41 L Est GFR (MDRD) Non-Af 34 L BUN/Creatinine Ratio 15.6 Glucose 187 H Calcium 9.2 Urine Color Yellow Urine Clarity Other Urine pH 6.0 Ur Specific [place] 1.020 Urine Protein 100 H Urine Glucose (UA) 50 H Urine Ketones Negative Urine Occult Blood 250 H Urine Nitrite Negative Urine Bilirubin Negative Urine Urobilinogen Normal Ur Leukocyte Esterase 25 H Urine RBC 0 SEEN Urine WBC 0-5 SEEN Ur Squamous Epith Cells 0 SEEN Urine Bacteria 0 SEEN Urine Mucus 0 SEEN Radiography Diagnostic Testing: Clinical Impression(s) from Imaging Studies Abdomen/Pelvis CT 04/23/23 09:54 IMPRESSION: 1. Mild bilateral hydronephrosis new on the right side without evidence of ureteral stones. 2. Small hiatal hernia. 3. No focal acute inflammatory process. 4. Small bilateral inguinal hernias containing fat. Electronically Signed: Eros Mckinney MD at 11:03 EST , Discharge Plan Triage Chief Complaint: Flank Pain ED Provider: Agustin Pittman Dx/Rx/DC Orders Prescriptions: No Action meloxicam [Mobic] 15 mg tablet 15 mg PO DAILY lisinopril 10 mg tablet 10 mg PO DAILY aspirin [Adult Low Dose Aspirin] 81 mg tablet,delayed release (DR/EC) 81 mg PO DAILY metoprolol succinate 25 mg tablet extended release 24 hr 25 mg PO DAILY polymyxin B sulf-trimethoprim [Polytrim] 10,000 unit- 1 mg/mL drops 2 drp OPHTHALMIC .q4 hr Qty: 10 0RF Rx Instructions: while awake; do not exceed 6 doses in 24 hours may use for 3-5 days pantoprazole 40 mg tablet,delayed release (DR/EC) 40 mg PO DAILY PRN (Reason: GERD) Qty: 90 3RF hydrocodone-acetaminophen 1 EACH tablet 1 ea PO TID aspirin 81 MG tablet,chewable 81 mg PO DAILY atorvastatin 80 MG tablet 80 mg PO DAILY lisinopril [Zestril] 5 MG tablet 10 mg PO DAILY metoprolol succinate 25 MG tablet extended release 24 hr 50 mg PO DAILY omeprazole 40 mg capsule,delayed release(DR/EC) 40 mg PO DAILY Patient Comments: TAKE ONE CAPSULE BY MOUTH EVERY DAY Xarelto 20 mg Tablet 20 mg PO DAILY cephalexin 500 mg capsule 500 mg PO Q12 Qty: 10 0RF Primary Care Provider: Sintia Mayorga Referrals: Sintia Mayorga DO [Primary Care Provider] -
[2023-04-23 09:56] LABS: Anion Gap 7 (5-15); BUN 32 mg/dL (7-18); BUN/Creat Ratio 15.6 RATIO (10-20); Calcium,Total 9.2 mg/dL (8.5-10.1); Chloride 110 mmol/L (98-107); Creatinine, Serum 2.05 mg/dL (0.70-1.30); EST Glomerular Filtration Rate 34 mL/min (>60); Est Glom Filt Rate - Afr Amer 41 mL/min (>60); Estimated Creatinine Clearance 37.87 ml/min; Glucose 187 mg/dL (74-106); Potassium 4.2 mmol/L (3.5-5.1); Sodium Level 140 mmol/L (136-145)
[2023-04-23] MEDS: HYDROmorphone 0.5 MG/0.5 ML SYRINGE IV ×3 (10:09→11:51)
[2023-04-23] MEDS: 0.9% Normal Saline (1000mL) 1,000 ML 999 ML IV (10:09)
[2023-04-23] MEDS: Ondansetron 4 MG/2 ML Vial IV (10:09)
[2023-04-23 10:17] LABS: Bacteria 0 SEEN /hpf (None Seen); Mucous, Urine 0 SEEN /hpf (<or=2+); Red Blood Cells-Urine 0 SEEN /hpf (0-5); Squamous Epithelial Cells - UA 0 SEEN /hpf (0-5)
[2023-04-23 10:34] LABS: Color, Urine Yellow (Yellow); Glucose, Dipstick 50 mg/dl (Normal); Ketone-Dipstick Negative (Negative); Leukocyte Esterase-Dipstick 25 /ul (Negative); Nitrite-Dipstick Negative (Negative); Occult Blood-Urine 250 /ul (Negative); Protein-Dipstick 100 mg/dl (Negative); Urine Bilirubin Dipstick Negative (Negative); Urine Clarity Other (Clear); Urine Urobilinogen Normal (Normal)
[2023-04-23 11:00] VITALS: BP 144/73; PULSE 59; RESP 16; O2SAT 95
[2023-04-23 11:14] LABS: White Blood Cells 0-5 SEEN /hpf (0-5)
--- NOTE | 2023-04-23 11:49 | NURSING ---
CALLED [facility], NOT ACCEPTING ANY OUTSIDE PATIENTS
[2023-04-23 12:00] VITALS: BP 143/103; PULSE 65; RESP 16; O2SAT 95
[2023-04-23] MEDS: 0.9% Normal Saline (1000mL) 1,000 ML 15 ML IV (12:00)
[2023-04-23 13:00] VITALS: BP 148/85; PULSE 65; RESP 16; O2SAT 96
[2023-04-23 14:00] VITALS: BP 140/92; PULSE 62; RESP 16; O2SAT 96
== END 2023-04-23 14:05 | disposition short-term general hospital (02) ==
PROVIDERS: Emergency Provider Student in an Organized Health Care Education/Training Program; PCP Family Medicine; Visit Provider Student in an Organized Health Care Education/Training Program
DX: N13.30 Unspecified hydronephrosis (principal); R31.9 Hematuria, unspecified; R10.9 Unspecified abdominal pain; R11.2 Nausea with vomiting, unspecified; R30.0 Dysuria; I10 Essential (primary) hypertension; E78.00 Pure hypercholesterolemia, unspecified; K21.9 Gastro-esophageal reflux disease without esophagitis; Z79.82 Long term (current) use of aspirin; Z79.01 Long term (current) use of anticoagulants; Z79.899 Other long term (current) drug therapy; Z87.891 Personal history of nicotine dependence; Z86.73 Personal history of transient ischemic attack (TIA), and cerebral infarction without residual deficits
CPT/HCPCS: 74176; 80048; 81001; 85025; 96361; 96374; 96375; 96376; 99284; J7030; A4216; J2405